=== PATIENT | female | born 1955 | race Caucasian/White ===

== ENCOUNTER 2020-01-27 02:28 | Emergency (ER) | payer OTHER ==
[2020-01-27] MEDS ORDERED: KETOROLAC TROMETHAMINE 30 MG/1 ML VIAL IVPUSH ONE (02:34)
[2020-01-27] MEDS ORDERED: SODIUM CHLORIDE 1,000 ML IV ONE (02:34)
[2020-01-27] MEDS ORDERED: morphine CARPU-JECT 2 MG/1 ML DISP.SYRIN IVPUSH ONE (02:34)
[2020-01-27] MEDS ORDERED: ONDANSETRON 4 MG/2 ML VIAL IVPUSH ONE (02:36)
--- NOTE | 2020-01-27 02:39 | PDOC ---
History of Present Illness - General Chief Complaint: Pain Stated Complaint: LLQ PAIN Time Seen by Provider: 01/27/20 02:33 History Source: Patient Exam Limitations: No Limitations - History of Present Illness Initial Comments: 01/27/20 02:36 This is a 64-year-old female who with family history of kidney stones who comes in complaining of left flank pain times a little over 1 week. Patient said she had severe left flank pain approximately 8 days ago which then resolved and has been dull over the last week but then tonight it became much worse again was associated with some nausea. Patient denies any vomiting or diarrhea. Patient denies any fevers or chills. Patient said she has been peeing more often but no dysuria. Patient said that she had a small amount of pinkish discharge vaginally which has since resolved. Patient is postmenopausal and said she does occasionally have some pinkish discharge. Allergies: as per nursing notes Past Medical History: none Social history: Lives with family. No smoking. No alcohol. No illicit drugs. Surgical history: None General: No fevers or chills, no weakness, no weight loss HEENT: No change in vision. No sore throat,. No ear pain CardioVascular: no chest discomfort. No shortness of breath Respiratory:No cough, or wheezing. Gastrointestinal: no nausea, vomiting, diarrhea or constipation, No rectal bleeding Genitourinary: No dysuria, hematuria, or frequency Musculoskeletal: No joint or muscle pain or swelling Neurologic: No headache, vertigo, dizziness or loss of consciousness Psychiatric: nor depression Skin: No rashes or easy bruising Endocrine: no increased thirst or abnormal weight change Allergic: no skin or latex allergy All other systems reviewed and normal Exam: General: Well-nourished well-developed individual, no acute distress HEENT: Neck: Supple, no meningeal signs, no lymphadenopathy Eyes::Pupils equal reactive and round, extraocular motion intact Chest: Nontender to palpation Abdomen: Soft, nondistended, normal bowel sounds, there is no tenderness on palpation diffusely Back: There is some left flank tenderness on palpation there is no left CVA tenderness. Extremities: Warm, dry, no cyanosis, clubbing, or edema Skin: No rashes Neuro: Alert and oriented x3, CN II - XII intact, nonfocal exam with normal strength, normal sensation, normal reflexes, normal gait, Psych: Normal mood and affect Assessment and plan: This is a 64-year-old female with left flank pain most lik garth secondary to renal stone. Patient has work-up initiated including CBC called UA urine culture and a spiral CT. Patient given fluids, pain medication and nausea medicine occasion. 01/27/20 04:22 Reevaluation patient's pain is resolved at this point. However her CAT scan does show she has a 1.5 x 2.4 mm stone with some mild hydronephrosis. Patient given copy of her CAT scan prescriptions for Percocet and Zofran was sent to the pharmacy. Patient work-up reveals a normal white count but there is some bacteria and white cells in her urine so I gave her a dose of IV ceftriaxone and sent her out on oral MicroBid. Patient will follow-up with a urologist. Past History - Medical History Home Medications: Ambulatory Orders Nitrofurantoin Monohyd/M-Cryst [Macrobid -] 100 mg PO BID #14 capsule 01/27/20 Ondansetron [Zofran -] 8 mg PO TID #15 tablet 01/27/20 Oxycodone HCl/Acetaminophen [Percocet 5-325 mg Tablet] 1 - 2 tab PO Q4H #20 tablet MDD 8 01/27/20 ED Treatment Course - LABORATORY CBC & Chemistry Diagram: 01/27/20 02:50 01/27/20 02:50 Discharge - Discharge Information Problems reviewed: Yes Clinical Impression/Diagnosis: Renal colic on left side, Cystitis Condition: Stable Disposition: HOME - Admission No - Additional Discharge Information Prescriptions: Nitrofurantoin Monohyd/M-Cryst [Macrobid -] 100 mg PO BID #14 capsule Oxycodone HCl/Acetaminophen [Percocet 5-325 mg Tablet] 1 - 2 tab PO Q4H #20 tablet MDD 8 Ondansetron [Zofran -] 8 mg PO TID #15 tablet - Follow up/Referral Referrals: Curry Mejia MD [Staff Physician] - - Patient Discharge Instructions Additional Instructions: Your work-up showed that you have a kidney stone that is causing some mild obstruction. In addition you also have a mild infection in your urine which we have given you a dose of IV antibiotics for however you will need to continue with oral antibiotics. I have sent a prescription to your pharmacy for Macrobid 1 tablet twice a day for 7 days. For pain take ibuprofen or Tylenol if you need something stronger have also sent a prescription to your pharmacy for Percocet 1 tablet every 4 hours as needed for pain. If you develop nausea get the prescription for Zofran and take it 1 tablet as often as every 8 hours. It is important you follow-up with a urologist I have given you the name of 1. Stay well-hydrated Return to the emergency department immediately with ANY new, persistent or worsening symptoms. Continue any medications as previously prescribed by your physician. You should follow up with your primary doctor as soon as possible regarding today's emergency department visit. . Please make sure your doctor reviews the results of your emergency evaluation. Thank you for coming to the Emergency Department today for your care. It was a pleasure to see you today. Please note that your evaluation is INCOMPLETE until you follow-up with your doctor. - Post Discharge Activity
[2020-01-27] MEDS ORDERED: morphine SULFATE 4 MG/ML VIAL ONE (02:54)
[2020-01-27 03:39] LABS: BASO % 0.8 % (0-2.0); EOS % 3.8 % (0-4.5); HEMATOCRIT 39.8 % (32.4-45.2); HEMOGLOBIN 13.4 GM/dL (10.7-15.3); LYMPH % 30.2 % (8-40); MCH 27.7 pg (25.7-33.7); MCHC 33.5 g/dl (32.0-36.0); MEAN CELL VOLUME 82.7 fl (80-96); NEUT % 57.2 % (42.8-82.8); PLATELET COUNT 269 K/MM3 (134-434); RBC 4.81 M/mm3 (3.60-5.2); RDW 13.3 % (11.6-15.6); WHITE BLOOD COUNT 8.6 K/mm3 (4.0-10.0)
[2020-01-27 03:54] LABS: EPI CELLS 6 /uL (0-25.1); HYALINE CASTS 6 /uL (0-3.1); URINE APPEARANCE CLOUDY; URINE BILIRUBIN NEGATIVE (NEGATIVE); URINE COLOR YELLOW; URINE GLUCOSE (UA) NEGATIVE (NEGATIVE); URINE KETONE NEGATIVE (NEGATIVE); URINE LEUK ESTERASE 3+ (NEGATIVE); URINE NITRITE POSITIVE (NEGATIVE); URINE PROTEIN 1+ (NEGATIVE); URINE RBC 72 /uL (0-23.9); URINE UROBILINOGEN 0.2 mg/dL (0.2-1.0); URINE WBC 1459 /uL (0-25.8)
[2020-01-27 04:01] LABS: ALBUMIN 3.7 g/dl (3.4-5.0); BLOOD UREA NITROGEN 20.5 mg/dL (7-18); CALCIUM 9.4 mg/dL (8.5-10.1); CREATININE 0.9 mg/dL (0.55-1.3); POTASSIUM 4.3 mmol/L (3.5-5.1); TOT PROT 6.7 g/dl (6.4-8.2)
[2020-01-27] MEDS ORDERED: CEFTRIAXONE 1,000 MG in DEXTROSE 5%-WATER - 50 ML IVPB ONE (04:09)
[2020-01-27] MEDS ORDERED: cefTRIAXone SODIUM 1 GM VIAL ONE (04:09)
[2020-01-27 04:11] LABS: BILIRUBIN,TOTAL 0.4 mg/dL (0.2-1)
[2020-01-27] MEDS ORDERED: CEFTRIAXONE 1 GM in DEXTROSE 5%-WATER - 50 ML IVPB ONE (04:37)
[2020-01-27 04:56] VITALS: TEMP 98.8; BMI 25.4
[2020-01-27 05:16] VITALS: BP 136/80; PULSE 86
== END 2020-01-27 05:17 | disposition home or self-care (01) ==
LOC: FER 02:28
PROC: 3E0337Z Introduction of Electrolytic and Water Balance Substance into Peripheral Vein, Percutaneous Approach (ICD-10-PCS; principal; 2020-01-27)
PROC: 3E033GC Introduction of Other Therapeutic Substance into Peripheral Vein, Percutaneous Approach (ICD-10-PCS; principal; 2020-01-27)
DX: N30.90 Cystitis, unspecified without hematuria (principal); N23 Unspecified renal colic
CPT/HCPCS: 36415; 74176-TC; 80053; 81003; 85025; 87086; 87186; 96361; 96365; 96375; 99285-25

== ENCOUNTER 2020-01-30 18:29 | Emergency (ER) | payer OTHER ==
[2020-01-30 18:47] VITALS: BMI 26.5
[2020-01-30] MEDS ORDERED: ACETAMINOPHEN INJECTION 100 ML IVPB ONE (20:51)
[2020-01-30] MEDS ORDERED: ACETAMINOPHEN 1000 MG/100 ML VIAL (NON FORMULARY) IVPB ONE (20:51)
[2020-01-30 21:08] LABS: BASO % 0.3 % (0-2.0); EOS % 1.1 % (0-4.5); HEMATOCRIT 35.6 % (32.4-45.2); HEMOGLOBIN 12.3 GM/dl (10.7-15.3); LYMPH % 8.3 % (8-40); MCH 27.6 pg (25.7-33.7); MCHC 34.5 g/dl (32.0-36.0); MEAN CELL VOLUME 79.8 fl (80-96); MEAN PLT VOLUME 8.9 fl (7.5-11.1); MONO % 7.8 % (3.8-10.2); NEUT % 82.5 % (42.8-82.8); PLATELET COUNT 261 K/MM3 (134-434); RBC 4.46 M/mm3 (3.60-5.2); RDW 12.5 % (11.6-15.6); WHITE BLOOD COUNT 9.1 K/mm3 (4.0-10.8)
[2020-01-30 21:16] LABS: ALBUMIN 3.4 g/dl (3.4-5.0); BILIRUBIN,TOTAL 0.4 mg/dl (0.2-1); CALCIUM 8.7 mg/dl (8.5-10); CREATININE 1.1 mg/dl (0.55-1.3); POTASSIUM 4.4 mmol/L (3.5-5.1); TOT PROT 6.2 g/dl (6.4-8.2)
[2020-01-30 22:05] VITALS: BP 124/67; PULSE 84; TEMP 98.5
[2020-01-30] MEDS ORDERED: KETOROLAC TROMETHAMINE 30 MG/1 ML VIAL IVPUSH ONE (23:11)
[2020-01-30] MEDS ORDERED: KETOROLAC TROMETHAMINE 30 MG/1 ML VIAL ONE (23:20)
--- NOTE | 2020-01-31 05:29 | PDOC ---
Documentation entered by Skyler Caban SCRIBE, acting as scribe for Vilma Saini MD. Vilma Saini MD: This documentation has been prepared by the Arsh chong Xhesika, SCRIBE, under my direction and personally reviewed by me in its entirety. I confirm that the documentation accurately reflects all work, treatment, procedures, and medical decision making performed by me. History of Present Illness - General History Source: Patient Exam Limitations: No Limitations - History of Present Illness Initial Comments: 01/30/20 19:52 The patient is a 64y/o F with a PMH of kidney stones who presents to the ED with fever. Pt was seen here in the ED on 01/27/20 for fever and flank pain, had a CT scan which showed small stone with hydronephrosis and patient was discharged home on pain medication. Pt states this morning she had a fever of 100.6 at home. Pt notes she was suppose to see her urologist this morning, but had to cancel her appointment because she had a fever. Pt notes she has been drinking fluids, but has not had an appetite. Pt states he takes Tylenol for her pain but did not take anything this afternoon. No previous history of kidney stones in the patient although she does have a strong family history of renal colic The patient denies chest pain, shortness of breath, headache and dizziness. Denies cough, nausea, vomiting, diarrhea and constipation. Denies dysuria, frequency, urgency and hematuria. Allergies: NKDA <Vilma Saini - Last Filed: 01/31/20 05:29> <Vera Pittman - Last Filed: 01/31/20 19:42> - General Chief Complaint: Pain Stated Complaint: Fever/UTI/Kidney stone Time Seen by Provider: 01/30/20 19:31 Past History - Medical History COPD: No - Psycho-Social/Smoking History Smoking History: Never smoked Have you smoked in the past 12 months: No - Substance Abuse Hx (Audit-C & DAST Scrn) How often the patient has a drink containing alcohol: Never Score: In Men: 4 or > Positive; In Women: 3 or > Positive: 0 Screen Result (Pos requires Nsg. Audit-10AR): Negative <Vilma Saini - Last Filed: 01/31/20 05:29> <Vera Pittman - Last Filed: 01/31/20 19:42> - Medical History Allergies/Adverse Reactions: Allergies Allergy/AdvReac Type Severity Reaction Status Date / Time Penicillins Allergy Verified 01/31/20 19:27 Home Medications: Ambulatory Orders Ondansetron [Zofran -] 8 mg PO TID #15 tablet 01/27/20 Oxycodone HCl/Acetaminophen [Percocet 5-325 mg Tablet] 1 - 2 tab PO Q4H #20 tablet MDD 8 01/27/20 Acetaminophen [Tylenol -] 1,000 mg PO ASDIR 01/31/20 Levofloxacin [Levaquin] 750 mg PO DAILY #10 tablet 01/31/20 Review of Systems - Review of Systems Able to Perform ROS?: Yes Comments:: 01/30/20 19:54 GENERAL/CONSTITUTIONAL: +fever. No chills. No weakness. HEAD, EYES, EARS, NOSE AND THROAT: No change in vision. No ear pain or discharge. No sore throat. CARDIOVASCULAR: No chest pain or shortness of breath. RESPIRATORY: No cough, wheezing, or hemoptysis. GASTROINTESTINAL: No nausea, vomiting, diarrhea or constipation. GENITOURINARY: No dysuria, frequency, or change in urination. +L flank pain MUSCULOSKELETAL: No joint or muscle swelling or pain. No neck or back pain. SKIN: No rash NEUROLOGIC: No headache, vertigo, loss of consciousness, or change in strength/sensation. ENDOCRINE: No increased thirst. No abnormal weight change. HEMATOLOGIC/LYMPHATIC: No anemia, easy bleeding, or history of blood clots. ALLERGIC/IMMUNOLOGIC: No hives or skin allergy. <Vilma Saini - Last Filed: 01/31/20 05:29> *Physical Exam - Vital Signs Last Vital Signs Temp Pulse Resp BP Pulse Ox 101 F H 88 20 154/91 100 01/30/20 18:41 01/30/20 18:41 01/30/20 18:41 01/30/20 18:41 01/30/20 18:41 - Physical Exam 01/30/20 19:54 GENERAL: Awake, alert, and fully oriented, in no acute distress HEAD: No signs of trauma EYES: PERRLA, EOMI, sclera anicteric, conjunctiva clear ENT: Auricles normal inspection, hearing grossly normal, nares patent, oropharynx clear without exudates. +dry mucous membranes NECK: Normal ROM, supple, no lymphadenopathy, JVD, or masses LUNGS: Breath sounds equal, clear to auscultation bilaterally. No wheezes, and no crackles HEART: Regular rate and rhythm, normal S1 and S2, no murmurs, rubs or gallops ABDOMEN: Soft, nontender, normoactive bowel sounds. No guarding, no rebound. No masses BACK: +mild L CVA tenderness. EXTREMITIES: Normal range of motion, no edema. No clubbing or cyanosis. No cords, erythema, or tenderness NEUROLOGICAL: Cranial nerves II through XII grossly intact. Normal speech, normal gait SKIN: Warm, Dry, normal turgor, no rashes lesions noted. <Vilma Saini - Last Filed: 01/31/20 05:29> - Vital Signs Last Vital Signs Temp Pulse Resp BP Pulse Ox 98.5 F 84 20 124/67 97 01/30/20 22:04 01/30/20 22:04 01/30/20 18:41 01/30/20 22:04 01/30/20 22:04 <Vera Pittman - Last Filed: 01/31/20 19:42> ED Treatment Course - LABORATORY CBC & Chemistry Diagram: 01/30/20 20:42 01/30/20 20:42 - ADDITIONAL ORDERS Additional order review: Laboratory Results 01/30/20 19:04 Urine Color Yellow Urine Appearance Clear Urine pH 7.0 Urine Protein Negative Urine Glucose (UA) Negative Urine Ketones Negative Urine Blood 2+ H Urine Nitrite Negative Urine Bilirubin Negative Urine Urobilinogen 0.2 Ur Leukocyte Esterase 2+ Urine RBC 20-40 Urine WBC 80-100 <Vilma Saini - Last Filed: 01/31/20 05:29> - LABORATORY CBC & Chemistry Diagram: 01/30/20 20:42 01/30/20 20:42 - ADDITIONAL ORDERS Additional order review: Laboratory Results 01/30/20 20:42 WBC 9.1 RBC 4.46 Hgb 12.3 Hct 35.6 MCV 79.8 L MCH 27.6 MCHC 34.5 RDW 12.5 Plt Count 261 MPV 8.9 Absolute Neuts (auto) 7.5 Neutrophils % 82.5 Lymphocytes % 8.3 Monocytes % 7.8 Eosinophils % 1.1 Basophils % 0.3 01/30/20 20:42 RBC 4.46 MCV 79.8 L MCHC 34.5 RDW 12.5 MPV 8.9 Neutrophils % 82.5 Lymphocytes % 8.3 Monocytes % 7.8 Eosinophils % 1.1 Basophils % 0.3 - Medications Given in the ED: ED Medications Discontinued Medications Generic Name Dose Route Start Last Admin Trade Name Mg PRN Reason Stop Dose Admin Acetaminophen 1,000 mg 01/30/20 20:51 01/30/20 20:59 Ofirmev Injection - IVPB 01/30/20 20:52 1,000 mg ONCE ONE Administration Levofloxacin 750 mg in 150 mls @ 100 mls/hr 01/30/20 23:08 01/30/20 23:15 Levaquin 750 Mg Premixed Ivpb - IVPB 01/31/20 00:37 100 mls/hr ONCE ONE Administration Protocol Ketorolac Tromethamine 30 mg 01/30/20 23:11 01/30/20 23:22 Toradol Injection - IVPUSH 01/30/20 23:12 30 mg ONCE ONE Administration <Vera Pittman - Last Filed: 01/31/20 19:42> ED Progress Note - Progress Note Progress Note: As noted above, this 64-year-old woman presents with persistent left flank pain and new fever. The patient was seen here 3 nights ago with UTI and renal stone protocol CTA revealed large stone of the left renal pelvis extending partially into the lower pole infundibulum (2.0 x 1.3 x 0.7 cm). Patient was discharged with antibiotics (nitrofurantoin) with urologic follow-up with Dr. Mejia group. Patient states that she had done fairly well for 2 days but awakened this morning with fever (100.2 F in the a.m. and likewise 100.4 F in the afternoon) on arrival here, her oral temperature is 101 degrees (patient took Tylenol in the morning but did not take another dose in the afternoon. She denies dysuria/hematuria. Exam as noted with mild left CVA tenderness Review of the culture and sensitivity of urine (01/26) reveals that predominant organism in the urine was E. coli sensitive to all antibiotics except nitrofurantoin. Because of the patient's fever and persistent pain, IV access was obtained and CBC/chemistry profile drawn. Patient received a liter normal saline and a gram of acetaminophen IV Because of the onset of fever and persistent pain, repeat renal stone protocol CT planned to evaluate for perinephric abscess or other complications of UTI in the presence of kidney stone. Repeat temperature after patient finished IV acetaminophen: 98.6 F CBC and chemistry profile is essentially normal Interpretation of the abdominal/pelvic CT by Dr. Rey of the radiology staff: No definitive interval change in comparison to CT dated 01/27/2020. 2.0 x 1.3 x 0.7 cm calculus continues to be noted within the left renal pelvis extending partially into the lower pole infundibulum. There was resultant mild to moderate hydronephrosis no fluid collection or abscess present. Patient received Levaquin 750 mg IV for treatment however urinary tract infection Case discussed with Dr. Mejia who is scheduled to see the patient in follow-up. Since she is more comfortable, afebrile and laboratory evaluation data is essentially normal, the patient can be discharged with prescription for oral Levaquin 750 mg daily. If the patient experiences an increase in pain, persistent fever or vomiting, she should return to the ER. Otherwise, she can follow-up with Dr. Mejia as scheduled on February 02 <Vilma Saini - Last Filed: 01/31/20 05:29> Medical Decision Making - Medical Decision Making 01/31/20 19:42 Urine culture from 01/27/2020 with Proteus Mirabella's that is pansensitive. Patient had her ED visits from 01/26 and 01/29 reviewed. Patient was noted to have 2 CTs done in the span of 2 ED visits which does reveal persistent left renal pelvis stone measuring 2 x 1.3 x 0.7 cm extending into the lower pole infundibulum associated with mild to moderate hydronephrosis, there is no perirenal abscess or fluid. Vital signs here were notable for fevers, 103.1 tachycardia, normotensive. Repeat laboratory results, lactic acid, urine culture and urinalysis IV antibiotics, ceftriaxone admission. <Vera Pittman - Last Filed: 01/31/20 19:42> Discharge - Discharge Information Problems reviewed: Yes <Vilma Saini - Last Filed: 01/31/20 05:29> <Vera Pittman - Last Filed: 01/31/20 19:42> - Discharge Information Clinical Impression/Diagnosis: Kidney stone on left side UTI (urinary tract infection) Qualifiers: Urinary tract infection type: site unspecified Hematuria presence: without hematuria Qualified Code(s): N39.0 - Urinary tract infection, site not specified Condition: Stable Disposition: HOME - Additional Discharge Information Prescriptions: Levofloxacin [Levaquin] 750 mg PO DAILY #10 tablet - Follow up/Referral Referrals: ON STAFF,NOT [Primary Care Provider] - - Patient Discharge Instructions Patient Printed Discharge Instructions: Urinary Tract Infection Additional Instructions: Drink plenty of water Stop Macrobid; begin Levaquin 750 mg daily (next dose tomorrow, Sunday) Tylenol/Motrin as needed for pain or fever Return to ER if you have persistent fever, increased pain, vomiting Follow-up with on February 02 as scheduled
== END 2020-01-31 00:52 | disposition home or self-care (01) ==
LOC: FER 18:29 → SUPCPDRO 18:29 → FER 01-31 00:52
PROC: 3E033GC Introduction of Other Therapeutic Substance into Peripheral Vein, Percutaneous Approach (ICD-10-PCS; principal; 2020-01-30)
DX: N20.0 Calculus of kidney (principal); N39.0 Urinary tract infection, site not specified
CPT/HCPCS: 36415; 74176-TC; 80053; 81003; 81015; 85025; 87040; 87086; 99285-25; J0131

== ENCOUNTER 2020-01-31 19:20 | Inpatient (IN) | payer OTHER ==
[2020-01-31] MEDS ORDERED: ACETAMINOPHEN 325 MG TABLET (FP) PO ONE (19:35)
[2020-01-31] MEDS ORDERED: SODIUM CHLORIDE 1,000 ML IV STA (19:35)
[2020-01-31] MEDS ORDERED: ACETAMINOPHEN 325 MG TABLET (FP) ONE (19:51)
[2020-01-31 19:58] LABS: HEMATOCRIT 36.3 % (32.4-45.2); HEMOGLOBIN 12.2 GM/dl (10.7-15.3); MCH 27.1 pg (25.7-33.7); MCHC 33.7 g/dl (32.0-36.0); MEAN CELL VOLUME 80.4 fl (80-96); MEAN PLT VOLUME 8.4 fl (7.5-11.1); PLATELET COUNT 265 K/MM3 (134-434); RBC 4.52 M/mm3 (3.60-5.2); RDW 12.4 % (11.6-15.6); WHITE BLOOD COUNT 9.8 K/mm3 (4.0-10.8)
[2020-01-31] MEDS ORDERED: ONDANSETRON 4 MG/2 ML VIAL IVPUSH ONE (19:58)
[2020-01-31 20:00] LABS: EPITHELIAL CELLS FEW /hpf
[2020-01-31] MEDS ORDERED: ONDANSETRON 4 MG/2 ML VIAL ONE (20:03)
[2020-01-31] MEDS ORDERED: CEFTRIAXONE 1,000 MG in DEXTROSE 5%-WATER - 50 ML IVPB ONE (20:06)
[2020-01-31 20:16] LABS: ALBUMIN 3.2 g/dl (3.4-5.0); BILIRUBIN,TOTAL 0.7 mg/dl (0.2-1); CALCIUM 8.5 mg/dl (8.5-10); CREATININE 1.3 mg/dl (0.55-1.3); TOT PROT 6.1 g/dl (6.4-8.2)
[2020-01-31] MEDS ORDERED: cefTRIAXone SODIUM 1 GM VIAL ONE (20:21)
--- NOTE | 2020-01-31 20:38 | PDOC ---
Documentation entered by Skyler Caban SCRIBE, acting as scribe for Vera Pittman MD. Vera Pittman MD: This documentation has been prepared by the Arsh chong Xhesika, SCRIBE, under my direction and personally reviewed by me in its entirety. I confirm that the documentation accurately reflects all work, treatment, procedures, and medical decision making performed by me. History of Present Illness - General Chief Complaint: Tremors Stated Complaint: CHILLS, FEVER Time Seen by Provider: 01/31/20 19:30 History Source: Patient Exam Limitations: No Limitations - History of Present Illness Initial Comments: 01/31/20 19:38 HPI The patient is a 64y/o F with no PMH who presents to the ED with sudden onset tremors at 6:30PM. Pt was seen here in the ED on 01/27/20 and 01/30/20 for fever and flank pain, had a CT scan which showed small stone with mild-moderate hydronephrosis and patient was discharged home on abx (did not take any abx since her hospital visit on 01/30/20). Pt reports at around 6:30 PM, she endorsed shakes and rigors. Pt states she was not able to hold anything in her hands due to her tremors. Per daughter, she witnessed the tremors and reports the pt's lips turned purple and she became pale. Pt reports associated headache, fever and abdominal bloating. Pt states she last took Tylenol 1000mg at 4:30PM. While in the the ED patient endorsed 1 episode of yellow emesis. Pt reports LUQ abdom inal pain, 6/10 in severity, described as a "knot feeling." Denies chest pain, SOB, palpitation, dizziness, weakness, N, D, bladder and bowel problems, focal weakness/paresthesias, leg swelling/pain, rash. No sick contacts or travel. No new changes in medications. No suspicious food intake Allergies: Penicillins Past Medical History/PSH: Appendectomy, tonsillectomy, cholecystectomy, prolapse -urethral sling and mesh. Social history: Lives with family. No tobacco, ETOH or drug use. Meds: as documented in EMR Family history: noncontributory PMD: Dr. Addison @ [facility] Review of systems Constitutional: No weakness. +tremors. +fevers and chills HEENT: +headache. No dizziness. No congestion. No visual/hearing disturbances. CVS: no cp or syncope. Resp: no sob. No cough. Gastrointestinal: no abdominal pain, nausea, diarrhea. +vomiting. +LUQ abdominal pain. +Bloating Genitourinary: no urinary sx, hematuria. MUSCULOSKELETAL: No joint pain and swelling. No neck or back pain. SKIN: no redness or skin changes, no discharge, no rash. No wounds. Hematologic: no easy bruising/bleeding. NEUROLOGIC: No dizziness, LOC or altered mental status. No weakness, numbness or tingling. Psych: no anxiety or depression Allergic/Immunologic: +med allergies All other systems reviewed and negative, or as documented in HPI. PE General: malaised appearing, awake and alert, NAD. HEENT: NCAT, PERRL, EOMI, clear conjunctiva, anicteric, moist mucous membranes, clear oropharynx, no oral lesions.. Neck: neck supple, FROM Resp: CTAB, normal and even respirations, no respiratory distress CVS: RRR, no murmurs, 2+ peripheral pulses throughout, no peripheral edema Abdomen: + Laparoscopic abdominal scars/ RUQ large cholecystectomy scar. soft, no rebound or guarding. no CVAT. +Left flank TTP Back: normal inspection and ROM] MSK: no edema, CASTANEDA x4, ROM intact. No clubbing or cyanosis. normal bulk and tone. Neuro: alert, oriented appropriately; no focal neurologic deficits Skin: warm and well perfused, cap refill <2 sec, normal color 01/31/20 20:54 01/31/20 21:52 Past History - Medical History Allergies/Adverse Reactions: Allergies Allergy/AdvReac Type Severity Reaction Status Date / Time Penicillins Allergy Verified 01/31/20 19:27 Home Medications: Ambulatory Orders Ondansetron [Zofran -] 8 mg PO TID #15 tablet 01/27/20 Oxycodone HCl/Acetaminophen [Percocet 5-325 mg Tablet] 1 - 2 tab PO Q4H #20 tablet MDD 8 01/27/20 Acetaminophen [Tylenol -] 1,000 mg PO ASDIR 01/31/20 Levofloxacin [Levaquin] 750 mg PO DAILY #10 tablet 01/31/20 COPD: No Kidney Stones: Yes - Surgical History Appendectomy: Yes Cholecystectomy: Yes - Psycho-Social/Smoking History Smoking History: Never smoked Have you smoked in the past 12 months: No Information on smoking cessation initiated: No - Substance Abuse Hx (Audit-C & DAST Scrn) How often the patient has a drink containing alcohol: Never Score: In Men: 4 or > Positive; In Women: 3 or > Positive: 0 Screen Result (Pos requires Nsg. Audit-10AR): Negative In the last yr the pt used illegal drug/Rx for NonMed reason: No Score: Yes response is considered Positive: 0 Screen Result (Positive result requires Nsg. DAST-10): Negative *Physical Exam - Vital Signs Last Vital Signs Temp Pulse Resp BP Pulse Ox 103.1 F H 102 H 20 107/65 96 01/31/20 19:20 01/31/20 19:20 01/31/20 19:20 01/31/20 19:20 01/31/20 19:20 Heart Score/ECG Review #1 ECG reviewed & interpreted by me at: 19:45 General ECG Interpretation: Sinus Rhythm, Normal Intervals 01/31/20 21:51 EKG normal sinus rhythm 96 bpm, no interval abnormalities, narrow QRS, ST and T wave segments and morphology normal. Nonspecific T wave abnormalities ED Treatment Course - LABORATORY CBC & Chemistry Diagram: 01/31/20 19:52 01/31/20 19:37 Medical Decision Making - Medical Decision Making 01/31/20 20:55 Vital Signs Temp Pulse Resp BP Pulse Ox 103.1 F H 102 H 20 107/65 96 01/31/20 19:20 01/31/20 19:20 01/31/20 19:20 01/31/20 19:20 01/31/20 19:20 vitals reviewed 01/31/20 21:02 Febrile tachycardia, normotensive. Breathing comfortably, normal respirations This is a 3rd ED visit for the patient Patient had several ED visits on 01/26 and 01/29, diagnosed with left renal pelvis kidney stone on 2 CT images. Measuring 0.7 x 2 x 1.3 cm. Which is also causing mild to moderate hydronephrosis and obstruction. There is no abscess or free fluid noted. Patient received IV Levaquin yesterday has not taken any antibiotics today as it was not due for yet. Patient continues to have fevers chills and rigors. Patient presents with evidence of early sepsis Laboratory results are repeated, normal CBC count which is reassuring Creatinine is preserved, normal electrolytes reassuring Lactic acid 2.5, hydrate and recheck, repeat placed. Patient given IV fluids, Tylenol, Toradol, Zofran, IV ceftriaxone. Unlikely to cross-react given her history of penicillin allergy, only rash, no evidence of anaphylaxis. Urine cultures were also reviewed from 01/27/2020 which showed Proteus Mirabilis, pansensitive. Urology consultation with Dr. Gloria Jordan, superannuation clerk doctor vicky is Dr James who was updated with clinical exam and findings will admit for IV abx, for obstructed ureterolilthiasis and concomittant UTI/septic stone. abx, will need OR capabilities give pt may get more sick and require OR capabilities urology will followup, IV abx and medical management for now. will likely need ureteral stent to relieve infection/obstruction as inpatient treat as acute pyelonephritis/sepsis 2/2 UTI and obstructed left renal pelvic stone measuring up to 2cm. admit to hospitalist service, Dr Moe transfer to [facility] med/surg bed attempted, but no beds available. will stay at [facility] for now, medical management, uro cs covid 19 swab pending, low risk 01/31/20 21:50 01/31/20 21:51 Discharge - Discharge Information Problems reviewed: Yes Clinical Impression/Diagnosis: Ureterolithiasis, Pyelonephritis of left kidney Condition: Fair - Admission Yes - Follow up/Referral - Patient Discharge Instructions - Post Discharge Activity
[2020-01-31 21:04] LABS: ACTIVATED PTT 20.3 SECONDS (25.2-36.5)
[2020-01-31 21:08] LABS: INR 1.34 (0.82-1.09); PROTHROMBIN TIME (PATIENT) 14.9 SEC (10.2-13.0)
[2020-01-31] MEDS ORDERED: KETOROLAC TROMETHAMINE 15 MG/ML VIAL IVPUSH ONE (21:33)
[2020-01-31] MEDS ORDERED: KETOROLAC TROMETHAMINE 15 MG/ML VIAL ONE (21:37)
[2020-01-31] MEDS: SODIUM CHLORIDE 1,000 ML IV SCH (23:00)
--- NOTE | 2020-01-31 23:30 | HP ---
CHIEF COMPLAINT: Abdominal Pain, Fever, Chills PCP: Cyn ([facility]) HISTORY OF PRESENT ILLNESS: This is a 64 y/o female with no significant past medical history. Who presents to the ED for subjective fevers 103.0, chills, worsening left upper quadrant pain with NB bilious emesis x tonight. Per patient she was seen in the ED on 01/26, 01/29 for fever and left flank pain, treated with IV ABx in the ED then d/cd with rx- Levaquin with no improvement. Patient reports that she had chills with "trembling" in which the patient's daughter reported to the ED, that she became pale with a purple hue to her lips. Patient reports constipation x several days as well. Patient denies having a hx of renal calculi. Patient denies cough, SOB, dizziness, CP, palpitations, diarrhea, melena, hematochezia, dysuria. Patient denies sick contacts or recent travel ER course was notable for: (1) Sepsis Criteria Met IV (2) Cr 1.3 (3) Recent Travel: None PAST MEDICAL HISTORY: None PAST SURGICAL HISTORY: Tonsillectomy Sinus repair Cholecystectomy Appendectomy Urethral sling and Mesh (Prolapse) Social History: Smoking: None Alcohol: None Drugs: None Lives with family Allergies Penicillins Allergy (Verified 01/31/20 19:27) HOME MEDICATIONS: Home Medications Medication Instructions Recorded Ondansetron [Zofran -] 8 mg PO TID #15 tablet 01/27/20 Oxycodone HCl/Acetaminophen 1 - 2 tab PO Q4H #20 tablet MDD 8 01/27/20 [Percocet 5-325 mg Tablet] Acetaminophen [Tylenol -] 1,000 mg PO ASDIR 01/31/20 Levofloxacin [Levaquin] 750 mg PO DAILY #10 tablet 01/31/20 REVIEW OF SYSTEMS CONSTITUTIONAL: fever, chills Absent: diaphoresis, generalized weakness, malaise, loss of appetite, weight c hange HEENT: Absent: rhinorrhea, nasal congestion, throat pain, throat swelling, difficulty swallowing, mouth swelling, ear pain, eye pain, visual changes CARDIOVASCULAR: Absent: chest pain, syncope, palpitations, irregular heart rate, lightheadedness, peripheral edema RESPIRATORY: Absent: cough, shortness of breath, dyspnea with exertion, orthopnea, wheezing, stridor, hemoptysis GASTROINTESTINAL:: abdominal pain, nausea, vomiting, constipation Absent: abdominal distension, diarrhea, melena, hematochezia GENITOURINARY: flank pain Absent: dysuria, frequency, urgency, hesitancy, hematuria, genital pain MUSCULOSKELETAL: Absent: myalgia, arthralgia, joint swelling, back pain, neck pain SKIN: Absent: rash, itching, pallor HEMATOLOGIC/IMMUNOLOGIC: Absent: easy bleeding, easy bruising, lymphadenopathy, frequent infections ENDOCRINE: Absent: unexplained weight gain, unexplained weight loss, heat intolerance, cold intolerance NEUROLOGIC: Absent: headache, focal weakness or paresthesias, dizziness, unsteady gait, seizure, mental status changes, bladder or bowel incontinence PSYCHIATRIC: Absent: anxiety, depression, suicidal or homicidal ideation, hallucinations. PHYSICAL EXAMINATION Vital Signs - 24 hr 01/31/20 01/31/20 19:20 21:33 Temperature 103.1 F H 102.8 F H Pulse Rate 102 H Pulse Rate [ 95 H Right] Respiratory 20 Rate Blood Pressure 107/65 Blood Pressure 108/67 [Left Arm] O2 Sat by Pulse 96 95 Oximetry (%) GENERAL: Awake, alert, and fully oriented, in no acute distress. HEAD: Normal with no signs of trauma. EYES: Pupils equal, round and reactive to light, extraocular movements intact, sclera anicteric, conjunctiva clear. No lid lag. EARS, NOSE, THROAT: Ears normal, nares patent, oropharynx clear without exudates. Dry mucous membranes. NECK: Normal range of motion, supple without lymphadenopathy, JVD, or masses. LUNGS: Breath sounds equal, clear to auscultation bilaterally. No wheezes, and no crackles. No accessory muscle use. HEART: Regular rate and rhythm, normal S1 and S2 without murmur, rub or gallop. ABDOMEN: Tenderness to LUQ/Torsos aspect, hypoactive bowel sounds, Soft, not distended,, no guarding, no rebound, no masses. No hepatomegaly or splenomegaly. MUSCULOSKELETAL: Normal range of motion at all joints. No bony deformities or tenderness. No CVA tenderness. UPPER EXTREMITIES: 2+ pulses, warm, well-perfused. No cyanosis. No clubbing. No peripheral edema. LOWER EXTREMITIES: 2+ pulses, warm, well-perfused. No calf tenderness. No peripheral edema. NEUROLOGICAL: Cranial nerves II-XII intact. Normal speech. Gait not observed. PSYCHIATRIC: Cooperative. Good eye contact. Appropriate mood and affect. SKIN: Warm, dry, normal turgor, no rashes or lesions noted, normal capillary refill. Laboratory Results - last 24 hr 01/31/20 01/31/20 01/31/20 19:37 19:45 19:52 WBC 9.8 RBC 4.52 Hgb 12.2 Hct 36.3 MCV 80.4 MCH 27.1 MCHC 33.7 RDW 12.4 Plt Count 265 MPV 8.4 Absolute Neuts (auto) 9.2 Neutrophils % 92.7 H Lymphocytes % 3.5 L Monocytes % 2.4 L Eosinophils % 0.4 Basophils % 1.0 PT with INR INR PTT (Actin FS) Sodium 135 L Potassium 4.0 Chloride 98 Carbon Dioxide 23 Anion Gap 14 BUN 20.0 H Creatinine 1.3 Est GFR (CKD-EPI)AfAm 50.21 Est GFR (CKD-EPI)NonAf 43.32 Random Glucose 130 H Lactic Acid Calcium 8.5 Total Bilirubin 0.7 AST 54 H ALT 66 H Alkaline Phosphatase 95 Total Protein 6.1 L Albumin 3.2 L Urine Color Yellow Urine Appearance Slightly Urine pH 5.5 Urine Protein 3+ H Urine Glucose (UA) Negative Urine Ketones Trace Urine Blood 3+ H Urine Nitrite Negative Urine Bilirubin 1+ H Urine Urobilinogen 0.2 Ur Leukocyte Esterase Negative Urine RBC 40-60 Urine WBC 10-20 Ur Transition Epith Cell Few Urine Bacteria Few Blood Type 01/31/20 01/31/20 01/31/20 19:52 20:55 21:01 WBC RBC Hgb Hct MCV MCH MCHC RDW Plt Count MPV Absolute Neuts (auto) Neutrophils % Lymphocytes % Monocytes % Eosinophils % Basophils % PT with INR 14.9 H INR 1.34 H PTT (Actin FS) 20.3 L Sodium Potassium Chloride Carbon Dioxide Anion Gap BUN Creatinine Est GFR (CKD-EPI)AfAm Est GFR (CKD-EPI)NonAf Random Glucose Lactic Acid 2.5 H* Calcium Total Bilirubin AST ALT Alkaline Phosphatase Total Protein Albumin Urine Color Urine Appearance Urine pH Urine Protein Urine Glucose (UA) Urine Ketones Urine Blood Urine Nitrite Urine Bilirubin Urine Urobilinogen Ur Leukocyte Esterase Urine RBC Urine WBC Ur Transition Epith Cell Urine Bacteria Blood Type O POSITIVE ASSESSMENT/PLAN: This is a 64 y/o female with no PMHx. Admitted to M/S for Sepsis, Urethralithiasis with Hydronephrosis, Pyelonephritiis, UTI for further evalu ation of their emergent condition. Plan: See Problem List FEN NS@75ml/hr Replete lytes prn NPO Dispo: Requires Inpatient care Family Medical History Family Hx Diabetes: Father () Problem List - Problem (1) Sepsis Assessment/Plan: Likely secondary to UTI vs Left Renal Stone with Hydronephrosis Failed Outpatient Therapy (Levaquin) qSOFA 1, not high risk Sepsis Criteria Met: T 103.1, P 102, BUN 20, Lactic Acid 2.5 No leukocytosis likely due to recent ABx use Blood Cultures-pending Urine Culture 01/26- Proteus Mirabilis Repeat Urine Culture-pending NS bolus, Ceftriaxone given in ED Will start Aztreonam for sensitivity to proteus mirabilis, patient is PCN allergic Appreciate ID consult Monitor CBC, CMP Trend Lactic Acid Chest Xray image reviewed Maintain MAP > 65 IVF Tylenol prn Monitor vitals Code(s): A41.9 - SEPSIS, UNSPECIFIED ORGANISM (2) UTI (urinary tract infection) Assessment/Plan: will treat for Complicated UTI see above Code(s): N39.0 - URINARY TRACT INFECTION, SITE NOT SPECIFIED (3) Ureterolithiasis Assessment/Plan: Reviewed CTAP from 01/26, 01/29 Appreciate Urology Consult Renal and Pelvic Us in am Monitor CBC, CMP Morphine Sulfate prn pain control Code(s): N20.1 - CALCULUS OF URETER (4) Pyelonephritis of left kidney Assessment/Plan: see above Continue ABX IVF Code(s): N12 - TUBULO-INTERSTITIAL NEPHRITIS, NOT SPCF ACUTE OR CHRONIC (5) LAINE (acute kidney injury) Assessment/Plan: Likely due to Ureteralithiasis with Hydronephrosis Cr 1.3 (baseline 0.7-1.1) Continue IVF Monitor CMP Code(s): N17.9 - ACUTE KIDNEY FAILURE, UNSPECIFIED (6) Encounter for screening laboratory testing for COVID-19 virus Assessment/Plan: low risk Covid PCR-pending Isolation Precautions Code(s): Z11.59 - ENCOUNTER FOR SCREENING FOR OTHER VIRAL DISEASES Visit type - Emergency Visit Emergency Visit: Yes ED Registration Date: 01/31/20 Care time: The patient presented to the Emergency Department on the above date and was hospitalized for further evaluation of their emergent condition. - New Patient This patient is new to me today: Yes Date on this admission: 01/31/20 - Critical Care Critical Care patient: No
--- NOTE | 2020-01-31 23:59 | CONSULT ---
Consult Consult Specialty:: UROLOGY Reason for Consultation:: UTI & L Renal stone - History of Present Illness Chief Complaint: 64 Y/O Female patient with history of renal stone has multiple ER visit last week with LUQ abdominal pain, no hematuria or dysuria. She was treated with oral abx and discharged home, today she presented with LUQ pain headache and generalised ache. O/E Soft lax abd no palpable bladder. mild tendeness at Left CVA. WBC 9.8 HB 12.2. BUN [address]-Scan Left Renal stone 2cm with Moderate Hydronephrosis, no stranding - Past Medical History ...: No - Smoking History Smoking history: Never smoked Have you smoked in the past 12 months: No Home Medications - Allergies Allergies/Adverse Reactions: Allergies Allergy/AdvReac Type Severity Reaction Status Date / Time Penicillins Allergy Verified 01/31/20 19:27 - Home Medications Home Medications: Ambulatory Orders Ondansetron [Zofran -] 8 mg PO TID #15 tablet 01/27/20 Oxycodone HCl/Acetaminophen [Percocet 5-325 mg Tablet] 1 - 2 tab PO Q4H #20 tablet MDD 8 01/27/20 Acetaminophen [Tylenol -] 1,000 mg PO ASDIR 01/31/20 Levofloxacin [Levaquin] 750 mg PO DAILY #10 tablet 01/31/20 Physical Exam Vital Signs: Vital Signs Temperature 100.9 F H 01/31/20 22:00 Pulse Rate 88 01/31/20 22:00 Respiratory Rate 18 01/31/20 22:00 Blood Pressure 100/53 L 01/31/20 22:00 O2 Sat by Pulse Oximetry (%) 96 01/31/20 22:00 Labs: CBC, BMP 01/31/20 19:52 01/31/20 19:37 Assessment/Plan UTI Left Renal stone and hydronephrosis Plan: IV abx Renal and pelvic U/S increase fluid intake Renal diet continue IV abx Will schedule her for Laser and jj stent insertion
[2020-02-01] MEDS ORDERED: AZTREONAM 1 GM VIAL (RESTRICTED TO ID) ONE ×3 (00:54→17:55)
[2020-02-01] MEDS: AZTREONAM 1 GM in DEXTROSE 5%-WATER - 50 ML IVPB SCH ×3 (01:21→18:07)
[2020-02-01] MEDS: ACETAMINOPHEN 1000 MG/100 ML VIAL (NON FORMULARY) IVPB PRN ×3 (05:30→19:55)
[2020-02-01 08:37] LABS: BASO % 0.2 % (0-2.0); EOS % 0.2 % (0-4.5); HEMATOCRIT 34.7 % (32.4-45.2); HEMOGLOBIN 11.7 GM/dl (10.7-15.3); LYMPH % 4.2 % (8-40); MCH 26.6 pg (25.7-33.7); MCHC 33.6 g/dl (32.0-36.0); MEAN PLT VOLUME 9.1 fl (7.5-11.1); MONO % 3.9 % (3.8-10.2); NEUT % 91.5 % (42.8-82.8); PLATELET COUNT 242 K/MM3 (134-434); RBC 4.39 M/mm3 (3.60-5.2); RDW 12.2 % (11.6-15.6); WHITE BLOOD COUNT 8.4 K/mm3 (4.0-10.8)
[2020-02-01 08:43] LABS: ALBUMIN 2.9 g/dl (3.4-5.0); BILIRUBIN,TOTAL 0.7 mg/dl (0.2-1); CREATININE 1.2 mg/dl (0.55-1.3); POTASSIUM 4.2 mmol/L (3.5-5.1); TOT PROT 5.7 g/dl (6.4-8.2)
[2020-02-01] MEDS ORDERED: DEXTROSE 5%-WATER - 50 ML IVPB ONE ×2 (09:24→17:56)
--- NOTE | 2020-02-01 09:35 | PN ---
Physical Exam: SUBJECTIVE: Patient seen and examined 02/01/20: Pt admitted yesterday for sepsis due to left renal stone, urosepsis. Fever this am of 103. States her pain in the left flank region much improved, no urinary discomfort, Denies any hematuria. Denies any cp, sob, n/v OBJECTIVE: Vital Signs Period Temp Pulse Resp BP Sys/Torres Pulse Ox Last 24 Hr 99 F-103.1 F 88-102 18-20 100-128/53-67 95-99 GENERAL: The patient is awake, alert, and fully oriented, in no acute distress. HEAD: Normal with no signs of trauma. EYES: extraocular movements intact, sclera anicteric, conjunctiva clear. No ptosis. ENT: Ears normal, nares patent, oropharynx clear without exudates, moist mucous membranes. NECK: Trachea midline, full range of motion, supple. LUNGS: Breath sounds equal, clear to auscultation bilaterally, no wheezes, no crackles, no accessory muscle use. HEART: Regular rate and rhythm, S1, S2 without murmur, rub or gallop. ABDOMEN: Soft, nontender, nondistended, normoactive bowel sounds, no guarding, no rebound, no hepatosplenomegaly, no masses. CUrerntly no left flank tenderness EXTREMITIES: 2+ pulses, warm, well-perfused, no edema. NEUROLOGICAL: Cranial nerves II through XII grossly intact. Normal speech, gait not observed. PSYCH: Normal mood, normal affect. SKIN: Warm, dry, normal turgor, no rashes or lesions noted Laboratory Results - last 24 hr 01/31/20 01/31/20 01/31/20 19:37 19:45 19:52 WBC 9.8 RBC 4.52 Hgb 12.2 Hct 36.3 MCV 80.4 MCH 27.1 MCHC 33.7 RDW 12.4 Plt Count 265 MPV 8.4 Absolute Neuts (auto) 9.2 Neutrophils % 92.7 H Lymphocytes % 3.5 L Monocytes % 2.4 L Eosinophils % 0.4 Basophils % 1.0 PT with INR INR PTT (Actin FS) Sodium 135 L Potassium 4.0 Chloride 98 Carbon Dioxide 23 Anion Gap 14 BUN 20.0 H Creatinine 1.3 Est GFR (CKD-EPI)AfAm 50.21 Est GFR (CKD-EPI)NonAf 43.32 Random Glucose 130 H Lactic Acid Calcium 8.5 Total Bilirubin 0.7 AST 54 H ALT 66 H Alkaline Phosphatase 95 Total Protein 6.1 L Albumin 3.2 L Urine Color Yellow Urine Appearance Slightly Urine pH 5.5 Urine Protein 3+ H Urine Glucose (UA) Negative Urine Ketones Trace Urine Blood 3+ H Urine Nitrite Negative Urine Bilirubin 1+ H Urine Urobilinogen 0.2 Ur Leukocyte Esterase Negative Urine RBC 40-60 Urine WBC 10-20 Ur Transition Epith Cell Few Urine Bacteria Few Blood Type Antibody Screen 01/31/20 01/31/20 01/31/20 19:52 20:38 20:55 WBC RBC Hgb Hct MCV MCH MCHC RDW Plt Count MPV Absolute Neuts (auto) Neutrophils % Lymphocytes % Monocytes % Eosinophils % Basophils % PT with INR 14.9 H INR 1.34 H PTT (Actin FS) 20.3 L Sodium Potassium Chloride Carbon Dioxide Anion Gap BUN Creatinine Est GFR (CKD-EPI)AfAm Est GFR (CKD-EPI)NonAf Random Glucose Lactic Acid 2.5 H* Calcium Total Bilirubin AST ALT Alkaline Phosphatase Total Protein Albumin Urine Color Urine Appearance Urine pH Urine Protein Urine Glucose (UA) Urine Ketones Urine Blood Urine Nitrite Urine Bilirubin Urine Urobilinogen Ur Leukocyte Esterase Urine RBC Urine WBC Ur Transition Epith Cell Urine Bacteria Blood Type O POSITIVE Antibody Screen Negative 01/31/20 01/31/20 02/01/20 21:01 23:59 06:00 WBC RBC Hgb Hct MCV MCH MCHC RDW Plt Count MPV Absolute Neuts (auto) Neutrophils % Lymphocytes % Monocytes % Eosinophils % Basophils % PT with INR INR PTT (Actin FS) Sodium 137 Potassium 4.2 Chloride 104 Carbon Dioxide 19 L Anion Gap 14 BUN 17.0 Creatinine 1.2 Est GFR (CKD-EPI)AfAm 55.31 Est GFR (CKD-EPI)NonAf 47.72 Random Glucose 136 H Lactic Acid 1.2 Calcium 8.0 L Total Bilirubin 0.7 AST 54 H ALT 67 H Alkaline Phosphatase 91 Total Protein 5.7 L Albumin 2.9 L Urine Color Urine Appearance Urine pH Urine Protein Urine Glucose (UA) Urine Ketones Urine Blood Urine Nitrite Urine Bilirubin Urine Urobilinogen Ur Leukocyte Esterase Urine RBC Urine WBC Ur Transition Epith Cell Urine Bacteria Blood Type O POSITIVE Antibody Screen 02/01/20 08:19 WBC 8.4 RBC 4.39 Hgb 11.7 Hct 34.7 MCV 79.0 L MCH 26.6 MCHC 33.6 RDW 12.2 Plt Count 242 MPV 9.1 Absolute Neuts (auto) 7.7 Neutrophils % 91.5 H Lymphocytes % 4.2 L Monocytes % 3.9 Eosinophils % 0.2 Basophils % 0.2 PT with INR INR PTT (Actin FS) Sodium Potassium Chloride Carbon Dioxide Anion Gap BUN Creatinine Est GFR (CKD-EPI)AfAm Est GFR (CKD-EPI)NonAf Random Glucose Lactic Acid Calcium Total Bilirubin AST ALT Alkaline Phosphatase Total Protein Albumin Urine Color Urine Appearance Urine pH Urine Protein Urine Glucose (UA) Urine Ketones Urine Blood Urine Nitrite Urine Bilirubin Urine Urobilinogen Ur Leukocyte Esterase Urine RBC Urine WBC Ur Transition Epith Cell Urine Bacteria Blood Type Antibody Screen Active Medications Generic Name Dose Route Start Last Admin Trade Name Freq PRN Reason Stop Dose Admin Acetaminophen 1,000 mg 02/01/20 02:00 02/01/20 05:30 Ofirmev Injection - IVPB 1,000 mg Q6H PRN Administration FEVER Sodium Chloride 1,000 mls @ 75 mls/hr 01/31/20 22:00 01/31/20 23:00 Normal Saline - IV 75 mls/hr ASDIR KAREN Administration Aztreonam 1 gm/ Dextrose 50 mls @ 100 mls/hr 02/02/20 02:00 IVPB Q8H-IV KAREN Protocol Aztreonam 1 gm/ Dextrose 50 mls @ 100 mls/hr 02/01/20 02:00 02/01/20 01:21 IVPB 02/01/20 18:29 100 mls/hr Q8H-IV KAREN Administration Protocol ASSESSMENT/PLAN: 64 y/o female with no known med hx admitted with left hydronephrosis and sepsis of urinary origin due to left ureteral renal stone - Problem (1) Sepsis Assessment/Plan: Likely secondary to UTI vs Left Renal Stone with Hydronephrosis Failed Outpatient Therapy (Levaquin) no leukocytosis Blood Cultures-pending Urine Culture 01/26- Proteus Mirabilis - likely a staghorn calculus Repeat Urine Culture-pending NS bolus, Ceftriaxone given in ED Cont Aztreonam (pcn allergy - hives) lacitc improved, cont ivf, pain control Chest Xray image reviewed no hypotension Code(s): A41.9 - SEPSIS, UNSPECIFIED ORGANISM (2) UTI (urinary tract infection) Assessment/Plan: will treat for Complicated UTI see above Code(s): N39.0 - URINARY TRACT INFECTION, SITE NOT SPECIFIED (3) Ureterolithiasis Assessment/Plan: Reviewed CTAP from 01/26, 01/29 Appreciate Urology Consult Renal and Pelvic Us today possible renal stent plans depensing on sono results Morphine Sulfate prn pain control Code(s): N20.1 - CALCULUS OF URETER (4) Pyelonephritis of left kidney Assessment/Plan: see above Continue ABX IVF Code(s): N12 - TUBULO-INTERSTITIAL NEPHRITIS, NOT SPCF ACUTE OR CHRONIC (5) LAINE (acute kidney injury) Assessment/Plan: Likely due to Ureteralithiasis with Hydronephrosis Cr 1.3 (baseline 0.7-1.1) Continue IVF Monitor CMP - cr about same, may need stent Code(s): N17.9 - ACUTE KIDNEY FAILURE, UNSPECIFIED (6) Encounter for screening laboratory testing for COVID-19 virus Assessment/Plan: low risk Covid PCR-pending Isolation Precautions Code(s): Z11.59 - ENCOUNTER FOR SCREENING FOR OTHER VIRAL DISEASES Problem List - Problems (1) Kidney stone on left side Code(s): N20.0 - CALCULUS OF KIDNEY (2) Renal colic on left side Code(s): N23 - UNSPECIFIED RENAL COLIC (3) LAINE (acute kidney injury) Code(s): N17.9 - ACUTE KIDNEY FAILURE, UNSPECIFIED Visit type - Emergency Visit Emergency Visit: Yes ED Registration Date: 01/31/20 Care time: The patient presented to the Emergency Department on the above date and was hospitalized for further evaluation of their emergent condition. - New Patient This patient is new to me today: Yes Date on this admission: 02/01/20 - Critical Care Critical Care patient: No
--- NOTE | 2020-02-01 16:09 | CON.ID ---
Consult - History of Present Illness History of Present Illness: 64 y.o. female with PSH of appendectomy/cholecystectomy, urethral sling/mesh presents with c/o fever, trembling hands and rigors with LUQ abd pain and epi sode of vomiting. She was originally seen in the ER on 01/27/20 and 01/30/20 for fever/Lt flank pain. CT scan revealed Lt renal stone with hydronephrosis and pt was d/c'd home on PO antibiotics.. Urine cx + proteus mirabilis. She returns now with worsening symptoms. In the ER noted to be tachycardic with temp of 103.1F, lactic acid 2.5. She has been started on IV antibiotics and Urology consulted. Pt has been persistently febrile. This am temp 103F. today she states with pain meds she feels better. Denies currently flank pain/dysuria/nausea or vomiting. - History Source History Provided By: Patient, Medical Record Limitations to Obtaining History: No Limitations - Past Medical History ...: No - Past Surgical History Past Surgical History: Yes: Appendectomy, Cholecystectomy - Smoking History Smoking history: Never smoked Have you smoked in the past 12 months: No Home Medications - Allergies Allergies/Adverse Reactions: Allergies Allergy/AdvReac Type Severity Reaction Status Date / Time Penicillins Allergy Verified 01/31/20 19:27 - Home Medications Home Medications: Ambulatory Orders Ondansetron [Zofran -] 8 mg PO TID #15 tablet 01/27/20 Oxycodone HCl/Acetaminophen [Percocet 5-325 mg Tablet] 1 - 2 tab PO Q4H #20 tablet MDD 8 01/27/20 Acetaminophen [Tylenol -] 1,000 mg PO ASDIR 01/31/20 Levofloxacin [Levaquin] 750 mg PO DAILY #10 tablet 01/31/20 Review of Systems - Review of Systems Constitutional: reports: Fever Eyes: reports: No Symptoms HENT: reports: No Symptoms Neck: reports: No Symptoms Cardiovascular: reports: No Symptoms Respiratory: reports: No Symptoms Gastrointestinal: reports: No Symptoms Genitourinary: reports: No Symptoms Musculoskeletal: reports: No Symptoms Integumentary: reports: No Symptoms Neurological: reports: No Symptoms Endocrine: reports: No Symptoms Hematology/Lymphatic: reports: No Symptoms Psychiatric: reports: No Symptoms Physical Exam Vital Signs: Vital Signs Temperature 103.3 F H 02/01/20 14:13 Pulse Rate 99 H 02/01/20 14:13 Respiratory Rate 18 02/01/20 14:13 Blood Pressure 107/57 L 02/01/20 14:13 O2 Sat by Pulse Oximetry (%) 96 02/01/20 14:13 Constitutional: Yes: No Distress, Calm Eyes: Yes: Conjunctiva Clear, EOM Intact HENT: Yes: Atraumatic, Normocephalic Cardiovascular: Yes: Tachycardia Respiratory: Yes: CTA Bilaterally Gastrointestinal: Yes: Normal Bowel Sounds, Soft Renal/: Yes: WNL Musculoskeletal: Yes: WNL Extremities: Yes: WNL Edema: No Integumentary: Yes: WNL Neurological: Yes: Alert, Oriented Labs: CBC, BMP 02/01/20 08:19 02/01/20 06:00 Laboratory Tests 01/31/20 01/31/20 01/31/20 19:37 19:45 19:52 WBC 9.8 RBC 4.52 Hgb 12.2 Hct 36.3 MCV 80.4 MCH 27.1 MCHC 33.7 RDW 12.4 Plt Count 265 MPV 8.4 Absolute Neuts (auto) 9.2 Neutrophils % 92.7 H Lymphocytes % 3.5 L Monocytes % 2.4 L Eosinophils % 0.4 Basophils % 1.0 PT with INR INR PTT (Actin FS) Sodium 135 L Potassium 4.0 Chloride 98 Carbon Dioxide 23 Anion Gap 14 BUN 20.0 H Creatinine 1.3 Est GFR (CKD-EPI)AfAm 50.21 Est GFR (CKD-EPI)NonAf 43.32 Random Glucose 130 H Lactic Acid Calcium 8.5 Total Bilirubin 0.7 AST 54 H ALT 66 H Alkaline Phosphatase 95 Total Protein 6.1 L Albumin 3.2 L Urine Color Yellow Urine Appearance Slightly Urine pH 5.5 Urine Protein 3+ H Urine Glucose (UA) Negative Urine Ketones Trace Urine Blood 3+ H Urine Nitrite Negative Urine Bilirubin 1+ H Urine Urobilinogen 0.2 Ur Leukocyte Esterase Negative Urine RBC 40-60 Urine WBC 10-20 Ur Transition Epith Cell Few Urine Bacteria Few Blood Type Antibody Screen 01/31/20 01/31/20 01/31/20 19:52 20:38 20:55 WBC RBC Hgb Hct MCV MCH MCHC RDW Plt Count MPV Absolute Neuts (auto) Neutrophils % Lymphocytes % Monocytes % Eosinophils % Basophils % PT with INR 14.9 H INR 1.34 H PTT (Actin FS) 20.3 L Sodium Potassium Chloride Carbon Dioxide Anion Gap BUN Creatinine Est GFR (CKD-EPI)AfAm Est GFR (CKD-EPI)NonAf Random Glucose Lactic Acid 2.5 H* Calcium Total Bilirubin AST ALT Alkaline Phosphatase Total Protein Albumin Urine Color Urine Appearance Urine pH Urine Protein Urine Glucose (UA) Urine Ketones Urine Blood Urine Nitrite Urine Bilirubin Urine Urobilinogen Ur Leukocyte Esterase Urine RBC Urine WBC Ur Transition Epith Cell Urine Bacteria Blood Type O POSITIVE Antibody Screen Negative 01/31/20 01/31/20 02/01/20 21:01 23:59 06:00 WBC RBC Hgb Hct MCV MCH MCHC RDW Plt Count MPV Absolute Neuts (auto) Neutrophils % Lymphocytes % Monocytes % Eosinophils % Basophils % PT with INR INR PTT (Actin FS) Sodium 137 Potassium 4.2 Chloride 104 Carbon Dioxide 19 L Anion Gap 14 BUN 17.0 Creatinine 1.2 Est GFR (CKD-EPI)AfAm 55.31 Est GFR (CKD-EPI)NonAf 47.72 Random Glucose 136 H Lactic Acid 1.2 Calcium 8.0 L Total Bilirubin 0.7 AST 54 H ALT 67 H Alkaline Phosphatase 91 Total Protein 5.7 L Albumin 2.9 L Urine Color Urine Appearance Urine pH Urine Protein Urine Glucose (UA) Urine Ketones Urine Blood Urine Nitrite Urine Bilirubin Urine Urobilinogen Ur Leukocyte Esterase Urine RBC Urine WBC Ur Transition Epith Cell Urine Bacteria Blood Type O POSITIVE Antibody Screen 02/01/20 08:19 WBC 8.4 RBC 4.39 Hgb 11.7 Hct 34.7 MCV 79.0 L MCH 26.6 MCHC 33.6 RDW 12.2 Plt Count 242 MPV 9.1 Absolute Neuts (auto) 7.7 Neutrophils % 91.5 H Lymphocytes % 4.2 L Monocytes % 3.9 Eosinophils % 0.2 Basophils % 0.2 PT with INR INR PTT (Actin FS) Sodium Potassium Chloride Carbon Dioxide Anion Gap BUN Creatinine Est GFR (CKD-EPI)AfAm Est GFR (CKD-EPI)NonAf Random Glucose Lactic Acid Calcium Total Bilirubin AST ALT Alkaline Phosphatase Total Protein Albumin Urine Color Urine Appearance Urine pH Urine Protein Urine Glucose (UA) Urine Ketones Urine Blood Urine Nitrite Urine Bilirubin Urine Urobilinogen Ur Leukocyte Esterase Urine RBC Urine WBC Ur Transition Epith Cell Urine Bacteria Blood Type Antibody Screen 01/27/20 Urine culture: Proteus m. 01/30/20 Urine culture no growth 01/30/20 Blood culture no growth 24h Imaging - Results Cat Scan: Report Reviewed Problem List - Problems (1) LAINE (acute kidney injury) Code(s): N17.9 - ACUTE KIDNEY FAILURE, UNSPECIFIED (2) Pyelonephritis of left kidney Code(s): N12 - TUBULO-INTERSTITIAL NEPHRITIS, NOT SPCF ACUTE OR CHRONIC (3) Sepsis Code(s): A41.9 - SEPSIS, UNSPECIFIED ORGANISM (4) Ureterolithiasis Code(s): N20.1 - CALCULUS OF URETER (5) Kidney stone on left side Code(s): N20.0 - CALCULUS OF KIDNEY Assessment/Plan 64 y.o. female with fever, LUQ abd/Lt flank pain Sepsis Acute pylenephritis Obstructing renal calculi with hydronephrosis Fever -- Aztreonam for now. Persistent fever likely due to urinary obstructing stone. -- Urology follow up for possible stent placement -- continue monitor vitals/temp trend -- follow up Urine/Blood cultures Will follow Thank you
[2020-02-02] MEDS ORDERED: DEXTROSE 5%-WATER - 50 ML IVPB ONE ×2 (00:26→09:09)
[2020-02-02] MEDS ORDERED: AZTREONAM 1 GM VIAL (RESTRICTED TO ID) ONE ×2 (00:26→09:09)
[2020-02-02] MEDS: AZTREONAM 1 GM in DEXTROSE 5%-WATER - 50 ML IVPB SCH ×2 (01:06→09:17)
[2020-02-02] MEDS: SODIUM CHLORIDE 1,000 ML IV SCH (01:06)
[2020-02-02] MEDS: ACETAMINOPHEN 1000 MG/100 ML VIAL (NON FORMULARY) IVPB PRN (06:15)
--- NOTE | 2020-02-02 07:05 | PN ---
Physical Exam: SUBJECTIVE: Patient seen and examined at bedside. Feels better than she did yesterday, had an episode of chills early this morning. Denies pain, dysuria, hematuria. Feels a little lightheaded when she gets up to go to the bathroom, but walked with PT this morning without difficulty. Works as a dental hygienist. OBJECTIVE: Vital Signs Period Temp Pulse Resp BP Sys/Torres Pulse Ox Last 24 Hr 98.8 F-103.3 F 75-99 18-18 101-112/49-57 95-98 GENERAL: The patient is awake, alert, and fully oriented, in no acute distress. LUNGS: Breath sounds equal, clear to auscultation bilaterally, no wheezes, no crackles, no accessory muscle use. HEART: Regular rate and rhythm, S1, S2 ABDOMEN: Soft, nontender, nondistended, normoactive bowel sounds, no guarding, no rebound, no hepatosplenomegaly, no masses; no CVA tenderness EXTREMITIES: 2+ pulses, warm, well-perfused, no edema. NEUROLOGICAL: Cranial nerves II through XII grossly intact. Normal speech, gait not observed. PSYCH: Normal mood, normal affect. SKIN: Warm, dry, normal turgor Laboratory Results - last 24 hr 02/01/20 02/01/20 06:00 08:19 WBC 8.4 RBC 4.39 Hgb 11.7 Hct 34.7 MCV 79.0 L MCH 26.6 MCHC 33.6 RDW 12.2 Plt Count 242 MPV 9.1 Absolute Neuts (auto) 7.7 Neutrophils % 91.5 H Lymphocytes % 4.2 L Monocytes % 3.9 Eosinophils % 0.2 Basophils % 0.2 Sodium 137 Potassium 4.2 Chloride 104 Carbon Dioxide 19 L Anion Gap 14 BUN 17.0 Creatinine 1.2 Est GFR (CKD-EPI)AfAm 55.31 Est GFR (CKD-EPI)NonAf 47.72 Random Glucose 136 H Calcium 8.0 L Total Bilirubin 0.7 AST 54 H ALT 67 H Alkaline Phosphatase 91 Total Protein 5.7 L Albumin 2.9 L Current Medications Generic Name Dose Route Start Last Admin Trade Name Freq PRN Reason Stop Dose Admin Heparin Sodium (Porcine) 5,000 unit 02/02/20 09:00 02/02/20 09:16 Heparin - SQ 5,000 unit TID KAREN Administration Aztreonam 1 gm/ Dextrose 50 mls @ 100 mls/hr 02/02/20 02:00 02/02/20 09:17 IVPB 100 mls/hr Q8H-IV KAREN Administration Protocol Sodium Chloride 1,000 mls @ 125 mls/hr 02/02/20 12:28 Normal Saline - IV ASDIR KAREN Imaging 01/29 CT spiral: 2 x 1.3 x 0.7cm calculus within left renal pelvis and partially extending into a lower pole infundibulum, mild to moderate hyrdronephrosis 01/31 US renal: moderate left hydro secondary to 1.8 obstructing calculus of left renal pelvis 01/30 CXR: unremarkable ASSESSMENT/PLAN: 64 year-old female with no significant PMH, admitted for severe sepsis likely secondary to an infected obstructing renal calculi. Severe sepsis likely secondary to an infected obstructing renal calculi --spiked to 103.3 this am with chills, no leukocytosis --BP soft, increase IV fluids to 125mL/hr --continue aztreonam --advised the plan is to take patient to OR tomorrow for stent insertion COVID 01/30 swab pending FEN Fluids: NS@125mL/hr Electrolytes: replete as indicated Nutrition: renal diet Physical therapy DVT prophylaxis: subq heparin Dispo: continues to require inpatient care. Full code. Visit type - Emergency Visit Emergency Visit: Yes ED Registration Date: 01/31/20 Care time: The patient presented to the Emergency Department on the above date and was hospitalized for further evaluation of their emergent condition. - New Patient This patient is new to me today: Yes Date on this admission: 02/02/20 - Critical Care Critical Care patient: No
[2020-02-02 08:05] LABS: CALCIUM 7.5 mg/dl (8.5-10); CREATININE 1.3 mg/dl (0.55-1.3); POTASSIUM 3.6 mmol/L (3.5-5.1)
[2020-02-02 08:07] LABS: BASO % 0.2 % (0-2.0); EOS % 0.6 % (0-4.5); HEMATOCRIT 29.4 % (32.4-45.2); HEMOGLOBIN 10.1 GM/dl (10.7-15.3); LYMPH % 6.7 % (8-40); MCH 27.5 pg (25.7-33.7); MCHC 34.5 g/dl (32.0-36.0); MEAN CELL VOLUME 79.8 fl (80-96); MEAN PLT VOLUME 9.4 fl (7.5-11.1); MONO % 3.4 % (3.8-10.2); NEUT % 89.1 % (42.8-82.8); PLATELET COUNT 189 K/MM3 (134-434); RBC 3.69 M/mm3 (3.60-5.2); RDW 12.6 % (11.6-15.6); WHITE BLOOD COUNT 7.8 K/mm3 (4.0-10.8)
[2020-02-02] MEDS: HEPARIN NA (PORCINE) 5,000 UNITS/ML 1ML VIAL SQ SCH ×3 (09:16→22:30)
--- NOTE | 2020-02-02 09:29 | EKG ---
Test Reason : Blood Pressure : / mmHG Vent. Rate : 096 BPM Atrial Rate : 096 BPM P-R Int : 122 ms QRS Dur : 076 ms QT Int : 350 ms P-R-T Axes : 019 001 -19 degrees QTc Int : 442 ms NORMAL SINUS RHYTHM NONSPECIFIC ST AND T WAVE ABNORMALITY ABNORMAL ECG NO PREVIOUS ECGS AVAILABLE Confirmed by Seth Cleveland ([id number]) on 02/02/2020 9:29:07 AM Referred By: EDWARD JEROME Confirmed By:Seth Cleveland
[2020-02-02] MEDS ORDERED: ACETAMINOPHEN 325 MG TABLET (FP) ONE ×2 (11:45→14:09)
[2020-02-02] MEDS ORDERED: ACETAMINOPHEN 325 MG TABLET (FP) PO ONE (12:00)
[2020-02-02] MEDS ORDERED: SODIUM CHLORIDE 1,000 ML IV SCH (12:28)
[2020-02-02 12:57] LABS: BASO % 0.2 % (0-2.0); EOS % 0.4 % (0-4.5); HEMOGLOBIN 10.9 GM/dl (10.7-15.3); LYMPH % 8.2 % (8-40); MCH 26.4 pg (25.7-33.7); MEAN CELL VOLUME 80.2 fl (80-96); MEAN PLT VOLUME 9.6 fl (7.5-11.1); MONO % 3.1 % (3.8-10.2); NEUT % 88.1 % (42.8-82.8); PLATELET COUNT 213 K/MM3 (134-434); RBC 4.12 M/mm3 (3.60-5.2); RDW 12.6 % (11.6-15.6); WHITE BLOOD COUNT 8.2 K/mm3 (4.0-10.8)
[2020-02-02 13:11] LABS: ALBUMIN 2.7 g/dl (3.4-5.0); BILIRUBIN,TOTAL 0.8 mg/dl (0.2-1); CREATININE 1.3 mg/dl (0.55-1.3); MAGNESIUM 2.1 mg/dL (1.8-2.4); TOT PROT 5.5 g/dl (6.4-8.2)
--- NOTE | 2020-02-02 13:19 | HOSP ---
Subjective - Review of Symptoms Events since last encounter: Summoned to patient's room by RN, patient supine in bed with rigors. Initial vitals T 100.0, BP 200/90, p120s, RR 42, SpO2 89% on room air. Tylenol given. About 20 minutes later, rigors resolved T102.1, BP 108/51 (65), RR 24, SpO2 100% on 4L. Episode of vomiting, ~250ccs (breakfast food) Physical exam: A&Ox3 Lungs: CTA CV: S1, S2, rrr Abd: soft, not tender, not distended As orders were being entered for lab work and imaging, serology came back COVID positive. 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 Has been symptomatic since 01/27/20 when she first came to [facility]. Plan cbc, cmp, Mg, Phos, LDH, crp, ESR, ferritin, d-dimer, lactic acid CXR ECG cruz, strict I&Os continue IV fluids, MAP>65 titrate O2 >95% discussed with Dr. Siu, will transfer to telemetry Physical Examination Vital Signs: Vital Signs Temperature 100.0 F H 02/02/20 11:45 Pulse Rate 125 H 02/02/20 11:45 Respiratory Rate 22 H 02/02/20 11:45 Blood Pressure 145/125 H 02/02/20 11:45 O2 Sat by Pulse Oximetry (%) 90 L 02/02/20 11:45 Labs: CBC, BMP 02/02/20 12:20
--- NOTE | 2020-02-02 13:23 | EKG ---
Test Reason : Blood Pressure : / mmHG Vent. Rate : 092 BPM Atrial Rate : 092 BPM P-R Int : 126 ms QRS Dur : 082 ms QT Int : 354 ms P-R-T Axes : 029 -03 -27 degrees QTc Int : 437 ms NORMAL SINUS RHYTHM NONSPECIFIC T WAVE ABNORMALITY ABNORMAL ECG WHEN COMPARED WITH ECG OF 31-JAN-2020 19:43, NO SIGNIFICANT CHANGE WAS FOUND Confirmed by Seth Cleveland ([id number]) on 02/02/2020 1:23:13 PM Referred By: KIMBERLY BRUNER Confirmed By:Seth Cleveland
[2020-02-02] MEDS ORDERED: HEPARIN NA (PORCINE) 5,000 UNITS/ML 1ML VIAL SQ SCH (14:00)
[2020-02-02] MEDS ORDERED: SODIUM CHLORIDE 1,000 ML IV STA (14:28)
[2020-02-02] MEDS ORDERED: SODIUM CHLORIDE 500 ML IV STA (14:35)
--- NOTE | 2020-02-02 15:42 | PN ---
Progress Note, Physician History of Present Illness: events noted patient now septic hypotensive transfered to icu mentally still ok spiking fevers - Current Medication List Current Medications: Active Medications Acetaminophen (Ofirmev Injection -) 1,000 mg IVPB Q6H PRN PRN Reason: FEVER Stop: 02/03/20 14:11 Heparin Sodium (Porcine) (Heparin -) 5,000 unit SQ TID KAREN Last Admin: 02/02/20 14:57 Dose: 5,000 unit Documented by: Aztreonam 1 gm/ Dextrose 50 mls @ 100 mls/hr IVPB Q8H-IV KAREN; Protocol Last Admin: 02/02/20 09:17 Dose: 100 mls/hr Documented by: Sodium Chloride (Normal Saline -) 1,000 mls @ 125 mls/hr IV ASDIR KAREN Last Admin: 02/02/20 12:25 Dose: 125 mls/hr Documented by: - Objective Vital Signs: Vital Signs Temperature 100.2 F H 02/02/20 15:19 Pulse Rate 79 02/02/20 15:19 Respiratory Rate 20 02/02/20 15:19 Blood Pressure 101/55 L 02/02/20 15:19 O2 Sat by Pulse Oximetry (%) 100 02/02/20 15:19 Constitutional: Yes: Calm, Mild Distress Cardiovascular: Yes: S1, S2 Respiratory: Yes: Regular, CTA Bilaterally Gastrointestinal: Yes: Normal Bowel Sounds, Soft Genitourinary: Yes: CVA Tenderness - Left Musculoskeletal: Yes: WNL Extremities: Yes: WNL Neurological: Yes: Alert, Oriented Psychiatric: Yes: Alert, Oriented Labs: CBC, BMP 02/02/20 12:20 02/02/20 12:53 INR, PTT INR 1.34 (0.82-1.09) H 01/31/20 20:55 Assessment/Plan Problem List - Problems (1) LAINE (acute kidney injury) Code(s): N17.9 - ACUTE KIDNEY FAILURE, UNSPECIFIED (2) Pyelonephritis of left kidney Code(s): N12 - TUBULO-INTERSTITIAL NEPHRITIS, NOT SPCF ACUTE OR CHRONIC (3) Sepsis Code(s): A41.9 - SEPSIS, UNSPECIFIED ORGANISM (4) Ureterolithiasis Code(s): N20.1 - CALCULUS OF URETER (5) Kidney stone on left side Code(s): N20.0 - CALCULUS OF KIDNEY 6 sepsis Assessment/Plan 64 y.o. female with fever, LUQ abd/Lt flank pain Sepsis Acute pylenephritis Obstructing renal calculi with hydronephrosis Fever covid plan monitor closely pressors if required rest as per icu close watch abx will change to meropenam monitor wbc need decompressing of the kidney monitor fever cc 40 min
[2020-02-02 17:31] LABS: PLATELET ESTIMATE ADEQUATE
[2020-02-02] MEDS ORDERED: ACETAMINOPHEN 1000 MG/100 ML VIAL (NON FORMULARY) IVPB PRN (18:00)
[2020-02-02] MEDS ORDERED: DEXTROSE 5%-WATER 100 ML IVPB ONE (18:42)
[2020-02-02] MEDS ORDERED: MEROPENEM 1 GM VIAL (RESTRICTED TO ID) IVPB ONE (18:42)
[2020-02-02] MEDS: MEROPENEM 1 GM in DEXTROSE 5%-WATER 100 ML IVPB SCH (18:45)
[2020-02-02] MEDS ORDERED: MIDAZOLAM HCL 2 MG/2 ML SINGLE DOSE VIAL ONE (18:55)
[2020-02-02] MEDS ORDERED: morphine SULFATE 4 MG/ML VIAL ONE (19:05)
--- NOTE | 2020-02-02 20:41 | CONSULT ---
Consultation: REQUESTING PROVIDER: Wendie Heredia CONSULT REQUEST: We have been asked to medically evaluate this patient for sepsis 2/2 complicated UTI due to renal stone. HISTORY OF PRESENT ILLNESS: Pt is a 64 yo female with no significant past medical history who originally presented to the [place] ED for fevers 103.0 (Tmax), chills, worsening left upper quadrant pain with non-bloody, bilious emesis x 1. According to the pt, she was seen in the ED on 01/26 & 01/29 for fever and left flank pain, treated with IV ABx in the ED then discharged with Nitrofurantoin (01/26) and Levaquin (01/29) with no improvement. Pt was admitted on 01/30 for concern of sepsis 2/2 to complicated UTI d/t L sided renal stone. ID was consulted and she was started on IV aztreonam. Pt started becoming hypotensive and had a worsening lactate. She was then transferred to [facility] ICU; pt received IR guided nephrostomy tube placem ent prior to admission to the ICU. Pt reports associated subjective fevers, chills, and occasional mild left flank pain. Denies cough, SOB, dizziness, CP, palpitations, diarrhea, melena, hematochezia, dysuria. Patient denies sick contacts or recent travel. 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 PHYSICAL EXAMINATION Vital Signs - 24 hr 02/01/20 02/02/20 02/02/20 22:57 02:10 06:00 Temperature 100.2 F H 98.8 F 103.3 F H Pulse Rate 96 H 90 Pulse Rate [ Right Upper Arm ] Respiratory 18 18 Rate Respiratory Rate [Right Upper Arm] Blood Pressure 102/53 L 101/49 L Blood Pressure [Right Upper Arm] O2 Sat by Pulse 95 98 Oximetry (%) O2 Sat by Pulse Oximetry (%) [ Right Upper Arm ] 02/02/20 02/02/20 02/02/20 07:14 08:00 11:40 Temperature 99.5 F 100.8 F H 100.0 F H Pulse Rate 84 126 H Pulse Rate [ Right Upper Arm ] Respiratory 20 42 H Rate Respiratory Rate [Right Upper Arm] Blood Pressure 96/50 L 200/90 H Blood Pressure [Right Upper Arm] O2 Sat by Pulse 89 L Oximetry (%) O2 Sat by Pulse Oximetry (%) [ Right Upper Arm ] 02/02/20 02/02/20 02/02/20 11:45 12:05 12:40 Temperature 100.0 F H 102.3 F H Pulse Rate 125 H 94 H Pulse Rate [ Right Upper Arm ] Respiratory 22 H 18 Rate Respiratory Rate [Right Upper Arm] Blood Pressure 145/125 H 108/51 L Blood Pressure [Right Upper Arm] O2 Sat by Pulse 90 L 100 Oximetry (%) O2 Sat by Pulse Oximetry (%) [ Right Upper Arm ] 02/02/20 02/02/20 02/02/20 14:00 15:19 16:55 Temperature 103.0 F H 100.2 F H Pulse Rate 85 79 77 Pulse Rate [ Right Upper Arm ] Respiratory 18 20 18 Rate Respiratory Rate [Right Upper Arm] Blood Pressure 94/46 L 101/55 L 108/61 Blood Pressure [Right Upper Arm] O2 Sat by Pulse 100 100 100 Oximetry (%) O2 Sat by Pulse Oximetry (%) [ Right Upper Arm ] 02/02/20 02/02/20 17:00 18:00 Temperature 102 F H 102 F H Pulse Rate 78 94 H Pulse Rate [ 76 Right Upper Arm ] Respiratory 20 33 H Rate Respiratory 20 Rate [Right Upper Arm] Blood Pressure 113/63 142/75 Blood Pressure 111/65 [Right Upper Arm] O2 Sat by Pulse 100 100 Oximetry (%) O2 Sat by Pulse 100 Oximetry (%) [ Right Upper Arm ] GENERAL: Awake, alert, and fully oriented, in no acute distress. HEAD: Normal with no signs of trauma. EYES: Pupils equal, round and reactive to light, extraocular movements intact, sclera anicteric, conjunctiva clear. EARS, NOSE, THROAT: Oropharynx clear without exudates. Moist mucous membranes. NECK: Supple without lymphadenopathy or masses. LUNGS: Breath sounds equal, clear to auscultation bilaterally. No wheezes, and no crackles. No accessory muscle use. HEART: Regular rate and rhythm, normal S1 and S2 without murmur, rub or gallop. ABDOMEN: Soft, mild tenderness to palpation of left flank, not distended, normoactive bowel sounds, no guarding, no rebound, no masses. MUSCULOSKELETAL: Normal range of motion at all joints. No bony deformities or tenderness. No CVA tenderness. UPPER EXTREMITIES: 2+ pulses, warm, well-perfused. Cap refill <2 seconds. No peripheral edema. LOWER EXTREMITIES: 2+ pulses, warm, well-perfused. No peripheral edema. NEUROLOGICAL: Cranial nerves II-XII intact. Normal speech. Normal gait. SKIN: Warm, dry, normal turgor, no rashes or lesions noted; nephrostomy tube draining well; site is dry and intact. Laboratory Results - last 24 hr 01/31/20 01/31/20 02/02/20 19:52 21:00 07:03 WBC 7.8 RBC 3.69 Hgb 10.1 L Hct 29.4 L D MCV 79.8 L MCH 27.5 MCHC 34.5 RDW 12.6 Plt Count 189 MPV 9.4 Absolute Neuts (auto) 7.0 Neutrophils % Member Service Specialist 89.1 H Neutrophils % (Manual) 87.0 H Band Neutrophils % 7.0 Lymphocytes % Member Service Specialist 6.7 L Lymphocytes % (Manual) 4.0 L Monocytes % Member Service Specialist 3.4 L Monocytes % (Manual) 2 L Eosinophils % Member Service Specialist 0.6 Basophils % Member Service Specialist 0.2 Platelet Estimate Adequate ESR D-Dimer Sodium Potassium Chloride Carbon Dioxide Anion Gap BUN Creatinine Est GFR (CKD-EPI)AfAm Est GFR (CKD-EPI)NonAf Random Glucose Lactic Acid Calcium Phosphorus Magnesium Ferritin Total Bilirubin AST ALT Alkaline Phosphatase LD Total Creatine Kinase Creatine Kinase Index CK-MB (CK-2) Total Protein Albumin COVID-19 (RICKY) Detected H 02/02/20 02/02/20 02/02/20 07:03 07:03 07:03 WBC RBC Hgb Hct MCV MCH MCHC RDW Plt Count MPV Absolute Neuts (auto) Neutrophils % Neutrophils % (Manual) Band Neutrophils % Lymphocytes % Lymphocytes % (Manual) Monocytes % Monocytes % (Manual) Eosinophils % Basophils % Platelet Estimate ESR 57 H D-Dimer Sodium 133 L Potassium 3.6 Chloride 104 Carbon Dioxide 18 L Anion Gap 11 BUN 15.0 Creatinine 1.3 Est GFR (CKD-EPI)AfAm 50.21 Est GFR (CKD-EPI)NonAf 43.32 Random Glucose 126 H Lactic Acid Calcium 7.5 L Phosphorus Magnesium 2.0 Ferritin 884.8 H Total Bilirubin AST ALT Alkaline Phosphatase LD Total Creatine Kinase Creatine Kinase Index CK-MB (CK-2) Total Protein Albumin COVID-19 (RICKY) 02/02/20 02/02/20 02/02/20 07:03 12:20 12:53 WBC 8.2 RBC 4.12 Hgb 10.9 Hct 33.0 MCV 80.2 MCH 26.4 MCHC 33.0 RDW 12.6 Plt Count 213 MPV 9.6 Absolute Neuts (auto) 7.2 Neutrophils % 88.1 H Neutrophils % (Manual) Band Neutrophils % Lymphocytes % 8.2 Lymphocytes % (Manual) Monocytes % 3.1 L Monocytes % (Manual) Eosinophils % 0.4 Basophils % 0.2 Platelet Estimate ESR D-Dimer Sodium Potassium Chloride Carbon Dioxide Anion Gap BUN Creatinine Est GFR (CKD-EPI)AfAm Est GFR (CKD-EPI)NonAf Random Glucose Lactic Acid 4.8 H* Calcium Phosphorus Magnesium Ferritin Total Bilirubin AST ALT Alkaline Phosphatase LD Total Creatine Kinase 415 H Creatine Kinase Index 0.6 CK-MB (CK-2) 2.9 Total Protein Albumin COVID-19 (RICKY) 02/02/20 02/02/20 12:53 12:53 WBC RBC Hgb Hct MCV MCH MCHC RDW Plt Count MPV Absolute Neuts (auto) Neutrophils % Neutrophils % (Manual) Band Neutrophils % Lymphocytes % Lymphocytes % (Manual) Monocytes % Monocytes % (Manual) Eosinophils % Basophils % Platelet Estimate ESR D-Dimer 1564 H Sodium 135 L Potassium 4.0 Chloride 104 Carbon Dioxide 18 L Anion Gap 13 BUN 14.0 Creatinine 1.3 Est GFR (CKD-EPI)AfAm 50.21 Est GFR (CKD-EPI)NonAf 43.32 Random Glucose 114 H Lactic Acid Calcium 8.0 L Phosphorus 3.0 Magnesium 2.1 Ferritin Total Bilirubin 0.8 AST 90 H ALT 85 H Alkaline Phosphatase 102 D LD Total 285 H Creatine Kinase Creatine Kinase Index CK-MB (CK-2) Total Protein 5.5 L Albumin 2.7 L COVID-19 (RICKY) Active Medications Generic Name Dose Route Start Last Admin Trade Name Freq PRN Reason Stop Dose Admin Acetaminophen 1,000 mg 02/02/20 18:00 Ofirmev Injection - IVPB 02/03/20 14:11 Q6H PRN FEVER Heparin Sodium (Porcine) 5,000 unit 02/02/20 09:00 02/02/20 14:57 Heparin - SQ 5,000 unit TID KAREN Administration Sodium Chloride 1,000 mls @ 125 mls/hr 02/02/20 12:28 02/02/20 12:25 Normal Saline - IV 125 mls/hr ASDIR KAREN Administration Meropenem 1 gm/ Dextrose 100 mls @ 200 mls/hr 02/02/20 18:00 02/02/20 18:45 IVPB 200 mls/hr Q8H-IV KAREN Administration ASSESSMENT/PLAN: Pt is a 64 yo female with no significant past medical history being admitted to ICU for concern of septic shock 2/2 to acute complicated UTI due to 2 cm L sided obstructing stone at L renal pelvis (leading to hydronephrosis). Pt is POD #0 for IR guided nephrostomy tube placement. #Neuro awake, neurologically intact; no concerns at this time #CV undifferentiated shock - concern for septic shock 2/2 acute complicated UTI - currently received 2 L boluses of NS - consider levophed if necessary - maintain MAP > 65 #Pulm COVID + currently saturatin 100% of 4L NC; CXR without focal infiltrate - pt considering convalescent plasma - monitoring O2 saturation - CXR tomorrow - monitor inflammatory markers #ID acute complicated UTI 2/2 L sided obstructing stone (2 cm) POD #0; s/p nephrostomy tube placement by IR - IV meropenem; follow blood cx, urine cx (prior urine cx grew proteus) - ID recs appreciated - tylenol prn for fevers #Renal hydronephrosis 2/2 L sided obstructing stone (2 cm) cruz catheter and nephrostomy tube in place pt making urine #FEN F - fluids (received 2L of NS bolus; c/w aggressive hydration NS at 150) E - replete lytes prn N - renal diet LTD [facility] - 02/01 Dispo: We will continue to follow the patient in the ICU. Thank you for this consultative opportunity. Visit type - Emergency Visit Emergency Visit: Yes ED Registration Date: 01/31/20 Care time: The patient presented to the Emergency Department on the above date and was hospitalized for further evaluation of their emergent condition. - New Patient This patient is new to me today: Yes Date on this admission: 02/02/20 - Critical Care Critical Care patient: Yes Total Critical Care Time (in minutes): 38 Critical Care Statement: The care of this patient involved high complexity decision making to prevent further life threatening deterioration of the patient's condition and/or to evaluate & treat vital organ system(s) failure or risk of failure. ATTENDING PHYSICIAN STATEMENT I saw and evaluated the patient. I reviewed the resident's note and discussed the case with the resident. I agree with the resident's findings and plan as documented. SUBJECTIVE: OBJECTIVE: ASSESSMENT AND PLAN:
[2020-02-03] MEDS ORDERED: DEXTROSE 5%-WATER 100 ML IVPB ONE ×3 (03:09→16:54)
[2020-02-03] MEDS ORDERED: MEROPENEM 1 GM VIAL (RESTRICTED TO ID) IVPB ONE ×3 (03:09→16:54)
[2020-02-03] MEDS: MEROPENEM 1 GM in DEXTROSE 5%-WATER 100 ML IVPB SCH ×3 (03:34→17:24)
[2020-02-03 05:57] LABS: BASO % 0.3 % (0-2.0); HEMATOCRIT 28.8 % (32.4-45.2); HEMOGLOBIN 9.6 GM/dL (10.7-15.3); LYMPH % 9.7 % (8-40); MCH 27.1 pg (25.7-33.7); MCHC 33.2 g/dl (32.0-36.0); MEAN CELL VOLUME 81.7 fl (80-96); MEAN PLT VOLUME 9.1 fl (7.5-11.1); MONO % 9.5 % (3.8-10.2); NEUT % 79.5 % (42.8-82.8); PLATELET COUNT 163 K/MM3 (134-434); RBC 3.52 M/mm3 (3.60-5.2); RDW 13.8 % (11.6-15.6); WHITE BLOOD COUNT 8.4 K/mm3 (4.0-10.0)
[2020-02-03] MEDS: HEPARIN NA (PORCINE) 5,000 UNITS/ML 1ML VIAL SQ SCH (06:19)
[2020-02-03 06:37] LABS: BLOOD UREA NITROGEN 9.9 mg/dL (7-18); CALCIUM 7.5 mg/dL (8.5-10.1); CREATININE 0.6 mg/dL (0.55-1.3); PHOSPHOROUS 2.9 mg/dL (2.5-4.9); POTASSIUM 3.4 mmol/L (3.5-5.1); TOT PROT 4.9 g/dl (6.4-8.2)
[2020-02-03] MEDS ORDERED: SODIUM CHLORIDE 1,000 ML IV SCH (07:23)
[2020-02-03] MEDS ORDERED: ACETAMINOPHEN 1000 MG/100 ML VIAL (NON FORMULARY) IVPB PRN (07:23)
--- NOTE | 2020-02-03 07:26 | PN ---
Physical Exam: SUBJECTIVE: Patient seen and examined at bedside. Pt afebrile overnight. Reports mild headache and mild SOB. Pt oxygenating well on NC. Pt denies abdominal/flank pain, chills, nausea/vomiting, dysuria, hematuria, or other changes in urination. OBJECTIVE: Vital Signs Period Temp Pulse Resp BP Sys/Torres Pulse Ox Last 24 Hr 98.6 F-103.0 F 66-126 18-42 94-200/46-125 89-100 GENERAL: The patient is awake, alert, and fully oriented, in no acute distress. HEAD: Normal with no signs of trauma. EYES: PERRL, extraocular movements intact, conjunctiva clear. ENT: Oropharynx clear without exudates, moist mucous membranes. NECK: Trachea midline, neck supple, no LAD. LUNGS: Breath sounds equal, crackles appreciated bilateral; no wheezing; no accessory muscle use HEART: Regular rate and rhythm, S1, S2 without murmur, rub or gallop. ABDOMEN: Soft, nontender, nondistended, +BS in all 4 quadrants EXTREMITIES: 2+ pulses, warm, well-perfused, no edema. NEUROLOGICAL: AOx3; normal speech, gait not observed. SKIN: Warm, dry, normal turgor; nephrostomy tube draining well, site is dry and intact. Laboratory Results - last 24 hr 01/31/20 01/31/20 02/02/20 19:52 21:00 07:03 WBC 7.8 RBC 3.69 Hgb 10.1 L Hct 29.4 L D MCV 79.8 L MCH 27.5 MCHC 34.5 RDW 12.6 Plt Count 189 MPV 9.4 Absolute Neuts (auto) 7.0 Neutrophils % Inking Machine Tender 89.1 H Neutrophils % (Manual) 87.0 H Band Neutrophils % 7.0 Lymphocytes % Inking Machine Tender 6.7 L Lymphocytes % (Manual) 4.0 L Monocytes % Inking Machine Tender 3.4 L Monocytes % (Manual) 2 L Eosinophils % Inking Machine Tender 0.6 Basophils % Inking Machine Tender 0.2 Nucleated RBC % Platelet Estimate Adequate ESR D-Dimer Sodium Potassium Chloride Carbon Dioxide Anion Gap BUN Creatinine Est GFR (CKD-EPI)AfAm Est GFR (CKD-EPI)NonAf Random Glucose Lactic Acid Calcium Phosphorus Magnesium Ferritin Total Bilirubin AST ALT Alkaline Phosphatase LD Total Creatine Kinase Creatine Kinase Index CK-MB (CK-2) C-Reactive Protein Total Protein Albumin COVID-19 (RICKY) Detected H 02/02/20 02/02/20 02/02/20 07:03 07:03 07:03 WBC RBC Hgb Hct MCV MCH MCHC RDW Plt Count MPV Absolute Neuts (auto) Neutrophils % Neutrophils % (Manual) Band Neutrophils % Lymphocytes % Lymphocytes % (Manual) Monocytes % Monocytes % (Manual) Eosinophils % Basophils % Nucleated RBC % Platelet Estimate ESR 57 H D-Dimer Sodium 133 L Potassium 3.6 Chloride 104 Carbon Dioxide 18 L Anion Gap 11 BUN 15.0 Creatinine 1.3 Est GFR (CKD-EPI)AfAm 50.21 Est GFR (CKD-EPI)NonAf 43.32 Random Glucose 126 H Lactic Acid Calcium 7.5 L Phosphorus Magnesium 2.0 Ferritin 884.8 H Total Bilirubin AST ALT Alkaline Phosphatase LD Total Creatine Kinase Creatine Kinase Index CK-MB (CK-2) C-Reactive Protein Total Protein Albumin COVID-19 (RICYK) 02/02/20 02/02/20 02/02/20 07:03 12:20 12:53 WBC 8.2 RBC 4.12 Hgb 10.9 Hct 33.0 MCV 80.2 MCH 26.4 MCHC 33.0 RDW 12.6 Plt Count 213 MPV 9.6 Absolute Neuts (auto) 7.2 Neutrophils % 88.1 H Neutrophils % (Manual) Band Neutrophils % Lymphocytes % 8.2 Lymphocytes % (Manual) Monocytes % 3.1 L Monocytes % (Manual) Eosinophils % 0.4 Basophils % 0.2 Nucleated RBC % Platelet Estimate ESR D-Dimer Sodium Potassium Chloride Carbon Dioxide Anion Gap BUN Creatinine Est GFR (CKD-EPI)AfAm Est GFR (CKD-EPI)NonAf Random Glucose Lactic Acid 4.8 H* Calcium Phosphorus Magnesium Ferritin Total Bilirubin AST ALT Alkaline Phosphatase LD Total Creatine Kinase 415 H Creatine Kinase Index 0.6 CK-MB (CK-2) 2.9 C-Reactive Protein 20.3 H Total Protein Albumin COVID-19 (RICKY) 02/02/20 02/02/20 02/02/20 12:53 12:53 18:00 WBC RBC Hgb Hct MCV MCH MCHC RDW Plt Count MPV Absolute Neuts (auto) Neutrophils % Neutrophils % (Manual) Band Neutrophils % Lymphocytes % Lymphocytes % (Manual) Monocytes % Monocytes % (Manual) Eosinophils % Basophils % Nucleated RBC % Platelet Estimate ESR D-Dimer 1564 H Sodium 135 L Potassium 4.0 Chloride 104 Carbon Dioxide 18 L Anion Gap 13 BUN 14.0 Creatinine 1.3 Est GFR (CKD-EPI)AfAm 50.21 Est GFR (CKD-EPI)NonAf 43.32 Random Glucose 114 H Lactic Acid 0.7 Calcium 8.0 L Phosphorus 3.0 Magnesium 2.1 Ferritin Total Bilirubin 0.8 AST 90 H ALT 85 H Alkaline Phosphatase 102 D LD Total 285 H Creatine Kinase Creatine Kinase Index CK-MB (CK-2) C-Reactive Protein Total Protein 5.5 L Albumin 2.7 L COVID-19 (RICKY) 02/02/20 02/03/20 02/03/20 22:00 05:25 05:25 WBC 8.4 RBC 3.52 L Hgb 9.6 L Hct 28.8 L D MCV 81.7 MCH 27.1 MCHC 33.2 RDW 13.8 Plt Count 163 D MPV 9.1 Absolute Neuts (auto) 6.7 Neutrophils % 79.5 D Neutrophils % (Manual) Band Neutrophils % Lymphocytes % 9.7 D Lymphocytes % (Manual) Monocytes % 9.5 Monocytes % (Manual) Eosinophils % 1.0 Basophils % 0.3 Nucleated RBC % 0 Platelet Estimate ESR D-Dimer Sodium 143 Potassium 3.4 L Chloride 112 H Carbon Dioxide 21 Anion Gap 10 BUN 9.9 Creatinine 0.6 Est GFR (CKD-EPI)AfAm 111.64 Est GFR (CKD-EPI)NonAf 96.33 Random Glucose 95 Lactic Acid Cancelled Calcium 7.5 L Phosphorus 2.9 Magnesium 2.0 Ferritin Total Bilirubin 1.0 AST 83 H ALT 95 H Alkaline Phosphatase 113 LD Total 215 Creatine Kinase Creatine Kinase Index CK-MB (CK-2) C-Reactive Protein Total Protein 4.9 L Albumin 2.0 L COVID-19 (RICKY) 02/03/20 02/03/20 02/03/20 05:25 05:25 05:25 WBC RBC Hgb Hct MCV MCH MCHC RDW Plt Count MPV Absolute Neuts (auto) Neutrophils % Neutrophils % (Manual) Band Neutrophils % Lymphocytes % Lymphocytes % (Manual) Monocytes % Monocytes % (Manual) Eosinophils % Basophils % Nucleated RBC % Platelet Estimate ESR 81 H D-Dimer 1873 H Sodium Potassium Chloride Carbon Dioxide Anion Gap BUN Creatinine Est GFR (CKD-EPI)AfAm Est GFR (CKD-EPI)NonAf Random Glucose Lactic Acid Calcium Phosphorus Magnesium Ferritin 1169.2 H Total Bilirubin AST ALT Alkaline Phosphatase LD Total Creatine Kinase Creatine Kinase Index CK-MB (CK-2) C-Reactive Protein 23.4 H Total Protein Albumin COVID-19 (RICKY) Active Medications Generic Name Dose Route Start Last Admin Trade Name Freq PRN Reason Stop Dose Admin Acetaminophen 1,000 mg 02/02/20 18:00 02/02/20 22:30 Ofirmev Injection - IVPB 02/03/20 14:11 1,000 mg Q6H PRN Administration FEVER Heparin Sodium (Porcine) 5,000 unit 02/02/20 09:00 02/03/20 06:19 Heparin - SQ 5,000 unit TID KAREN Administration Sodium Chloride 1,000 mls @ 125 mls/hr 02/02/20 12:28 02/02/20 12:25 Normal Saline - IV 125 mls/hr ASDIR KAREN Administration Meropenem 1 gm/ Dextrose 100 mls @ 200 mls/hr 02/02/20 18:00 02/03/20 03:34 IVPB 200 mls/hr Q8H-IV KAREN Administration ASSESSMENT/PLAN: Pt is a 64 yo female with no significant past medical history being admitted to ICU for concern of septic shock 2/2 to acute complicated UTI due to 2 cm L sided obstructing stone at L renal pelvis (leading to hydronephrosis). Pt is POD #1 s/p IR guided nephrostomy tube placement. #Neuro awake, neurologically intact; no concerns at this time #CV undifferentiated shock - concern for septic shock 2/2 acute complicated UTI - pt is hemodynamically stable; has not required levophed - maintain MAP > 65 #Pulm COVID + CXR 02/02 without focal infiltrate; some congestion and atelectasis - convalescent plasma ordered - monitoring O2 saturation - CXR tomorrow - trend inflammatory markers - consider lasix 20 IV for mild pulm congestion after transfusion of convalescent plasma if in fluid overload state #ID acute complicated UTI 2/2 L sided obstructing stone (2 cm) POD #1; s/p nephrostomy tube placement by IR; draining well - IV meropenem day 2; follow cultures(prior urine cx grew proteus) - ID recs appreciated - tylenol prn for fevers #Renal hydronephrosis 2/2 L sided obstructing stone (2 cm) cruz catheter and nephrostomy tube in place pt making urine - continue monitoring urine output, Cr # L sided obstructing stone (2cm) at renal pelvis - appreciate Urology recs - Pt scheduled for cystoscopy, retrograde stone removal, and stenting on 02/03 (@15:00) - Type and Screen, coags in the morning - NPO at midnight #FEN F - fluids (fluids dc'd today) E - replete lytes prn N - renal diet LTD [facility] - 02/01 (will consider removing today as long as pt remains hemodynamically stable) DVT PPx - SCDs Dispo: We will continue to follow the patient in the ICU. Thank you for this consultative opportunity. Visit type - Emergency Visit Emergency Visit: Yes ED Registration Date: 01/31/20 Care time: The patient presented to the Emergency Department on the above date and was hospitalized for further evaluation of their emergent condition. - New Patient This patient is new to me today: No - Critical Care Critical Care patient: Yes Total Critical Care Time (in minutes): 38 Critical Care Statement: The care of this patient involved high complexity decision making to prevent further life threatening deterioration of the patient's condition and/or to evaluate & treat vital organ system(s) failure or risk of failure. ATTENDING PHYSICIAN STATEMENT I saw and evaluated the patient. I reviewed the resident's note and discussed the case with the resident. I agree with the resident's findings and plan as documented. SUBJECTIVE: OBJECTIVE: ASSESSMENT AND PLAN:
--- NOTE | 2020-02-03 12:06 | PN ---
Teaching Attending Note Name of Resident: Joselin Hernandez ATTENDING PHYSICIAN STATEMENT I saw and evaluated the patient. I reviewed the resident's note and discussed the case with the resident. I agree with the resident's findings and plan as documented. SUBJECTIVE: Pt seen and examined in the ICU. s/p left nephrostomy placement. Fever curve trending down. Oxygenating well on room air. States some shortness of breath. OBJECTIVE: Vital Signs Period Temp Pulse Resp BP Sys/Torres Pulse Ox Last 24 Hr 98.6 F-103.0 F 66-97 18-33 94-142/46-79 91-100 Intake & Output 01/31/20 02/01/20 02/02/20 02/03/20 23:59 23:59 23:59 23:59 Intake Total 1175 1980 3775 2000 Output Total 900 2300 2240 Balance 1175 1080 1475 -240 Weight 63.73 kg Gen: NAD at rest Heart: RRR Lung: bibasilar rales Abd: soft, nontender Ext: no edema CBC, BMP 02/03/20 05:25 02/03/20 05:25 Active Medications Acetaminophen (Ofirmev Injection -) 1,000 mg IVPB Q6H PRN PRN Reason: FEVER Stop: 02/03/20 14:11 Heparin Sodium (Porcine) (Heparin -) 5,000 unit SQ TID KAREN Sodium Chloride (Normal Saline -) 1,000 mls @ 125 mls/hr IV ASDIR KAREN Last Admin: 02/03/20 07:00 Dose: 125 mls/hr Documented by: Meropenem 1 gm/ Dextrose 100 mls @ 200 mls/hr IVPB Q8H-IV KAREN Last Admin: 02/03/20 10:58 Dose: 200 mls/hr Documented by: ASSESSMENT AND PLAN: Acute Pyelonephritis/Hydronephrosis/Nephrolithiasis s/p left nephrostomy placement Severe Sepsis Lactic Acidosis Acute Kidney Injury + COVID19 Anemia - continue antibiotics - f/u cultures - O2 to keep Spo2 >90% - d/c IVF as pt becoming overloaded - convalescent plasma ordered - trend inflammatory markers - lasix post transfusion - monitor urine output, creatinine - DVT prophylaxis - continue ICU monitoring for now
[2020-02-03] MEDS ORDERED: HEPARIN NA (PORCINE) 5,000 UNITS/ML 1ML VIAL SQ SCH (14:00)
--- NOTE | 2020-02-03 14:03 | PN ---
Progress Note, Physician History of Present Illness: patient stable no new issues patient got nephrostomy placed now doing well - Current Medication List Current Medications: Active Medications Acetaminophen (Ofirmev Injection -) 1,000 mg IVPB Q6H PRN PRN Reason: FEVER Stop: 02/03/20 14:11 Heparin Sodium (Porcine) (Heparin -) 5,000 unit SQ [facility]ID [facility] Last Admin: 02/03/20 13:49 Dose: 5,000 unit Documented by: Sodium Chloride (Normal Saline -) 1,000 mls @ 125 mls/hr IV ASDIR [facility] Last Admin: 02/03/20 07:00 Dose: 125 mls/hr Documented by: Meropenem 1 gm/ Dextrose 100 mls @ 200 mls/hr IVPB Q8H-IV [facility] Last Admin: 02/03/20 10:58 Dose: 200 mls/hr Documented by: - Objective Vital Signs: Vital Signs Temperature 99.8 F H 02/03/20 10:00 Pulse Rate 79 02/03/20 12:00 Respiratory Rate 27 H 02/03/20 12:00 Blood Pressure 134/70 02/03/20 12:00 O2 Sat by Pulse Oximetry (%) 95 02/03/20 12:00 Constitutional: Yes: No Distress, Calm Cardiovascular: Yes: Regular Rate and Rhythm Respiratory: Yes: Regular, CTA Bilaterally Gastrointestinal: Yes: Normal Bowel Sounds, Soft Genitourinary: Yes: Other (nephrostomy tube) Musculoskeletal: Yes: WNL Extremities: Yes: WNL Neurological: Yes: Alert, Oriented Psychiatric: Yes: Alert, Oriented Labs: CBC, BMP 02/03/20 05:25 02/03/20 05:25 INR, PTT INR 1.34 (0.82-1.09) H 01/31/20 20:55 Assessment/Plan Problem List - Problems (1) LAINE (acute kidney injury) Code(s): N17.9 - ACUTE KIDNEY FAILURE, UNSPECIFIED (2) Pyelonephritis of left kidney Code(s): N12 - TUBULO-INTERSTITIAL NEPHRITIS, NOT SPCF ACUTE OR CHRONIC (3) Sepsis Code(s): A41.9 - SEPSIS, UNSPECIFIED ORGANISM (4) Ureterolithiasis Code(s): N20.1 - CALCULUS OF URETER (5) Kidney stone on left side Code(s): N20.0 - CALCULUS OF KIDNEY Assessment/Plan 64 y.o. female with fever, LUQ abd/Lt flank pain Sepsis Acute pylenephritis Obstructing renal calculi with hydronephrosis Fever covid plan continue current mgmt iv abx as per icu improving cc 36 min
[2020-02-03] MEDS ORDERED: ACETAMINOPHEN 325 MG TABLET (FP) PO PRN (15:13)
--- NOTE | 2020-02-03 16:20 | PN ---
DATE OF VISIT: DATE OF DICTATION: 02/02/2020 Patient is a 64-year-old female admitted via the emergency room with left hydroureteronephrosis. CT scan revealed a 2-cm stone in her left lower ureter. Presently, the patient is in mild distress. Her T-max was 103.3. Presently, it is 100.8. Blood pressure is 96/50. Her white count is 7.8. BUN is 15 and creatinine 1.3. Her urine shows 3+ blood, negative nitrites. Presently, the patient is in mild distress, but oriented and cooperative. Her abdomen is soft. There is left CVA tenderness with left lower quadrant tenderness. She presently is on IV antibiotics as per ID. We will recommend transferring patient to [facility] to undergo a cystoscopy, left ureteroscopic laser lithotripsy, and placement of a stent. This will be scheduled for the a.m. May transfer today. Elizabeth [id number]
[2020-02-04] MEDS: MEROPENEM 1 GM in DEXTROSE 5%-WATER 100 ML IVPB SCH ×3 (02:55→17:23)
[2020-02-04] MEDS ORDERED: DEXTROSE 5%-WATER 100 ML IVPB ONE ×3 (03:47→17:15)
[2020-02-04] MEDS ORDERED: MEROPENEM 1 GM VIAL (RESTRICTED TO ID) IVPB ONE ×3 (03:47→17:15)
[2020-02-04 06:30] LABS: HEMATOCRIT 31.2 % (32.4-45.2); HEMOGLOBIN 10.3 GM/dL (10.7-15.3); MCH 26.8 pg (25.7-33.7); MCHC 32.9 g/dl (32.0-36.0); MEAN CELL VOLUME 81.3 fl (80-96); MEAN PLT VOLUME 9.9 fl (7.5-11.1); PLATELET COUNT 218 K/MM3 (134-434); RBC 3.84 M/mm3 (3.60-5.2); RDW 13.7 % (11.6-15.6); WHITE BLOOD COUNT 9.8 K/mm3 (4.0-10.0)
[2020-02-04 06:45] LABS: INR 1.15 (0.83-1.09); PROTHROMBIN TIME (PATIENT) 13.6 SEC (9.7-13.0)
[2020-02-04 06:48] LABS: ACTIVATED PTT 26.3 SECONDS (25.2-36.5)
[2020-02-04 07:06] LABS: BILIRUBIN,TOTAL 0.4 mg/dL (0.2-1); BLOOD UREA NITROGEN 9.6 mg/dL (7-18); CREATININE 0.6 mg/dL (0.55-1.3); MAGNESIUM 1.8 mg/dL (1.8-2.4); PHOSPHOROUS 2.2 mg/dL (2.5-4.9); POTASSIUM 3.2 mmol/L (3.5-5.1); TOT PROT 5.2 g/dl (6.4-8.2)
--- NOTE | 2020-02-04 08:00 | PN ---
Physical Exam: TRANSFER NOTE: SUBJECTIVE: Patient seen and examined at bedside. Pt afebrile overnight. Reports very mild aching pain at site of nephrostomy tube. Pt oxygenating well on room air. No longer feeling SOB. Denies abdominal/flank pain, chills, nausea/vomiting, dysuria, hematuria, or other changes in urination. Scheduled for for cystoscopy, retrograde stone removal, and stenting today. Pt wants to wait until after the surgery regarding decision to receive convalescent plasma. OBJECTIVE: Vital Signs Period Temp Pulse Resp BP Sys/Torres Pulse Ox Last 24 Hr 98.7 F-101.2 F 69-88 18-27 109-134/62-76 91-99 GENERAL: The patient is awake, alert, and fully oriented, in no acute distress. HEAD: Normal with no signs of trauma. EYES: PERRL, extraocular movements intact, conjunctiva clear. ENT: Oropharynx clear without exudates, moist mucous membranes. NECK: Trachea midline, neck supple, no LAD; RIJ site clean, dry, and intact. LUNGS: Breath sounds equal, crackles still appreciated at bilateral bases; no wheezing; no accessory muscle use HEART: Regular rate and rhythm, S1, S2 without murmur, rub or gallop. ABDOMEN: Soft, nontender, nondistended, +BS in all 4 quadrants EXTREMITIES: 2+ pulses, warm, well-perfused, no edema. NEUROLOGICAL: AOx3; normal speech, gait not observed. SKIN: Warm, dry, normal turgor; nephrostomy tube site is clean, dry, and intact. Laboratory Results - last 24 hr 01/31/20 02/04/20 02/04/20 20:38 05:35 05:35 WBC RBC Hgb Hct MCV MCH MCHC RDW Plt Count MPV PT with INR 13.60 H INR 1.15 H PTT (Actin FS) 26.3 Sodium 141 Potassium 3.2 L Chloride 107 Carbon Dioxide 28 Anion Gap 6 L BUN 9.6 Creatinine 0.6 Est GFR (CKD-EPI)AfAm 111.64 Est GFR (CKD-EPI)NonAf 96.33 Random Glucose 119 H Calcium 8.0 L Phosphorus 2.2 L Magnesium 1.8 Ferritin 1008.2 H Total Bilirubin 0.4 AST 62 H ALT 92 H Alkaline Phosphatase 141 H LD Total 199 C-Reactive Protein 20.7 H Total Protein 5.2 L Albumin 2.0 L Blood Type O POSITIVE Antibody Screen Negative 02/04/20 05:35 WBC 9.8 RBC 3.84 Hgb 10.3 L Hct 31.2 L MCV 81.3 MCH 26.8 MCHC 32.9 RDW 13.7 Plt Count 218 D MPV 9.9 PT with INR INR PTT (Actin FS) Sodium Potassium Chloride Carbon Dioxide Anion Gap BUN Creatinine Est GFR (CKD-EPI)AfAm Est GFR (CKD-EPI)NonAf Random Glucose Calcium Phosphorus Magnesium Ferritin Total Bilirubin AST ALT Alkaline Phosphatase LD Total C-Reactive Protein Total Protein Albumin Blood Type Antibody Screen Active Medications Generic Name Dose Route Start Last Admin Trade Name Freq PRN Reason Stop Dose Admin Acetaminophen 650 mg 02/03/20 15:13 02/03/20 15:15 Tylenol - PO 650 mg Q6H PRN Administration Fever Or Pain Meropenem 1 gm/ Dextrose 100 mls @ 200 mls/hr 02/03/20 10:00 02/04/20 02:55 IVPB 200 mls/hr Q8H-IV KAREN Administration HOSPITAL COURSE: Pt is a 64 yo, asymptomatic COVID+, female with no significant PMH who presented to the [facility] ED for fevers 103.0 (Tmax), chills, worsening left upper quadrant/flank pain with non-bloody, bilious emesis x 1. She was seen in the ED on 01/26 & 01/29 for fever and left flank pain, treated with IV ABx in the ED then discharged with Nitrofurantoin (01/26) and Levaquin (01/29) with no improvement. CT and US showed 2 cm obstructive stone at L renal pelvis causing moderate hydronephrosis. Pt was admitted on 01/30 at [facility] for concern of sepsis 2/2 to complicated UTI d/t L sided renal stone. ID was consulted and she was started on IV aztreonam but became hypotensive with a worsening lactate (4.8). Transferred to [facility] ICU d/t concern for septic shock. She received IR guided nephrostomy tube placement upon arrival and prior to ICU admission. Fluid resuscitation was completed and IV Meropenem was started in the ICU (Aztreonam discontinued). Pt scheduled for for cystoscopy, retrograde stone removal, and stenting today with Urology. She has been hemodynamically stable, not requiring pressors, during ICU admission. Pt has been optimized and is stable for transfer to the floors after her urologic procedure. ASSESSMENT/PLAN: #Neuro awake, neurologically intact; no concerns at this time #CV undifferentiated shock - concern upon admission for septic shock 2/2 acute complicated UTI - pt is hemodynamically stable; has not required levophed - maintain MAP > 65 #Pulm COVID + CXR 02/03 - still with some congestion and atelectasis - will hold convalescent plasma for now as pt wants to decide post-operativenly - monitoring O2 saturation - consider continued monitoring of CXR - trend inflammatory markers (D-dimer, ferritin, LDH, ESR, CRP) - will give IV lasix 20 today as pt still congested #ID acute complicated UTI 2/2 L sided obstructing stone (2 cm) POD #2; s/p nephrostomy tube placement by IR - IV meropenem day 3; blood cx neg, body fluid/urine cx ;prior urine cx grew proteus) - ID recs appreciated - tylenol prn for fevers #Renal hydronephrosis 2/2 L sided obstructing stone (2 cm) cruz catheter and nephrostomy tube in place pt making urine - continue monitoring urine output, Cr # L sided obstructing stone (2cm) at renal pelvis - appreciate Urology recs - Pt scheduled for cystoscopy, retrograde stone removal, and stenting today (02/03) - Pt NPO since last night and coags + type & screen #FEN F - none E - mild hypoK today - repleted with 3 rounds of 10 mEq of IV KCl; replete lytes prn N - renal diet LTD [facility] - 02/01 (removed today) DVT PPx - SCDs Dispo: med-surg after urologic procedure Visit type - Emergency Visit Emergency Visit: Yes ED Registration Date: 01/31/20 Care time: The patient presented to the Emergency Department on the above date and was hospitalized for further evaluation of their emergent condition. - New Patient This patient is new to me today: No - Critical Care Critical Care patient: Yes Total Critical Care Time (in minutes): 38 Critical Care Statement: The care of this patient involved high complexity decis ion making to prevent further life threatening deterioration of the patient's condition and/or to evaluate & treat vital organ system(s) failure or risk of failure. ATTENDING PHYSICIAN STATEMENT I saw and evaluated the patient. I reviewed the resident's note and discussed the case with the resident. I agree with the resident's findings and plan as documented. SUBJECTIVE: OBJECTIVE: ASSESSMENT AND PLAN:
[2020-02-04] MEDS: KCL 10 MEQ IVPB 10 MEQ/100 ML INFUS.BAG IVPB SCH ×3 (09:03→10:10)
[2020-02-04] MEDS ORDERED: FUROSEMIDE 40 MG/4 ML INJECTABLE VIAL IVPUSH ONE (10:53)
--- NOTE | 2020-02-04 12:31 | PN ---
Teaching Attending Note Name of Resident: Joselin Hernandez ATTENDING PHYSICIAN STATEMENT I saw and evaluated the patient. I reviewed the resident's note and discussed the case with the resident. I agree with the resident's findings and plan as documented. SUBJECTIVE: Pt seen and examined in the ICU. Still some shortness of breath. Fever curve down. Declining convalescent plasma. OBJECTIVE: Vital Signs Period Temp Pulse Resp BP Sys/Torres Pulse Ox Last 24 Hr 98.1 F-101.2 F 68-88 18-27 109-135/62-82 95-99 Intake & Output 02/01/20 02/02/20 02/03/20 02/04/20 23:59 23:59 23:59 23:59 Intake Total 1980 3775 3455 300 Output Total 900 2300 4390 1999 Balance 0403 8172 -292 -0880 Weight 63.503 kg 63.503 kg Gen: NAD at rest Heart: RRR Lung: bibasilar rales Abd: soft, nontender Ext: no edema CBC, BMP 02/04/20 05:35 02/04/20 05:35 Active Medications Acetaminophen (Tylenol -) 650 mg PO Q6H PRN PRN Reason: Fever Or Pain Last Admin: 02/03/20 15:15 Dose: 650 mg Documented by: Meropenem 1 gm/ Dextrose 100 mls @ 200 mls/hr IVPB Q8H-IV KAREN Last Admin: 02/04/20 09:24 Dose: 200 mls/hr Documented by: ASSESSMENT AND PLAN: Acute Pyelonephritis/Hydronephrosis/Nephrolithiasis s/p left nephrostomy placement Severe Sepsis Lactic Acidosis Acute Kidney Injury + COVID19 Anemia - for OR today - continue antibiotics - f/u cultures - O2 to keep Spo2 >90% - trend inflammatory markers - lasix today - monitor urine output, creatinine - DVT prophylaxis - can monitor on floor
[2020-02-04 13:44] LABS: ALBUMIN 2.2 g/dl (3.4-5.0); BILIRUBIN,TOTAL 0.6 mg/dL (0.2-1); CALCIUM 8.7 mg/dL (8.5-10.1); CREATININE 0.6 mg/dL (0.55-1.3); POTASSIUM 3.6 mmol/L (3.5-5.1); TOT PROT 5.6 g/dl (6.4-8.2)
--- NOTE | 2020-02-04 14:15 | PN ---
Progress Note, Physician History of Present Illness: improving feels better now plan for stent - Current Medication List Current Medications: Active Medications Acetaminophen (Tylenol -) 650 mg PO Q6H PRN PRN Reason: Fever Or Pain Last Admin: 02/03/20 15:15 Dose: 650 mg Documented by: Meropenem 1 gm/ Dextrose 100 mls @ 200 mls/hr IVPB Q8H-IV KAREN Last Admin: 02/04/20 09:24 Dose: 200 mls/hr Documented by: - Objective Vital Signs: Vital Signs Temperature 98.9 F 02/04/20 12:00 Pulse Rate 65 02/04/20 12:00 Respiratory Rate 13 02/04/20 12:00 Blood Pressure 131/77 02/04/20 12:00 O2 Sat by Pulse Oximetry (%) 97 02/04/20 12:00 Constitutional: Yes: No Distress, Calm Cardiovascular: Yes: S1, S2 Respiratory: Yes: Regular, CTA Bilaterally Gastrointestinal: Yes: Normal Bowel Sounds, Soft Musculoskeletal: Yes: WNL Extremities: Yes: WNL Neurological: Yes: Alert, Oriented Psychiatric: Yes: Alert, Oriented Labs: CBC, BMP 02/04/20 05:35 02/04/20 12:41 INR, PTT INR 1.15 (0.83-1.09) H 02/04/20 05:35 Assessment/Plan Problem List - Problems (1) LAINE (acute kidney injury) Code(s): N17.9 - ACUTE KIDNEY FAILURE, UNSPECIFIED (2) Pyelonephritis of left kidney Code(s): N12 - TUBULO-INTERSTITIAL NEPHRITIS, NOT SPCF ACUTE OR CHRONIC (3) Sepsis Code(s): A41.9 - SEPSIS, UNSPECIFIED ORGANISM (4) Ureterolithiasis Code(s): N20.1 - CALCULUS OF URETER (5) Kidney stone on left side Code(s): N20.0 - CALCULUS OF KIDNEY Assessment/Plan 64 y.o. female with fever, LUQ abd/Lt flank pain Sepsis Acute pylenephritis Obstructing renal calculi with hydronephrosis Fever covid plan continue current mgmt iv abx as per icu improving stent placement cc 36 min
--- NOTE | 2020-02-04 15:46 | HOSP ---
Subjective - Review of Symptoms Events since last encounter: ACCEPTANCE NOTE Pt seen and assessed at bedside in ICU. Seen stable, NAD, AAOx3. Pt stable for transfer from ICU to med-surg. <Alanis Walker - Last Filed: 02/04/20 15:49> Physical Examination Vital Signs: Vital Signs Temperature 98.9 F 02/04/20 12:00 Pulse Rate 65 02/04/20 12:00 Respiratory Rate 13 02/04/20 12:00 Blood Pressure 131/77 02/04/20 12:00 O2 Sat by Pulse Oximetry (%) 97 02/04/20 12:00 GENERAL: The patient is awake, alert, and fully oriented, in no acute distress. HEAD: Normal with no signs of trauma. EYES: PERRL, extraocular movements intact, conjunctiva clear. ENT: Oropharynx clear without exudates, moist mucous membranes. NECK: Trachea midline, neck supple, no LAD LUNGS: Breath sounds equal, mild crackles bilateral bases; no wheezing; no accessory muscle use HEART: Regular rate and rhythm, S1, S2 without murmur, rub or gallop. ABDOMEN: Soft, nontender, nondistended, +BS in all 4 quadrants : Cole in place draining clear, yellow urine. EXTREMITIES: 2+ pulses, warm, well-perfused, no edema. NEUROLOGICAL: AOx3; normal speech, gait not observed. SKIN: Warm, dry, normal turgor; L nephrostomy tube in place, dressing c/d/i Labs: CBC, BMP 02/04/20 05:35 02/04/20 12:41 <Alanis Walker - Last Filed: 02/04/20 15:49> Vital Signs: Vital Signs Temperature 98.6 F 02/05/20 13:58 Pulse Rate 78 02/05/20 13:58 Respiratory Rate 16 02/05/20 13:58 Blood Pressure 123/77 02/05/20 13:58 O2 Sat by Pulse Oximetry (%) 94 L 02/05/20 07:00 Labs: CBC, BMP 02/05/20 05:43 02/05/20 05:43 <Abigail Patel - Last Filed: 02/05/20 15:05> Visit type - Emergency Visit Emergency Visit: Yes ED Registration Date: 01/31/20 Care time: The patient presented to the Emergency Department on the above date and was hospitalized for further evaluation of their emergent condition. - New Patient This patient is new to me today: Yes Date on this admission: 02/04/20 - Critical Care Critical Care patient: No <Alanis Walker - Last Filed: 02/04/20 15:49>
[2020-02-04] MEDS ORDERED: PROPOFOL 20 ML ONE (18:12)
[2020-02-04] MEDS ORDERED: SUCCINYLCHOLINE CHLORIDE 200 MG/10 ML SYRINGE ONE (18:12)
[2020-02-04] MEDS ORDERED: DEXAMETHASONE SOD PHOSPHATE 4 MG/1 ML VIAL ONE (18:55)
--- NOTE | 2020-02-04 19:22 | OP ---
Operative Note - Note: Operative Date: 02/04/20 Pre-Operative Diagnosis: LT. HYDRO, S/P LT. PCN Operation: CYSTO, LT. RETRO, LT. URETEROSCOPY, STONE MANIPULATION AND JJ STENT INSERTION AND D/C OF LT. PCN. Findings: LT. HYDRO, LT. RENAL PELVIC STONE, LT. PCN Post-Operative Diagnosis: Same as Pre-op Surgeon: Gloria Jordan Anesthesia: General Specimens Removed: LT. PCN Estimated Blood Loss (mls): 0 Drains & Tubes with Location: 24CM-6F LT. JJ STENT Drains, Volume Out (mls): 0 Blood Volume Replaced (mls): 0 Fluid Volume Replaced (mls): 0 Operative Report Dictated: Yes
[2020-02-05] MEDS ORDERED: MEROPENEM 1 GM VIAL (RESTRICTED TO ID) IVPB ONE ×3 (02:33→17:31)
[2020-02-05] MEDS ORDERED: DEXTROSE 5%-WATER 100 ML IVPB ONE ×3 (02:34→17:31)
[2020-02-05] MEDS: MEROPENEM 1 GM in DEXTROSE 5%-WATER 100 ML IVPB SCH ×3 (02:42→17:40)
[2020-02-05 06:22] LABS: HEMOGLOBIN 11.3 GM/dL (10.7-15.3); MCH 26.5 pg (25.7-33.7); MCHC 33.2 g/dl (32.0-36.0); MEAN CELL VOLUME 79.9 fl (80-96); MEAN PLT VOLUME 9.2 fl (7.5-11.1); PLATELET COUNT 308 K/MM3 (134-434); RBC 4.25 M/mm3 (3.60-5.2); RDW 13.7 % (11.6-15.6); WHITE BLOOD COUNT 12.5 K/mm3 (4.0-10.0)
[2020-02-05 06:48] LABS: ALBUMIN 2.4 g/dl (3.4-5.0); BILIRUBIN,TOTAL 0.8 mg/dL (0.2-1); BLOOD UREA NITROGEN 15.3 mg/dL (7-18); CALCIUM 8.3 mg/dL (8.5-10.1); CREATININE 0.6 mg/dL (0.55-1.3); MAGNESIUM 1.6 mg/dL (1.8-2.4); PHOSPHOROUS 3.8 mg/dL (2.5-4.9); POTASSIUM 3.4 mmol/L (3.5-5.1); TOT PROT 5.9 g/dl (6.4-8.2)
[2020-02-05 08:44] LABS: ERYTHROCYTE SEDIMENTATION RATE 86 mm/hr (0-30)
--- NOTE | 2020-02-05 11:43 | PN ---
Progress Note, Physician History of Present Illness: improving feels better now stent - Current Medication List Current Medications: Active Medications Acetaminophen (Tylenol -) 650 mg PO Q6H PRN PRN Reason: Fever Or Pain Last Admin: 02/03/20 15:15 Dose: 650 mg Documented by: Ascorbic Acid (Vitamin C -) 500 mg PO DAILY KAREN Meropenem 1 gm/ Dextrose 100 mls @ 200 mls/hr IVPB Q8H-IV KAREN Last Admin: 02/05/20 09:48 Dose: 200 mls/hr Documented by: Magnesium Chloride (Slow-Mag -) 128 mg PO DAILY KAREN Potassium Chloride (K-Dur -) 40 meq PO Q6H KAREN Stop: 02/05/20 16:01 Zinc Sulfate (Orazinc -) 220 mg PO DAILY KAREN - Objective Vital Signs: Vital Signs Temperature 98.1 F 02/05/20 09:58 Pulse Rate 80 02/05/20 09:58 Respiratory Rate 16 02/05/20 09:58 Blood Pressure 117/71 02/05/20 09:58 O2 Sat by Pulse Oximetry (%) 94 L 02/05/20 07:00 Constitutional: Yes: No Distress, Calm Cardiovascular: Yes: S1, S2 Respiratory: Yes: Regular, CTA Bilaterally Gastrointestinal: Yes: Normal Bowel Sounds, Soft Genitourinary: Yes: WNL Musculoskeletal: Yes: WNL Extremities: Yes: WNL Neurological: Yes: Alert, Oriented Psychiatric: Yes: Alert, Oriented Labs: CBC, BMP 02/05/20 05:43 02/05/20 05:43 INR, PTT INR 1.15 (0.83-1.09) H 02/04/20 05:35 Assessment/Plan Problem List - Problems (1) LAINE (acute kidney injury) Code(s): N17.9 - ACUTE KIDNEY FAILURE, UNSPECIFIED (2) Pyelonephritis of left kidney Code(s): N12 - TUBULO-INTERSTITIAL NEPHRITIS, NOT SPCF ACUTE OR CHRONIC (3) Sepsis Code(s): A41.9 - SEPSIS, UNSPECIFIED ORGANISM (4) Ureterolithiasis Code(s): N20.1 - CALCULUS OF URETER (5) Kidney stone on left side Code(s): N20.0 - CALCULUS OF KIDNEY Assessment/Plan 64 y.o. female with fever, LUQ abd/Lt flank pain Sepsis Acute pylenephritis Obstructing renal calculi with hydronephrosis Fever covid plan continue current mgmt will deescalte tomorrow if wbc remains normal
[2020-02-05] MEDS: POTASSIUM CHLORIDE TABS 20 MEQ TABLET.ER (FP) PO SCH ×2 (12:01→17:40)
--- NOTE | 2020-02-05 12:15 | PN ---
Progress Note (short form) - Note Progress Note: PULMONARY Pt seen and examined in the ICU. s/p Left JJ stent placement. No fevers recorded. Still some shortness of breath. Vital Signs Period Temp Pulse Resp BP Sys/Torres Pulse Ox Last 24 Hr 98.1 F-98.8 F 62-80 14-27 106-145/50-88 90-98 Intake & Output 02/02/20 02/03/20 02/04/20 02/05/20 23:59 23:59 23:59 23:59 Intake Total 3775 3455 1400 400 Output Total 2300 4390 4950 Balance 6592 -212 -7748 400 Weight 63.503 kg 63.503 kg 63.503 kg Gen: NAD at rest Heart: RRR Lung: basilar rales Abd: soft, nontender Ext: no edema CBC, BMP 02/05/20 05:43 02/05/20 05:43 Active Medications Acetaminophen (Tylenol -) 650 mg PO Q6H PRN PRN Reason: Fever Or Pain Last Admin: 02/03/20 15:15 Dose: 650 mg Documented by: Ascorbic Acid (Vitamin C -) 500 mg PO DAILY KAREN Meropenem 1 gm/ Dextrose 100 mls @ 200 mls/hr IVPB Q8H-IV KAREN Last Admin: 02/05/20 09:48 Dose: 200 mls/hr Documented by: Magnesium Chloride (Slow-Mag -) 128 mg PO DAILY KAREN Potassium Chloride (K-Dur -) 40 meq PO Q6H KAREN Stop: 02/05/20 16:01 Last Admin: 02/05/20 12:01 Dose: 40 meq Documented by: Zinc Sulfate (Orazinc -) 220 mg PO DAILY KAREN A/P ASSESSMENT AND PLAN: Acute Pyelonephritis/Hydronephrosis/Nephrolithiasis s/p left nephrostomy placement/removal s/p Left JJ stent placement POD 1 Severe Sepsis Lactic Acidosis Acute Kidney Injury + COVID19 Anemia - for OR today - continue antibiotics - f/u cultures - O2 to keep Spo2 >90% - trend inflammatory markers - lasix today - monitor urine output, creatinine - DVT prophylaxis - can monitor on floor
--- NOTE | 2020-02-05 12:30 | PN ---
Teaching Attending Note Name of Resident: Otoniel Dawson ATTENDING PHYSICIAN STATEMENT I saw and evaluated the patient. I reviewed the resident's note and discussed the case with the resident. I agree with the resident's findings and plan as documented. SUBJECTIVE: Seen and examined at bedside. Patient reports pain is significantly improved. No longer has flank tenderness. Fevers have resolved. Satting in the mid to low 90s on 2 L of oxygen. Patient currently in the ICU pending regular bed. OBJECTIVE: Last Vital Signs Temp Pulse Resp BP Pulse Ox 98.1 F 80 16 117/71 94 L 02/05/20 09:58 02/05/20 09:58 02/05/20 09:58 02/05/20 09:58 02/05/20 07:00 PE: Per resident note labs/Imaging: reviewed ASSESSMENT AND PLAN: 64-year-old female with no significant past medical history who presented to [place] for fevers and worsening left upper quadrant flank pain. Ultimately found to have obstructive kidney stone with possible pyelonephritis and COVID 19 #Acute complicated UTI secondary to left-sided obstructing stone Status post left ureteroscopy and JJ stent insertion Urology and infectious disease on board: Appreciate recommendations Urine culture negative Continue meropenem #COVID positive Patient still requiring low-dose oxygen ID on board: Appreciate recommendations. We will discuss starting IV steroids and or convalescent plasma Holding anticoagulation pending approval from urology given recent stent insertion Trend inflammatory markers daily #DVT prophylaxis: SCDs
--- NOTE | 2020-02-05 14:49 | PN ---
Physical Exam: SUBJECTIVE: Patient seen and examined at bedside. Patient denied any acute overnight events. Denies any complications with Urology operation. Patient feels mildly weak and attributes this to the surgery. OBJECTIVE: Vital Signs Period Temp Pulse Resp BP Sys/Torers Pulse Ox Last 24 Hr 98.1 F-98.8 F 62-80 14-27 106-145/50-88 90-98 GENERAL: The patient is awake, alert, and fully oriented, in no acute distress. HEAD: Normal with no signs of trauma. EYES: PERRL, extraocular movements intact, sclera anicteric, conjunctiva clear. No ptosis. ENT: Ears normal, nares patent, oropharynx clear without exudates, moist mucous membranes. NECK: Trachea midline, full range of motion, supple. LUNGS: Crackles heard in bilateral bases. HEART: Regular rate and rhythm, S1, S2 without murmur, rub or gallop. EXTREMITIES: 2+ pulses, warm, well-perfused, no edema. PSYCH: Normal mood, normal affect. SKIN: Warm, dry, normal turgor, no rashes or lesions noted Laboratory Results - last 24 hr 02/05/20 02/05/20 02/05/20 05:43 05:43 05:43 WBC 12.5 H RBC 4.25 Hgb 11.3 Hct 34.0 MCV 79.9 L MCH 26.5 MCHC 33.2 RDW 13.7 Plt Count 308 D MPV 9.2 ESR 86 H D-Dimer 1546 H Sodium 139 Potassium 3.4 L Chloride 103 Carbon Dioxide 30 Anion Gap 7 L BUN 15.3 Creatinine 0.6 Est GFR (CKD-EPI)AfAm 111.64 Est GFR (CKD-EPI)NonAf 96.33 Random Glucose 139 H Calcium 8.3 L Phosphorus 3.8 Magnesium 1.6 L Ferritin 768.2 H Total Bilirubin 0.8 AST 33 ALT 77 H Alkaline Phosphatase 129 H LD Total 193 C-Reactive Protein 12.9 H Total Protein 5.9 L Albumin 2.4 L Active Medications Generic Name Dose Route Start Last Admin Trade Name Freq PRN Reason Stop Dose Admin Acetaminophen 650 mg 02/03/20 15:13 02/03/20 15:15 Tylenol - PO 650 mg Q6H PRN Administration Fever Or Pain Apixaban 5 mg 02/05/20 22:00 Eliquis - PO BID KAREN Ascorbic Acid 500 mg 02/06/20 10:00 Vitamin C - PO DAILY KAREN Meropenem 1 gm/ Dextrose 100 mls @ 200 mls/hr 02/03/20 10:00 02/05/20 09:48 IVPB 200 mls/hr Q8H-IV KAREN Administration Magnesium Chloride 128 mg 02/06/20 10:00 Slow-Mag - PO DAILY KAREN Potassium Chloride 40 meq 02/05/20 10:00 02/05/20 12:01 K-Dur - PO 02/05/20 16:01 40 meq Q6H KAREN Administration Zinc Sulfate 220 mg 02/06/20 10:00 Orazinc - PO DAILY KAREN ASSESSMENT/PLAN: ASSESSMENT AND PLAN: Ms. Morton is a 64F with no significant past medical history who presented to the emergency department for left upper quadrant with radiating flank pain and a fever. Patient was then found to have renal calculus, pyelonephritis, and + Covid test. Patient was admitted and transported to the ICU for sepsis. #UTI with possible pyelonephritis - Patient was found to have renal stone on CT - seen by urology on 02/04/20 and had placed JJ stent on L kidney patient cleared by Urology for further procedures and will have to follow up on february 11 at 1pm Urine culture negative Continue meropenem #COVID positive Patient has an O2 saturation of 92% on 2 L of NC - consultation placed with infectious disease - ICU endorses patient had been asymptomatic the entire ICU course. - ICU attending did not want to proceed with agressive treatment (i.e prednisone and zinc) Patient hesitant on receiving convalescent plasma - Patient cleared by Uro for AC - placed on eloquis 5mg BID Trending inflammatory markers daily #DVT prophylaxis - SCDs Visit type - Emergency Visit Emergency Visit: Yes ED Registration Date: 01/31/20 Care time: The patient presented to the Emergency Department on the above date and was hospitalized for further evaluation of their emergent condition. - New Patient This patient is new to me today: Yes Date on this admission: 02/05/20 - Critical Care Critical Care patient: No - Discharge Referral Referred to [facility] No ATTENDING PHYSICIAN STATEMENT I saw and evaluated the patient. I reviewed the resident's note and discussed the case with the resident. I agree with the resident's findings and plan as documented. SUBJECTIVE: OBJECTIVE: ASSESSMENT AND PLAN:
[2020-02-05] MEDS: APIXABAN 5 MG TABLET PO SCH (21:14)
--- NOTE | 2020-02-05 21:34 | OP ---
DATE OF OPERATION: DATE OF DICTATION: 02/04/2020 HISTORY: Patient is a 64-year-old female with left hydronephrosis and left renal pelvic stone status post left percutaneous nephrostomy. PREOPERATIVE DIAGNOSIS: Left stone, left hydronephrosis. POSTOPERATIVE DIAGNOSIS: Left stone, left hydronephrosis. OPERATIVE PROCEDURE: Cystoscopy, left retrograde pyelogram, left ureteroscopy with stone manipulation, placement of a left JJ stent, removal of left percutaneous nephrostomy tube. ANESTHESIA: General. DESCRIPTION OF PROCEDURE: Under above-stated anesthesia, patient was prepped and draped in the usual sterile manner. She was placed in the dorsal lithotomy position. Cystoscopy revealed a normal bladder. Ureteral orifices were within normal limits. There was efflux of clear urine from the right. None was seen from the left. A left retrograde pyelogram was performed. This revealed a mild left hydroureteronephrosis with a filling defect in the upper ureter and renal pelvis. There was also a left percutaneous nephrostomy tube seen. A Glidewire was passed up the left renal unit. Ureteroscopy revealed a normal ureter. A stone appeared to be in the renal pelvis. This was manipulated and moved outside the pelvis. A large amount of purulent material drained. Therefore, the ureteroscope was removed. A 24-cm 6-Serbian JJ stent was left on the left side. X-rays confirmed good position of the left JJ stent. After the patient was repositioned, her left percutaneous nephrostomy tube was discontinued in the usual fashion. The patient tolerated the procedure well. She returned to the recovery room in good condition. Elizabeth [id number]
[2020-02-06] MEDS ORDERED: MEROPENEM 1 GM VIAL (RESTRICTED TO ID) IVPB ONE ×3 (01:00→17:01)
[2020-02-06] MEDS ORDERED: DEXTROSE 5%-WATER 100 ML IVPB ONE ×3 (01:01→17:01)
[2020-02-06] MEDS: MEROPENEM 1 GM in DEXTROSE 5%-WATER 100 ML IVPB SCH ×3 (02:15→17:15)
[2020-02-06 06:29] LABS: BASO % 0.4 % (0-2.0); EOS % 0.6 % (0-4.5); HEMATOCRIT 34.5 % (32.4-45.2); HEMOGLOBIN 11.5 GM/dL (10.7-15.3); LYMPH % 14.3 % (8-40); MCH 27.1 pg (25.7-33.7); MCHC 33.4 g/dl (32.0-36.0); MEAN CELL VOLUME 81.2 fl (80-96); MEAN PLT VOLUME 9.3 fl (7.5-11.1); NEUT % 79.7 % (42.8-82.8); PLATELET COUNT 354 K/MM3 (134-434); RBC 4.25 M/mm3 (3.60-5.2); RDW 13.5 % (11.6-15.6); WHITE BLOOD COUNT 14.4 K/mm3 (4.0-10.0)
[2020-02-06 06:53] LABS: ALBUMIN 2.5 g/dl (3.4-5.0); BILIRUBIN,TOTAL 0.7 mg/dL (0.2-1); BLOOD UREA NITROGEN 17.3 mg/dL (7-18); CALCIUM 8.5 mg/dL (8.5-10.1); CREATININE 0.7 mg/dL (0.55-1.3); MAGNESIUM 1.8 mg/dL (1.8-2.4); PHOSPHOROUS 3.4 mg/dL (2.5-4.9); POTASSIUM 4.3 mmol/L (3.5-5.1); TOT PROT 6.1 g/dl (6.4-8.2)
[2020-02-06] MEDS: ASCORBIC ACID 500 MG TABLET (FP) PO SCH (10:03)
[2020-02-06] MEDS: APIXABAN 5 MG TABLET PO SCH ×2 (10:03→22:15)
[2020-02-06] MEDS: MAGNESIUM CL 64 MG TABLET.SA PO SCH (10:03)
[2020-02-06] MEDS: ZINC SULFATE 220 MG CAPSULE (FP) PO SCH (10:03)
[2020-02-06 10:12] LABS: ANISOCYTOSIS 1+; MACROCYTOSIS 0; PLATELET ESTIMATE NORMAL
--- NOTE | 2020-02-06 13:24 | PN ---
Progress Note, Physician History of Present Illness: improving feels better now stent - Current Medication List Current Medications: Active Medications Acetaminophen (Tylenol -) 650 mg PO Q6H PRN PRN Reason: Fever Or Pain Last Admin: 02/03/20 15:15 Dose: 650 mg Documented by: Apixaban (Eliquis -) 5 mg PO BID [facility] Last Admin: 02/06/20 10:03 Dose: 5 mg Documented by: Ascorbic Acid (Vitamin C -) 500 mg PO DAILY [facility] Last Admin: 02/06/20 10:03 Dose: 500 mg Documented by: Meropenem 1 gm/ Dextrose 100 mls @ 200 mls/hr IVPB Q8H-IV [facility] Last Admin: 02/06/20 10:03 Dose: 200 mls/hr Documented by: Magnesium Chloride (Slow-Mag -) 128 mg PO DAILY [facility] Last Admin: 02/06/20 10:03 Dose: 128 mg Documented by: Zinc Sulfate (Orazinc -) 220 mg PO DAILY [facility] Last Admin: 02/06/20 10:03 Dose: 220 mg Documented by: - Objective Vital Signs: Vital Signs Temperature 99.4 F 02/06/20 11:00 Pulse Rate 76 02/06/20 11:00 Respiratory Rate 12 02/06/20 11:00 Blood Pressure 126/72 02/06/20 11:00 O2 Sat by Pulse Oximetry (%) 99 02/06/20 11:00 Constitutional: Yes: No Distress, Calm Cardiovascular: Yes: S1, S2 Respiratory: Yes: Regular, CTA Bilaterally Gastrointestinal: Yes: Normal Bowel Sounds, Soft Musculoskeletal: Yes: WNL Extremities: Yes: WNL Neurological: Yes: Alert, Oriented Psychiatric: Yes: Alert, Oriented Labs: CBC, BMP 02/06/20 05:15 02/06/20 05:15 INR, PTT INR 1.15 (0.83-1.09) H 02/04/20 05:35 Assessment/Plan Problem List - Problems (1) LAINE (acute kidney injury) Code(s): N17.9 - ACUTE KIDNEY FAILURE, UNSPECIFIED (2) Pyelonephritis of left kidney Code(s): N12 - TUBULO-INTERSTITIAL NEPHRITIS, NOT SPCF ACUTE OR CHRONIC (3) Sepsis Code(s): A41.9 - SEPSIS, UNSPECIFIED ORGANISM (4) Ureterolithiasis Code(s): N20.1 - CALCULUS OF URETER (5) Kidney stone on left side Code(s): N20.0 - CALCULUS OF KIDNEY Assessment/Plan 64 y.o. female with fever, LUQ abd/Lt flank pain Sepsis Acute pylenephritis Obstructing renal calculi with hydronephrosis Fever covid plan continue current mgmt wbc has increased cause continue abx
--- NOTE | 2020-02-06 16:51 | PN ---
Progress Note (short form) - Note Progress Note: Resting in NAD. SOB improved. No CP. No fever. Intake & Output 02/03/20 02/04/20 02/05/20 02/06/20 23:59 23:59 23:59 23:59 Intake Total 3455 1400 450 300 Output Total 4315 0200 Balance -238 -5093 450 300 Weight 140 lb 140 lb 140 lb Last Vital Signs Temp Pulse Resp BP Pulse Ox 99.8 F H 76 14 114/73 99 02/06/20 15:00 02/06/20 15:00 02/06/20 15:00 02/06/20 15:00 02/06/20 15:00 Active Medications Acetaminophen (Tylenol -) 650 mg PO Q6H PRN PRN Reason: Fever Or Pain Last Admin: 02/03/20 15:15 Dose: 650 mg Documented by: Apixaban (Eliquis -) 5 mg PO BID [facility] Last Admin: 02/06/20 10:03 Dose: 5 mg Documented by: Ascorbic Acid (Vitamin C -) 500 mg PO DAILY [facility] Last Admin: 02/06/20 10:03 Dose: 500 mg Documented by: Meropenem 1 gm/ Dextrose 100 mls @ 200 mls/hr IVPB Q8H-IV [facility] Last Admin: 02/06/20 10:03 Dose: 200 mls/hr Documented by: Magnesium Chloride (Slow-Mag -) 128 mg PO DAILY [facility] Last Admin: 02/06/20 10:03 Dose: 128 mg Documented by: Zinc Sulfate (Orazinc -) 220 mg PO DAILY [facility] Last Admin: 02/06/20 10:03 Dose: 220 mg Documented by: Gen: NAD at rest Heart: RRR Lung: few scattered rhonchi Abd: soft, nontender Ext: no edema Laboratory Results - last 24 hr 02/06/20 02/06/20 05:15 05:15 WBC 14.4 H RBC 4.25 Hgb 11.5 Hct 34.5 MCV 81.2 MCH 27.1 MCHC 33.4 RDW 13.5 Plt Count 354 MPV 9.3 Absolute Neuts (auto) 11.5 H Neutrophils % 79.7 Neutrophils % (Manual) 76.0 Band Neutrophils % 0.0 Lymphocytes % 14.3 D Lymphocytes % (Manual) 17.0 Monocytes % 5.0 Monocytes % (Manual) 3 L Eosinophils % 0.6 Eosinophils % (Manual) 1.0 Basophils % 0.4 Basophils % (Manual) 0.0 Myelocytes % (Man) 0 Promyelocytes % (Man) 0 Blast Cells % (Manual) 0 Nucleated RBC % 0 Metamyelocytes 0 Hypochromia 0 Platelet Estimate Normal Polychromasia 0 Poikilocytosis 0 Anisocytosis 1+ Microcytosis 1+ Macrocytosis 0 Sodium 138 Potassium 4.3 Chloride 102 Carbon Dioxide 29 Anion Gap 7 L BUN 17.3 Creatinine 0.7 Est GFR (CKD-EPI)AfAm 106.12 Est GFR (CKD-EPI)NonAf 91.56 Random Glucose 100 Calcium 8.5 Phosphorus 3.4 Magnesium 1.8 Ferritin 571.3 H Total Bilirubin 0.7 AST 33 ALT 65 H Alkaline Phosphatase 125 H Total Protein 6.1 L Albumin 2.5 L A/P ASSESSMENT AND PLAN: Acute Pyelonephritis/Hydronephrosis/Nephrolithiasis s/p left nephrostomy placement/removal POD #2 Left JJ stent placement Severe Sepsis Lactic Acidosis Acute Kidney Injury + COVID19 Anemia - continue antibiotics per ID - AC with Eliquis - O2 to keep Spo2 >90% - trend inflammatory markers - Daily assessment for lasix - monitor urine output, creatinine - DVT prophylaxis - can monitor on floor Dr Benitez
--- NOTE | 2020-02-06 17:35 | PN ---
Teaching Attending Note Name of Resident: Otoniel Dawson ATTENDING PHYSICIAN STATEMENT I saw and evaluated the patient. I reviewed the resident's note and discussed the case with the resident. I agree with the resident's findings and plan as documented. SUBJECTIVE: Seen and examined at bedside. Patient in no distress, no major complaints. CBC continues to rise. Discussed with ID: Concern for blocked stent or other remaining infection in the urinary system. Will observe overnight, if CBC continues to rise we will repeat CT scan. OBJECTIVE: Last Vital Signs Temp Pulse Resp BP Pulse Ox 99.8 F H 76 14 114/73 99 02/06/20 15:00 02/06/20 15:00 02/06/20 15:00 02/06/20 15:00 02/06/20 15:00 PE: Per resident note labs/Imaging: reviewed ASSESSMENT AND PLAN: 64-year-old female with no significant past medical history who presented to [facility] for fevers and worsening left upper quadrant flank pain. Ultimately found to have obstructive kidney stone with possible pyelonephritis and COVID 19 #Acute complicated UTI secondary to left-sided obstructing stone Status post left ureteroscopy and JJ stent insertion -CBC continues to rise. Discussed with ID: Concern for blocked stent or other remaining infection in the urinary system. Will observe overnight, if CBC continues to rise we will repeat CT scan. Urology and infectious disease on board: Appreciate recommendations Urine culture negative Continue meropenem #COVID positive Patient still requiring low-dose oxygen ID on board: Appreciate recommendations. Pt has opted against convalescent plasma anticoagulation for at least 30 days with eliquis Trend inflammatory markers daily #DVT prophylaxis: SCDs
--- NOTE | 2020-02-06 22:36 | PN ---
Physical Exam: SUBJECTIVE: Patient seen and examined at bedside. Patient does not endorse any acute overnight events. Patient endorses mild shortness of breath. OBJECTIVE: Vital Signs Period Temp Pulse Resp BP Sys/Torres Pulse Ox Last 24 Hr 98.8 F-99.8 F 76-84 10-14 114-144/72-87 78-99 GENERAL: The patient is awake, alert, and fully oriented, in no acute distress. NECK: Trachea midline, full range of motion, supple. LUNGS: mild crackles in lower bases bilaterally, no wheezes, no accessory muscle use. HEART: Regular rate and rhythm, S1, S2 without murmur, rub or gallop. ABDOMEN: Soft, nontender, nondistended, normoactive bowel sounds, no guarding, no rebound, no hepatosplenomegaly, no masses. EXTREMITIES: 2+ pulses, warm, well-perfused, no edema. PSYCH: Normal mood, normal affect. Laboratory Results - last 24 hr 02/06/20 02/06/20 05:15 05:15 WBC 14.4 H RBC 4.25 Hgb 11.5 Hct 34.5 MCV 81.2 MCH 27.1 MCHC 33.4 RDW 13.5 Plt Count 354 MPV 9.3 Absolute Neuts (auto) 11.5 H Neutrophils % 79.7 Neutrophils % (Manual) 76.0 Band Neutrophils % 0.0 Lymphocytes % 14.3 D Lymphocytes % (Manual) 17.0 Monocytes % 5.0 Monocytes % (Manual) 3 L Eosinophils % 0.6 Eosinophils % (Manual) 1.0 Basophils % 0.4 Basophils % (Manual) 0.0 Myelocytes % (Man) 0 Promyelocytes % (Man) 0 Blast Cells % (Manual) 0 Nucleated RBC % 0 Metamyelocytes 0 Hypochromia 0 Platelet Estimate Normal Polychromasia 0 Poikilocytosis 0 Anisocytosis 1+ Microcytosis 1+ Macrocytosis 0 Sodium 138 Potassium 4.3 Chloride 102 Carbon Dioxide 29 Anion Gap 7 L BUN 17.3 Creatinine 0.7 Est GFR (CKD-EPI)AfAm 106.12 Est GFR (CKD-EPI)NonAf 91.56 Random Glucose 100 Calcium 8.5 Phosphorus 3.4 Magnesium 1.8 Ferritin 571.3 H Total Bilirubin 0.7 AST 33 ALT 65 H Alkaline Phosphatase 125 H Total Protein 6.1 L Albumin 2.5 L Active Medications Generic Name Dose Route Start Last Admin Trade Name Freq PRN Reason Stop Dose Admin Acetaminophen 650 mg 02/03/20 15:13 02/03/20 15:15 Tylenol - PO 650 mg Q6H PRN Administration Fever Or Pain Apixaban 5 mg 02/05/20 22:00 02/06/20 22:15 Eliquis - PO 5 mg BID [facility] Administration Ascorbic Acid 500 mg 02/06/20 10:00 02/06/20 10:03 Vitamin C - PO 500 mg DAILY [facility] Administration Meropenem 1 gm/ Dextrose 100 mls @ 200 mls/hr 02/03/20 10:00 02/06/20 17:15 IVPB 200 mls/hr Q8H-IV [facility] Administration Magnesium Chloride 128 mg 02/06/20 10:00 02/06/20 10:03 Slow-Mag - PO 128 mg DAILY [facility] Administration Zinc Sulfate 220 mg 02/06/20 10:00 02/06/20 10:03 Orazinc - PO 220 mg DAILY [facility] Administration ASSESSMENT/PLAN: Ms. Morton is a 64F with no significant past medical history who presented to the emergency department for left upper quadrant with radiating flank pain and a fever. Patient was then found to have renal calculus, pyelonephritis, and + Covid test. Patient was admitted and transported to the ICU for sepsis. #UTI - Patient was found to have renal stone in left renal pelvis - seen by urology on 02/04/20 and had placed JJ stent on L kidney WBC trending up, will continue to follow with ID (Dr. Morrow) - ID expresses concern for secondary cause to increased wbc such as stent blockage or additional urinary infection Urine culture negative Continue meropenem #COVID positive Patient has an O2 saturation of 92% on 2 L of NC - consultation placed with infectious disease - ICU endorses patient had been asymptomatic the entire ICU course. - ICU attending did not want to proceed with agressive treatment (i.e prednisone and zinc) Patient refusing convalescent plasma - Patient cleared by Uro for AC - placed on eliquis 5mg BID Trending inflammatory markers daily #DVT prophylaxis - SCDs Visit type - Emergency Visit Emergency Visit: Yes ED Registration Date: 01/31/20 Care time: The patient presented to the Emergency Department on the above date and was hospitalized for further evaluation of their emergent condition. - New Patient This patient is new to me today: No - Critical Care Critical Care patient: No - Discharge Referral Referred to [facility] Med P.C.: No ATTENDING PHYSICIAN STATEMENT I saw and evaluated the patient. I reviewed the resident's note and discussed the case with the resident. I agree with the resident's findings and plan as documented. SUBJECTIVE: OBJECTIVE: ASSESSMENT AND PLAN:
[2020-02-07] MEDS ORDERED: MEROPENEM 1 GM VIAL (RESTRICTED TO ID) IVPB ONE ×3 (02:02→16:02)
[2020-02-07] MEDS ORDERED: DEXTROSE 5%-WATER 100 ML IVPB ONE ×3 (02:03→16:03)
[2020-02-07] MEDS: MEROPENEM 1 GM in DEXTROSE 5%-WATER 100 ML IVPB SCH ×3 (02:18→17:10)
[2020-02-07] MEDS ORDERED: DEXTROSE 50%-WATER - 25 GM/50 ML VIAL IVPUSH ONE (06:25)
[2020-02-07] MEDS ORDERED: ACETAMINOPHEN 325 MG TABLET (FP) PO PRN (07:25)
[2020-02-07 08:09] LABS: BASO % 0.5 % (0-2.0); EOS % 2.3 % (0-4.5); HEMATOCRIT 37.2 % (32.4-45.2); HEMOGLOBIN 12.2 GM/dL (10.7-15.3); LYMPH % 12.8 % (8-40); MCH 26.7 pg (25.7-33.7); MCHC 32.8 g/dl (32.0-36.0); MEAN CELL VOLUME 81.4 fl (80-96); MEAN PLT VOLUME 8.9 fl (7.5-11.1); MONO % 5.9 % (3.8-10.2); NEUT % 78.5 % (42.8-82.8); PLATELET COUNT 403 K/MM3 (134-434); RBC 4.57 M/mm3 (3.60-5.2); RDW 13.8 % (11.6-15.6); WHITE BLOOD COUNT 14.5 K/mm3 (4.0-10.0)
[2020-02-07 08:32] LABS: ALBUMIN 2.6 g/dl (3.4-5.0); BILIRUBIN,TOTAL 0.5 mg/dL (0.2-1); BLOOD UREA NITROGEN 13.8 mg/dL (7-18); CALCIUM 9.2 mg/dL (8.5-10.1); CREATININE 0.6 mg/dL (0.55-1.3); MAGNESIUM 2.2 mg/dL (1.8-2.4); PHOSPHOROUS 4.2 mg/dL (2.5-4.9); POTASSIUM 4.4 mmol/L (3.5-5.1); TOT PROT 6.4 g/dl (6.4-8.2)
[2020-02-07] MEDS ORDERED: PT OWN MED DRAWER 7, Y5N ONE (09:41)
[2020-02-07 09:54] LABS: PLATELET ESTIMATE NORMAL
--- NOTE | 2020-02-07 10:27 | PN ---
Progress Note, Physician History of Present Illness: c/o of left flank pain wbc still high - Current Medication List Current Medications: Active Medications Acetaminophen (Tylenol -) 650 mg PO Q6H PRN PRN Reason: Fever Or Pain Apixaban (Eliquis -) 5 mg PO BID [facility] Last Admin: 02/06/20 22:15 Dose: 5 mg Documented by: Ascorbic Acid (Vitamin C -) 500 mg PO DAILY [facility] Last Admin: 02/06/20 10:03 Dose: 500 mg Documented by: Meropenem 1 gm/ Dextrose 100 mls @ 200 mls/hr IVPB Q8H-IV [facility] Magnesium Chloride (Slow-Mag -) 128 mg PO DAILY [facility] Last Admin: 02/06/20 10:03 Dose: 128 mg Documented by: Zinc Sulfate (Orazinc -) 220 mg PO DAILY [facility] Last Admin: 02/06/20 10:03 Dose: 220 mg Documented by: - Objective Vital Signs: Vital Signs Temperature 98.9 F 02/07/20 08:50 Pulse Rate 83 02/07/20 08:50 Respiratory Rate 16 02/07/20 08:50 Blood Pressure 119/69 02/07/20 08:50 O2 Sat by Pulse Oximetry (%) 96 02/07/20 08:50 Constitutional: Yes: Calm, Mild Distress Cardiovascular: Yes: S1, S2 Respiratory: Yes: Regular, CTA Bilaterally Gastrointestinal: Yes: Normal Bowel Sounds, Soft Genitourinary: Yes: CVA Tenderness - Left Musculoskeletal: Yes: WNL Extremities: Yes: WNL Neurological: Yes: Alert, Oriented Labs: CBC, BMP 02/07/20 06:50 02/07/20 06:50 INR, PTT INR 1.15 (0.83-1.09) H 02/04/20 05:35 Assessment/Plan Problem List - Problems (1) LAINE (acute kidney injury) Code(s): N17.9 - ACUTE KIDNEY FAILURE, UNSPECIFIED (2) Pyelonephritis of left kidney Code(s): N12 - TUBULO-INTERSTITIAL NEPHRITIS, NOT SPCF ACUTE OR CHRONIC (3) Sepsis Code(s): A41.9 - SEPSIS, UNSPECIFIED ORGANISM (4) Ureterolithiasis Code(s): N20.1 - CALCULUS OF URETER (5) Kidney stone on left side Code(s): N20.0 - CALCULUS OF KIDNEY Assessment/Plan 64 y.o. female with fever, LUQ abd/Lt flank pain Sepsis Acute pylenephritis Obstructing renal calculi with hydronephrosis Fever covid plan continue current mgmt await for ct scan results
[2020-02-07] MEDS: MAGNESIUM CL 64 MG TABLET.SA PO SCH (10:31)
[2020-02-07] MEDS: APIXABAN 5 MG TABLET PO SCH ×2 (10:31→22:30)
[2020-02-07] MEDS: ZINC SULFATE 220 MG CAPSULE (FP) PO SCH (10:31)
[2020-02-07] MEDS: ASCORBIC ACID 500 MG TABLET (FP) PO SCH (10:31)
--- NOTE | 2020-02-07 12:17 | PN ---
Progress Note (short form) - Note Progress Note: SUBJECTIVE: Seen and examined at bedside. Patient reporting increased left flank pain. White count slightly higher than yesterday. CT scan ordered and shows "the distal portion of the stent is within the urinary bladder, however the proximal portion of the stent is gone through the lower pole calyces and is within the parenchyma of the lower pole of the kidney almost extending into the perinephric space." Dr. Jordan from urology notified: We will see the patient. OBJECTIVE: Last Vital Signs Temp Pulse Resp BP Pulse Ox 98.9 F 83 16 119/69 96 02/07/20 08:50 02/07/20 08:50 02/07/20 08:50 02/07/20 08:50 02/07/20 08:50 PE: Per resident note labs/Imaging: reviewed ASSESSMENT AND PLAN: 64-year-old female with no significant past medical history who presented to [facility] for fevers and worsening left upper quadrant flank pain. Ultimately found to have obstructive kidney stone with possible pyelonephritis and COVID 19 #Acute complicated UTI secondary to left-sided obstructing stone Status post left ureteroscopy and JJ stent insertion -"the distal portion of the stent is within the urinary bladder, however the proximal portion of the stent is gone through the lower pole calyces and is within the parenchyma of the lower pole of the kidney almost extending into the perinephric space." Urology and infectious disease on board: will re-evaluate patient Urine culture negative Continue meropenem #COVID positive Patient still requiring low-dose oxygen ID on board: Appreciate recommendations. Pt has opted against convalescent plasma anticoagulation for at least 30 days with eliquis Trend inflammatory markers daily #DVT prophylaxis: SCDs Visit type - Emergency Visit Emergency Visit: Yes ED Registration Date: 01/31/20 Care time: The patient presented to the Emergency Department on the above date and was hospitalized for further evaluation of their emergent condition. - New Patient This patient is new to me today: No - Critical Care Critical Care patient: No - Discharge Referral Referred to [facility] Med P.C.: No
--- NOTE | 2020-02-07 14:10 | PN ---
DATE OF VISIT: DATE OF DICTATION: 02/07/2020 Patient is status post a cystoscopy and placement of a 24-cm malleable left double-J stent in the left kidney under x-ray control. A CT scan performed because of an elevation of her white count and a continuation of her left flank pain revealed that the double-J stent is possibly entering the lower calyx and within the renal parenchyma of the lower pole. The distal end is curled up in the bladder. Her white count is 14,400. Hemoglobin is 12.2 and hematocrit 37.2. Her BUN is 13.8 and creatinine 0.6. She has been afebrile with a T-max of 98.9. Blood pressure 119/60. Patient is voiding clear urine. Her urine culture revealed streptococcus pneumonia antigen. Currently, her abdomen is soft. There is slight left CVA tenderness. Will recommend observation for next 24 hours. If symptoms progress, will recommend readjustment of stents in a.m. Will keep patient n.p.o. after midnight. Will schedule patient as an emergency procedure in the morning. Elizabeth [id number]
[2020-02-08] MEDS ORDERED: MEROPENEM 1 GM VIAL (RESTRICTED TO ID) IVPB ONE ×3 (01:09→17:12)
[2020-02-08] MEDS ORDERED: DEXTROSE 5%-WATER 100 ML IVPB ONE ×3 (01:09→17:12)
[2020-02-08] MEDS: MEROPENEM 1 GM in DEXTROSE 5%-WATER 100 ML IVPB SCH ×3 (01:14→17:14)
[2020-02-08 08:22] LABS: BASO % 0.4 % (0-2.0); EOS % 2.6 % (0-4.5); HEMATOCRIT 39.7 % (32.4-45.2); HEMOGLOBIN 13.1 GM/dL (10.7-15.3); LYMPH % 11.6 % (8-40); MCH 27.1 pg (25.7-33.7); MEAN CELL VOLUME 82.1 fl (80-96); MONO % 5.4 % (3.8-10.2); PLATELET COUNT 451 K/MM3 (134-434); RBC 4.84 M/mm3 (3.60-5.2); RDW 13.9 % (11.6-15.6); WHITE BLOOD COUNT 15.4 K/mm3 (4.0-10.0)
[2020-02-08 08:41] LABS: BLOOD UREA NITROGEN 17.3 mg/dL (7-18); CALCIUM 9.4 mg/dL (8.5-10.1); CREATININE 0.7 mg/dL (0.55-1.3); POTASSIUM 4.9 mmol/L (3.5-5.1)
[2020-02-08] MEDS ORDERED: PT OWN MED DRAWER 7, Y5N ONE (08:50)
[2020-02-08] MEDS: APIXABAN 5 MG TABLET PO SCH ×2 (09:07→23:30)
[2020-02-08] MEDS: MAGNESIUM CL 64 MG TABLET.SA PO SCH (09:11)
[2020-02-08] MEDS: ASCORBIC ACID 500 MG TABLET (FP) PO SCH (09:11)
[2020-02-08] MEDS: ZINC SULFATE 220 MG CAPSULE (FP) PO SCH (09:11)
[2020-02-08 11:14] LABS: ANISOCYTOSIS 0; MACROCYTOSIS 0; PLATELET ESTIMATE NORMAL
--- NOTE | 2020-02-08 12:39 | PN ---
Physical Exam: SUBJECTIVE: Patient seen and examined. Asymptomatic and afebrile. No acute events over night. Mild LUQ pain. OBJECTIVE: Vital Signs Period Temp Pulse Resp BP Sys/Torres Pulse Ox Last 24 Hr 98.1 F-99.5 F 80-95 16-18 106-132/62-84 93-97 GENERAL: The patient is awake, alert, and fully oriented, in no acute distress. NECK: Trachea midline, full range of motion, supple. LUNGS: no wheezes, no accessory muscle use. CTAB HEART: Regular rate and rhythm, S1, S2 without murmur, rub or gallop. ABDOMEN: Soft, Mild LUQ tenderness to deep palpation, nondistended, normoactive bowel sounds, No right CVA tenderness. Left CVA surgical dressing intact and clean. EXTREMITIES: 2+ pulses, warm, well-perfused, no edema. PSYCH: Normal mood, normal affect. Laboratory Results - last 24 hr 02/08/20 02/08/20 07:42 07:42 WBC 15.4 H RBC 4.84 Hgb 13.1 Hct 39.7 MCV 82.1 MCH 27.1 MCHC 33.0 RDW 13.9 Plt Count 451 H MPV 9.0 Absolute Neuts (auto) 12.4 H Neutrophils % 80.0 Neutrophils % (Manual) 70.0 Band Neutrophils % 0.0 Lymphocytes % 11.6 Lymphocytes % (Manual) 16.0 Monocytes % 5.4 Monocytes % (Manual) 3 L Eosinophils % 2.6 Eosinophils % (Manual) 1.0 Basophils % 0.4 Basophils % (Manual) 1.0 D Myelocytes % (Man) 9 H D Promyelocytes % (Man) 0 Blast Cells % (Manual) 0 Nucleated RBC % 0 Metamyelocytes 0 D Hypochromia 0 Platelet Estimate Normal Polychromasia 0 Poikilocytosis 0 Anisocytosis 0 Microcytosis 0 Macrocytosis 0 Sodium 138 Potassium 4.9 Chloride 106 Carbon Dioxide 24 Anion Gap 8 BUN 17.3 Creatinine 0.7 Est GFR (CKD-EPI)AfAm 106.12 Est GFR (CKD-EPI)NonAf 91.56 Random Glucose 100 Calcium 9.4 Active Medications Generic Name Dose Route Start Last Admin Trade Name Freq PRN Reason Stop Dose Admin Acetaminophen 650 mg 02/07/20 07:25 Tylenol - PO Q6H PRN Fever Or Pain Apixaban 5 mg 02/05/20 22:00 02/08/20 09:07 Eliquis - PO 5 mg BID [facility] Administration Ascorbic Acid 500 mg 02/06/20 10:00 02/08/20 09:11 Vitamin C - PO Not Given DAILY [facility] Meropenem 1 gm/ Dextrose 100 mls @ 200 mls/hr 02/07/20 10:00 02/08/20 09:07 IVPB 200 mls/hr Q8H-IV [facility] Administration Magnesium Chloride 128 mg 02/06/20 10:00 02/08/20 09:11 Slow-Mag - PO Not Given DAILY [facility] Zinc Sulfate 220 mg 02/06/20 10:00 02/08/20 09:11 Orazinc - PO Not Given DAILY [facility] ASSESSMENT/PLAN: 64 y/o F no pmh, who presented to [facility] for fevers and worsening left upper quadrant flank pain found to have obstructive kidney stone w/ left pyelo s/p Uterscopy and left JJ stent, found to be COVID 19+ #Acute complicated UTI 2/2 left-sided obstructing stone s/p ureteroscopy and JJ stent insertion As per CT imaging "the distal portion of the stent is within the urinary bladder, however the proximal portion of the stent is gone through the lower pole calyces and is within the parenchyma of the lower pole of the kidney almost extending into the perinephric space." Urology and infectious disease on board: Reached out to urology to re-evaluate patient possible procedure today on meropenem #COVID positive on Room air ID on board Pt opted against convalescent plasma Will need AC for at least 30 days with eliquis Trend inflammatory markers daily #FEN monitor lytes NPO #DVT prophylaxis SCDs Dispo: f/u with Urology, called service, pending call back, pt will likely need another procedure, will wait for uro Visit type - Emergency Visit Emergency Visit: Yes ED Registration Date: 01/31/20 Care time: The patient presented to the Emergency Department on the above date and was hospitalized for further evaluation of their emergent condition. - New Patient This patient is new to me today: Yes Date on this admission: 02/13/20 - Critical Care Critical Care patient: No - Discharge Referral Referred to [facility] Med P.C.: No ATTENDING PHYSICIAN STATEMENT I saw and evaluated the patient. I reviewed the resident's note and discussed the case with the resident. I agree with the resident's findings and plan as documented. SUBJECTIVE: OBJECTIVE: ASSESSMENT AND PLAN:
--- NOTE | 2020-02-08 13:27 | PN ---
Teaching Attending Note Name of Resident: Calvin Zapien ATTENDING PHYSICIAN STATEMENT I saw and evaluated the patient. I reviewed the resident's note and discussed the case with the resident. I agree with the resident's findings and plan as documented. SUBJECTIVE: Seen and examined at bedside. Pt reports pain is stable. WBC continues to inc rease. Pending urology decision on possible intervention OBJECTIVE: Last Vital Signs Temp Pulse Resp BP Pulse Ox 98.1 F 80 16 118/69 97 02/08/20 09:12 02/08/20 09:12 02/08/20 09:12 02/08/20 09:12 02/08/20 09:12 PE: Per resident note labs/Imaging: reviewed ASSESSMENT AND PLAN: 64-year-old female with no significant past medical history who presented to [facility] for fevers and worsening left upper quadrant flank pain. Ultimately found to have obstructive kidney stone with possible pyelonephritis and COVID 19 #Acute complicated UTI secondary to left-sided obstructing stone Status post left ureteroscopy and JJ stent insertion -"the distal portion of the stent is within the urinary bladder, however the proximal portion of the stent is gone through the lower pole calyces and is within the parenchyma of the lower pole of the kidney almost extending into the perinephric space." Urology and infectious disease on board: will re-evaluate patient Urine culture negative Continue meropenem #COVID positive Patient still requiring low-dose oxygen ID on board: Appreciate recommendations. Pt has opted against convalescent plasma anticoagulation for at least 30 days with eliquis Trend inflammatory markers daily #DVT prophylaxis: SCDs
--- NOTE | 2020-02-08 21:36 | PN ---
Progress Note (short form) - Note Progress Note: UROLOGY NOTE: 64 y/o F with left renal stone. she is s/p cysto left retrograde left ureteroscopy and placement of a left jj stent. CT reveals possible migration of stent into left lower calyx and left renal parenchyma. Patient with left CVA tenderness, WBC [id number], afebrile, UCX reveals no growth. Impression: possible cephalic migration of left stent. PLAN: cysto and stent repositioning in am. will keep NPO.
[2020-02-09] MEDS ORDERED: MEROPENEM 1 GM VIAL (RESTRICTED TO ID) IVPB ONE ×3 (02:02→17:40)
[2020-02-09] MEDS ORDERED: DEXTROSE 5%-WATER 100 ML IVPB ONE ×3 (02:02→17:40)
[2020-02-09] MEDS: MEROPENEM 1 GM in DEXTROSE 5%-WATER 100 ML IVPB SCH ×3 (02:24→17:42)
[2020-02-09 09:00] LABS: HEMATOCRIT 37.9 % (32.4-45.2); HEMOGLOBIN 12.5 GM/dL (10.7-15.3); MCH 26.8 pg (25.7-33.7); MCHC 32.9 g/dl (32.0-36.0); MEAN CELL VOLUME 81.4 fl (80-96); MEAN PLT VOLUME 8.6 fl (7.5-11.1); PLATELET COUNT 488 K/MM3 (134-434); RBC 4.66 M/mm3 (3.60-5.2); RDW 13.8 % (11.6-15.6); WHITE BLOOD COUNT 12.3 K/mm3 (4.0-10.0)
[2020-02-09 09:25] LABS: BILIRUBIN,TOTAL 0.5 mg/dL (0.2-1); BLOOD UREA NITROGEN 17.1 mg/dL (7-18); CALCIUM 9.2 mg/dL (8.5-10.1); CREATININE 0.6 mg/dL (0.55-1.3); MAGNESIUM 2.5 mg/dL (1.8-2.4); PHOSPHOROUS 3.4 mg/dL (2.5-4.9); POTASSIUM 5.3 mmol/L (3.5-5.1); TOT PROT 6.9 g/dl (6.4-8.2)
[2020-02-09] MEDS: APIXABAN 5 MG TABLET PO SCH ×2 (09:34→21:34)
[2020-02-09] MEDS: MAGNESIUM CL 64 MG TABLET.SA PO SCH (09:34)
[2020-02-09] MEDS: ZINC SULFATE 220 MG CAPSULE (FP) PO SCH (09:34)
[2020-02-09] MEDS: ASCORBIC ACID 500 MG TABLET (FP) PO SCH (09:35)
--- NOTE | 2020-02-09 10:45 | PN ---
Progress Note, Physician History of Present Illness: feeling better today stent migration urology going to take the patient to or wbc trending down - Current Medication List Current Medications: Active Medications Acetaminophen (Tylenol -) 650 mg PO Q6H PRN PRN Reason: Fever Or Pain Apixaban (Eliquis -) 5 mg PO BID ON LICENSE OF [facility] Last Admin: 02/09/20 09:34 Dose: Not Given Documented by: Ascorbic Acid (Vitamin C -) 500 mg PO DAILY ON LICENSE OF [facility] Last Admin: 02/09/20 09:35 Dose: Not Given Documented by: Meropenem 1 gm/ Dextrose 100 mls @ 200 mls/hr IVPB Q8H-IV ON LICENSE OF [facility] Last Admin: 02/09/20 09:38 Dose: 200 mls/hr Documented by: Magnesium Chloride (Slow-Mag -) 128 mg PO DAILY ON LICENSE OF [facility] Last Admin: 02/09/20 09:34 Dose: Not Given Documented by: Zinc Sulfate (Orazinc -) 220 mg PO DAILY ON LICENSE OF [facility] Last Admin: 02/09/20 09:34 Dose: Not Given Documented by: - Objective Vital Signs: Vital Signs Temperature 99.1 F 02/09/20 10:00 Pulse Rate 86 02/09/20 10:00 Respiratory Rate 20 02/09/20 10:00 Blood Pressure 115/73 02/09/20 10:00 O2 Sat by Pulse Oximetry (%) 96 02/09/20 10:00 Constitutional: Yes: Calm, Mild Distress Cardiovascular: Yes: S1, S2 Respiratory: Yes: Regular, CTA Bilaterally Gastrointestinal: Yes: Normal Bowel Sounds, Soft Genitourinary: Yes: CVA Tenderness - Left Musculoskeletal: Yes: WNL Extremities: Yes: WNL Neurological: Yes: Alert, Oriented Psychiatric: Yes: Alert, Oriented Labs: CBC, BMP 02/09/20 08:09 02/09/20 08:09 INR, PTT INR 1.15 (0.83-1.09) H 02/04/20 05:35 Assessment/Plan Problem List - Problems (1) LAINE (acute kidney injury) Code(s): N17.9 - ACUTE KIDNEY FAILURE, UNSPECIFIED (2) Pyelonephritis of left kidney Code(s): N12 - TUBULO-INTERSTITIAL NEPHRITIS, NOT SPCF ACUTE OR CHRONIC (3) Sepsis Code(s): A41.9 - SEPSIS, UNSPECIFIED ORGANISM (4) Ureterolithiasis Code(s): N20.1 - CALCULUS OF URETER (5) Kidney stone on left side Code(s): N20.0 - CALCULUS OF KIDNEY 6 sepsis Assessment/Plan 64 y.o. female with fever, LUQ abd/Lt flank pain Sepsis Acute pylenephritis Obstructing renal calculi with hydronephrosis Fever covid plan continue abx plan for or today rest as per the team
--- NOTE | 2020-02-09 12:12 | PN ---
Teaching Attending Note Name of Resident: Slade Cline ATTENDING PHYSICIAN STATEMENT I saw and evaluated the patient. I reviewed the resident's note and discussed the case with the resident. I agree with the resident's findings and plan as documented. SUBJECTIVE: Seen and examined at bedside. Pt reports pain is stable. WBC decreasing Pending cystoscopy for stend migration OBJECTIVE: Last Vital Signs Temp Pulse Resp BP Pulse Ox 99.1 F 86 20 115/73 96 02/09/20 10:02/09/20 10:02/09/20 10:00 02/09/20 10:02/09/20 10:00 PE: Per resident note labs/Imaging: reviewed ASSESSMENT AND PLAN: 64-year-old female with no significant past medical history who presented to [place] for fevers and worsening left upper quadrant flank pain. Ultimately found to have obstructive kidney stone with possible pyelonephritis and COVID 19 #Acute complicated UTI secondary to left-sided obstructing stone Status post left ureteroscopy and JJ stent insertion -"the distal portion of the stent is within the urinary bladder, however the proximal portion of the stent is gone through the lower pole calyces and is within the parenchyma of the lower pole of the kidney almost extending into the perinephric space." Urology and infectious disease on board: will re-evaluate patient Urine culture negative Continue meropenem #COVID positive Patient still requiring low-dose oxygen ID on board: Appreciate recommendations. Pt has opted against convalescent plasma anticoagulation for at least 30 days with eliquis Trend inflammatory markers daily #DVT prophylaxis: SCDs
[2020-02-09] MEDS ORDERED: PROPOFOL 20 ML ONE (12:43)
[2020-02-09] MEDS ORDERED: SUCCINYLCHOLINE CHLORIDE 200 MG/10 ML SYRINGE ONE (12:44)
[2020-02-09] MEDS ORDERED: ONDANSETRON 4 MG/2 ML VIAL IVPUSH PRN (13:02)
[2020-02-09 13:39] LABS: ERYTHROCYTE SEDIMENTATION RATE 60 mm/hr (0-30)
[2020-02-09] MEDS ORDERED: ceFAZolin SODIUM 1 GM VIAL ONE (13:55)
[2020-02-09] MEDS ORDERED: ceFAZolin 2 GRAM PREMIX BAG IVPB ONE (13:58)
--- NOTE | 2020-02-09 14:10 | PN ---
Physical Exam: SUBJECTIVE: Patient seen and examined. Patient was seated and denies any overnight events. Patient denies any CVA tenderness or abdominal pain. Patient is NPO pending stent placement OBJECTIVE: Vital Signs Period Temp Pulse Resp BP Sys/Torres Pulse Ox Last 24 Hr 98.9 F-99.4 F 79-88 18-20 105-121/54-73 96-97 GENERAL: The patient is awake, alert, and fully oriented, in no acute distress. HEAD: Normal with no signs of trauma. LUNGS: Breath sounds equal, clear to auscultation bilaterally, no wheezes, no crackles, no accessory muscle use. HEART: Regular rate and rhythm, S1, S2 without murmur, rub or gallop. ABDOMEN: Soft, nontender, nondistended, normoactive bowel sounds, no guarding, no rebound, no hepatosplenomegaly, no masses. EXTREMITIES: 2+ pulses, warm, well-perfused, no edema. PSYCH: Normal mood, normal affect. Laboratory Results - last 24 hr 02/09/20 02/09/20 02/09/20 08:09 08:09 08:09 WBC 12.3 H RBC 4.66 Hgb 12.5 Hct 37.9 MCV 81.4 MCH 26.8 MCHC 32.9 RDW 13.8 Plt Count 488 H MPV 8.6 ESR 60 H D-Dimer 1696 H Sodium 138 Potassium 5.3 H Chloride 106 Carbon Dioxide 23 Anion Gap 9 BUN 17.1 Creatinine 0.6 Est GFR (CKD-EPI)AfAm 111.64 Est GFR (CKD-EPI)NonAf 96.33 Random Glucose 99 Calcium 9.2 Phosphorus 3.4 Magnesium 2.5 H Ferritin 614.4 H Total Bilirubin 0.5 AST 34 ALT 64 H Alkaline Phosphatase 121 H LD Total 194 C-Reactive Protein 5.2 H Total Protein 6.9 Albumin 3.0 L Active Medications Generic Name Dose Route Start Last Admin Trade Name Freq PRN Reason Stop Dose Admin Acetaminophen 650 mg 02/07/20 07:25 Tylenol - PO Q6H PRN Fever Or Pain Apixaban 5 mg 02/05/20 22:00 02/09/20 09:34 Eliquis - PO Not Given BID [facility] Ascorbic Acid 500 mg 02/06/20 10:00 02/09/20 09:35 Vitamin C - PO Not Given DAILY [facility] Fentanyl 50 mcg 02/09/20 13:02 Sublimaze Injection - IVPUSH 02/10/20 13:01 [id number] PRN PAIN-PACU ORDER X 4 DOSES ONLY Meropenem 1 gm/ Dextrose 100 mls @ 200 mls/hr 02/07/20 10:00 02/09/20 09:38 IVPB 200 mls/hr Q8H-IV KAREN Administration Magnesium Chloride 128 mg 02/06/20 10:00 02/09/20 09:34 Slow-Mag - PO Not Given DAILY KAREN Ondansetron HCl 4 mg 02/09/20 13:02 Zofran Injection IVPUSH 02/10/20 13:01 Q6H PRN NAUSEA AND/OR VOMITING Zinc Sulfate 220 mg 02/06/20 10:00 02/09/20 09:34 Orazinc - PO Not Given DAILY KAREN ASSESSMENT/PLAN: Ms. Morton is a 64F with no significant past medical history who presented to the emergency department for left upper quadrant with radiating flank pain and a fever. Patient was then found to have renal calculus, pyelonephritis, and + Covid test. Patient was admitted and transported to the ICU for sepsis. Patient is S/P stent replacement with migration of stent in need of repositioning. #Obstructive UTI secondary to renal stone - Patient was found to have renal stone in left renal pelvis - JJ stent placed and was found to have migrated Per Urology - "CT shows possible migration of stent into left lower calyx and left renal parenchyma" -Stent repositioning surgery for today - Elevated WBC - 15 -ID consulted #COVID positive Patient has an O2 saturation of 100% on room air and asymptomatic Trending inflammatory markers daily - patient placed on 30 day eliquis therapy #DVT prophylaxis - SCDs Visit type - Emergency Visit Emergency Visit: Yes ED Registration Date: 01/31/20 Care time: The patient presented to the Emergency Department on the above date and was hospitalized for further evaluation of their emergent condition. - New Patient This patient is new to me today: No - Critical Care Critical Care patient: No - Discharge Referral Referred to [facility] Med P.C.: No ATTENDING PHYSICIAN STATEMENT I saw and evaluated the patient. I reviewed the resident's note and discussed the case with the resident. I agree with the resident's findings and plan as documented. SUBJECTIVE: OBJECTIVE: ASSESSMENT AND PLAN:
[2020-02-09] MEDS ORDERED: SODIUM POLYSTYRENE SULFONATE 15 GM/60 ML BOTTLE PO ONE (19:10)
[2020-02-09 19:14] VITALS: BMI 25.7
--- NOTE | 2020-02-09 21:42 | OP ---
Operative Note - Note: Operative Date: 02/09/20 Pre-Operative Diagnosis: cephalic lt. jj stent migration Operation: cysto,lt. jj stent repositioning Post-Operative Diagnosis: Same as Pre-op Surgeon: Gloria Jordan Anesthesia: General Specimens Removed: none Estimated Blood Loss (mls): 0 Instrument used (Debridements only): 0 Drains & Tubes with Location: 24cm-6f-lt. jj stent Drains, Volume Out (mls): 0 Blood Volume Replaced (mls): 0 Fluid Volume Replaced (mls): 0 Operative Report Dictated: Yes
[2020-02-10] MEDS ORDERED: MEROPENEM 1 GM VIAL (RESTRICTED TO ID) IVPB ONE ×2 (02:02→09:00)
[2020-02-10] MEDS ORDERED: DEXTROSE 5%-WATER 100 ML IVPB ONE ×2 (02:03→09:01)
[2020-02-10] MEDS: MEROPENEM 1 GM in DEXTROSE 5%-WATER 100 ML IVPB SCH ×2 (02:07→09:27)
[2020-02-10 08:09] LABS: BASO % 0.7 % (0-2.0); EOS % 3.5 % (0-4.5); HEMOGLOBIN 11.9 GM/dL (10.7-15.3); LYMPH % 15.5 % (8-40); MCHC 33.1 g/dl (32.0-36.0); MEAN CELL VOLUME 81.5 fl (80-96); MEAN PLT VOLUME 8.5 fl (7.5-11.1); MONO % 5.5 % (3.8-10.2); NEUT % 74.8 % (42.8-82.8); PLATELET COUNT 474 K/MM3 (134-434); RBC 4.41 M/mm3 (3.60-5.2); RDW 13.4 % (11.6-15.6); WHITE BLOOD COUNT 9.7 K/mm3 (4.0-10.0)
[2020-02-10 08:24] LABS: ALBUMIN 2.8 g/dl (3.4-5.0); BILIRUBIN,TOTAL 0.4 mg/dL (0.2-1); BLOOD UREA NITROGEN 16.4 mg/dL (7-18); CALCIUM 8.7 mg/dL (8.5-10.1); CREATININE 0.6 mg/dL (0.55-1.3); MAGNESIUM 2.3 mg/dL (1.8-2.4); PHOSPHOROUS 2.8 mg/dL (2.5-4.9); POTASSIUM 4.5 mmol/L (3.5-5.1); TOT PROT 6.4 g/dl (6.4-8.2)
[2020-02-10] MEDS: ZINC SULFATE 220 MG CAPSULE (FP) PO SCH (09:26)
[2020-02-10] MEDS: MAGNESIUM CL 64 MG TABLET.SA PO SCH (09:26)
[2020-02-10] MEDS: ASCORBIC ACID 500 MG TABLET (FP) PO SCH (09:26)
[2020-02-10] MEDS: APIXABAN 5 MG TABLET PO SCH (09:26)
[2020-02-10 10:49] LABS: ANISOCYTOSIS 0; MACROCYTOSIS 0; PLATELET ESTIMATE NORMAL
--- NOTE | 2020-02-10 11:46 | PN ---
Progress Note, Physician History of Present Illness: stable doing well feels weak - Current Medication List Current Medications: Active Medications Acetaminophen (Tylenol -) 650 mg PO Q6H PRN PRN Reason: Fever Or Pain Apixaban (Eliquis -) 5 mg PO BID [facility] Last Admin: 02/10/20 09:26 Dose: 5 mg Documented by: Ascorbic Acid (Vitamin C -) 500 mg PO DAILY [facility] Last Admin: 02/10/20 09:26 Dose: 500 mg Documented by: Fentanyl (Sublimaze Injection -) 50 mcg IVPUSH [id number] PRN PRN Reason: PAIN-PACU ORDER X 4 DOSES ONLY Stop: 02/10/20 13:01 Meropenem 1 gm/ Dextrose 100 mls @ 200 mls/hr IVPB Q8H-IV [facility] Last Admin: 02/10/20 09:27 Dose: 200 mls/hr Documented by: Magnesium Chloride (Slow-Mag -) 128 mg PO DAILY [facility] Last Admin: 02/10/20 09:26 Dose: 128 mg Documented by: Ondansetron HCl (Zofran Injection) 4 mg IVPUSH Q6H PRN PRN Reason: NAUSEA AND/OR VOMITING Stop: 02/10/20 13:01 Zinc Sulfate (Orazinc -) 220 mg PO DAILY [facility] Last Admin: 02/10/20 09:26 Dose: 220 mg Documented by: - Objective Vital Signs: Vital Signs Temperature 99.2 F 02/10/20 08:50 Pulse Rate 100 H 02/10/20 08:50 Respiratory Rate 18 02/10/20 08:50 Blood Pressure 131/76 02/10/20 08:50 O2 Sat by Pulse Oximetry (%) 95 02/10/20 08:50 Constitutional: Yes: No Distress, Calm Cardiovascular: Yes: S1, S2 Respiratory: Yes: Regular, CTA Bilaterally Gastrointestinal: Yes: Normal Bowel Sounds, Soft Musculoskeletal: Yes: WNL Extremities: Yes: WNL Neurological: Yes: Alert, Oriented Psychiatric: Yes: Alert, Oriented Labs: CBC, BMP 02/10/20 07:15 02/10/20 07:15 INR, PTT INR 1.15 (0.83-1.09) H 02/04/20 05:35 Assessment/Plan Problem List - Problems (1) LAINE (acute kidney injury) Code(s): N17.9 - ACUTE KIDNEY FAILURE, UNSPECIFIED (2) Pyelonephritis of left kidney Code(s): N12 - TUBULO-INTERSTITIAL NEPHRITIS, NOT SPCF ACUTE OR CHRONIC (3) Sepsis Code(s): A41.9 - SEPSIS, UNSPECIFIED ORGANISM (4) Ureterolithiasis Code(s): N20.1 - CALCULUS OF URETER (5) Kidney stone on left side Code(s): N20.0 - CALCULUS OF KIDNEY 6 sepsis Assessment/Plan 64 y.o. female with fever, LUQ abd/Lt flank pain Sepsis Acute pylenephritis Obstructing renal calculi with hydronephrosis Fever covid plan continue abx can change to oral cipro for another 48 hours
[2020-02-10 13:49] VITALS: BP 119/67; PULSE 87; TEMP 98.7
--- NOTE | 2020-02-10 16:37 | DS ---
Physical Exam: SUBJECTIVE: Patient seen and examined at bedside. The patient is currently POD 1. Patient denies any acute overnight events. Patient denies chest pain, fevers, diaphoresis, numbness or tingling in her upper nor lower extremities. Patient denies dysuria or hematuria. Patient also denies shortness of breath or dyspnea. OBJECTIVE: Vital Signs Period Temp Pulse Resp BP Sys/Torres Pulse Ox Last 24 Hr 98.6 F-99.2 F 79-100 18-20 103-140/60-77 95-97 PHYSICAL EXAM GENERAL: The patient is awake, alert, and fully oriented, in no acute distress. HEAD: Normal with no signs of trauma. LUNGS: Breath sounds equal, clear to auscultation bilaterally, no wheezes, no crackles, no accessory muscle use. HEART: Regular rate and rhythm, S1, S2 without murmur, rub or gallop. ABDOMEN: Soft, nontender, nondistended, normoactive bowel sounds, no guarding, no rebound, no hepatosplenomegaly, no masses. EXTREMITIES: 2+ pulses, warm, well-perfused, no edema. LABS Laboratory Results - last 24 hr 02/10/20 02/10/20 02/10/20 07:15 07:15 07:15 WBC 9.7 RBC 4.41 Hgb 11.9 Hct 36.0 MCV 81.5 MCH 27.0 MCHC 33.1 RDW 13.4 Plt Count 474 H MPV 8.5 Absolute Neuts (auto) 7.3 Neutrophils % 74.8 Neutrophils % (Manual) 70.3 Band Neutrophils % 1.0 Lymphocytes % 15.5 D Lymphocytes % (Manual) 14.9 Monocytes % 5.5 Monocytes % (Manual) 6 D Eosinophils % 3.5 Eosinophils % (Manual) 5.9 H D Basophils % 0.7 Basophils % (Manual) 1.0 Myelocytes % (Man) 1 D Promyelocytes % (Man) 0 Blast Cells % (Manual) 0 Nucleated RBC % 0 Metamyelocytes 0 Hypochromia 0 Platelet Estimate Normal Polychromasia 0 Poikilocytosis 0 Anisocytosis 0 Microcytosis 0 Macrocytosis 0 ESR 46 H D-Dimer Sodium 140 Potassium 4.5 Chloride 106 Carbon Dioxide 24 Anion Gap 9 BUN 16.4 Creatinine 0.6 Est GFR (CKD-EPI)AfAm 111.64 Est GFR (CKD-EPI)NonAf 96.33 Random Glucose 103 Calcium 8.7 Phosphorus 2.8 Magnesium 2.3 Total Bilirubin 0.4 AST 37 ALT 58 Alkaline Phosphatase 114 C-Reactive Protein Total Protein 6.4 Albumin 2.8 L 02/10/20 02/10/20 07:15 07:15 WBC RBC Hgb Hct MCV MCH MCHC RDW Plt Count MPV Absolute Neuts (auto) Neutrophils % Neutrophils % (Manual) Band Neutrophils % Lymphocytes % Lymphocytes % (Manual) Monocytes % Monocytes % (Manual) Eosinophils % Eosinophils % (Manual) Basophils % Basophils % (Manual) Myelocytes % (Man) Promyelocytes % (Man) Blast Cells % (Manual) Nucleated RBC % Metamyelocytes Hypochromia Platelet Estimate Polychromasia Poikilocytosis Anisocytosis Microcytosis Macrocytosis ESR D-Dimer 1270 H Sodium Potassium Chloride Carbon Dioxide Anion Gap BUN Creatinine Est GFR (CKD-EPI)AfAm Est GFR (CKD-EPI)NonAf Random Glucose Calcium Phosphorus Magnesium Total Bilirubin AST ALT Alkaline Phosphatase C-Reactive Protein 3.7 H Total Protein Albumin HOSPITAL COURSE: KIDNEY FINDINGS: The right kidney measures 11.4 cm The left kidney measures 11.4 cm. There is moderate left hydronephrosis secondary to a 1.8 x 1.4 cm obstruc ting calculus in the renal pelvic region. IMPRESSION: Moderate left hydronephrosis secondary to 1.8 cm obstructing calculus left renal pelvis BLADDER U/S FINDINGS: The right ureteral jet was identified. The left ureteral jet was not identified. No bladder masses Pre and post void volume of the urinary bladder were not obtained IMPRESSION: Left ureteral jet not identified An approximately 2 x 1.3 x 0.7 cm calculus is seen within the left renal pelvis also extending partially into a lower pole infundibulum. There is resultant mild hydronephrosis. Prominent diffuse hepatic steatosis. Left-sided spigelian hernia containing fat only. Date of Admission:01/31/20 Praveen is a 64 y/o female with no significant past medical history. The patient presented to the ED with a fever of 103, LUQ pain with NBNB vomitus. The patient was noted to have rigors and satting 89% on RA. She had been admitted for concern of sepsis secondary to UTI d/t L renal calculus. IR had been consulted for a nephrostomy tube placement prior to admission to ICU. She was noted to be hypotensive with elevated lactic acid levels and covid-19 + test. Patient was seen by infectious disease and started on IV abx for acute pyelonephritis secondary to obstructive UTI. Patient had denied convalescent plasma treatment during her ICU admission. She had gradually improved and downgraded to telemetry. She had been consulted by urology (Dr. Jordan) for a ureteroscopy, stone manipulation, and jj stent insertion. The stent was noted to have migrated post op and was repositioned. She had been placed on 30 days of eliquis anticoagulation s/p covid-19 positive inflamatory marker elevation. The patient's fever and rigors had resolved and was discharged for follow up with urology. Date of Discharge: 02/10/20 Minutes to complete discharge: 40 Discharge Summary Problems reviewed: Yes Reason For Visit: SEPSIS/PYELONEPHRITIS Current Active Problems LAINE (acute kidney injury) (Acute) Encounter for screening laboratory testing for COVID-19 virus (Acute) Pyelonephritis of left kidney (Acute) Sepsis (Acute) Ureterolithiasis (Acute) Condition: Stable - Instructions Diet, Activity, Other Instructions: You were evaluated in the hospital for after having left-sided abdominal pain with fever. Labwork and CT imaging was suggestive of a Urinary Tract Infection caused by a kidney stone. You had a stent placed in your kidney system to promote flow. The stent was respositioned a few days later, to optimize flow. You were found to positive for COVID-19. You had few respiratory symptoms. You had elevated inflammatory makers, probably due to COVID-19. These suggest that you are at-risk for future blood clots. You will be started on a new medication to reduce your chances of future clots. Your antibiotics were changed from intravenous to pill. It was determined that you were stable for discharge home. Imaging: showed left-sided kidney stones that seemed to be inhibiting urinary flow. You also had left-sided abdominal wall hernia(a "spigelian hernia") MEDICATIONS: - START taking: --Apixaban[ELIQUIS]: take 5mg twice daily for 24 additional days --Zinc Sulfate[ORAZINC]: 220mg once daily --Ascorbic Acid[VITAMIN C]: 500mg once daily --Ciprofloxacin[CIPRO]: take 500mg twice a day for 5 days Please follow-up with the Physicians below: - Primary Care Physician: please see within 1-2weeks to discuss your recent hospitalization - Urologist(Gloria Jordan): please see within 1-2weeks to discuss the stent within your kidney system Please seek immediate medical evaluation at your doctor's office or the Emergenc y Room if you experience: - fever, chills - nausea, vomiting - localized abdominal pain - painful urination - trouble breathing Referrals: ON STAFF,NOT [Primary Care Provider] - Disposition: HOME - Home Medications Comprehensive Discharge Medication List: Ambulatory Orders Ondansetron [Zofran -] 8 mg PO TID #15 tablet 01/27/20 Oxycodone HCl/Acetaminophen [Percocet 5-325 mg Tablet] 1 - 2 tab PO Q4H #20 tablet MDD 8 01/27/20 Acetaminophen [Tylenol .Extra-Strength -] 1,000 mg PO ASDIR 01/31/20 Apixaban [Eliquis -] 5 mg PO BID #60 tablet 02/10/20 Ascorbic Acid [Vitamin C -] 500 mg PO DAILY #30 tablet 02/10/20 Ciprofloxacin [Cipro (Restricted To Id)] 500 mg PO Q12H #10 tablet 02/10/20 Zinc Sulfate [Orazinc -] 220 mg PO DAILY #30 capsule 02/10/20 This patient is new to me today: No Emergency Visit: Yes ED Registration Date: 01/31/20 Care time: The patient presented to the Emergency Department on the above date and was hospitalized for further evaluation of their emergent condition. Critical Care patient: No - Discharge Referral Referred to [facility] Med P.C.: No ATTENDING PHYSICIAN STATEMENT I saw and evaluated the patient. I reviewed the resident's note and discussed the case with the resident. I agree with the resident's findings and plan as documented. SUBJECTIVE: OBJECTIVE: ASSESSMENT AND PLAN:
--- NOTE | 2020-02-10 18:06 | PN ---
Teaching Attending Note Name of Resident: Otoniel Dawson ATTENDING PHYSICIAN STATEMENT I saw and evaluated the patient. I reviewed the resident's note and discussed the case with the resident. I agree with the resident's findings and plan as documented. SUBJECTIVE: Feeling better, no abdominal pain. No dysuria/hematuria. OBJECTIVE: Afebrile, Hemodynamically Stable. Last Vital Signs Temp Pulse Resp BP Pulse Ox 98.7 F 87 18 119/67 97 02/10/20 13:48 02/10/20 13:48 02/10/20 13:48 02/10/20 13:48 02/10/20 13:48 HEENT -Atraumatic, Normocephalic. Heart - S1, S2, RRR Lungs - clear to auscultation Abdomen - Soft, non-tender. Bowel Sounds normal. Extremities - no edema no calf tenderness. Neuro - AAO x 3. Tone/Power normal. Laboratory Results - last 24 hr 02/10/20 02/10/20 02/10/20 07:15 07:15 07:15 WBC 9.7 RBC 4.41 Hgb 11.9 Hct 36.0 MCV 81.5 MCH 27.0 MCHC 33.1 RDW 13.4 Plt Count 474 H MPV 8.5 Absolute Neuts (auto) 7.3 Neutrophils % 74.8 Neutrophils % (Manual) 70.3 Band Neutrophils % 1.0 Lymphocytes % 15.5 D Lymphocytes % (Manual) 14.9 Monocytes % 5.5 Monocytes % (Manual) 6 D Eosinophils % 3.5 Eosinophils % (Manual) 5.9 H D Basophils % 0.7 Basophils % (Manual) 1.0 Myelocytes % (Man) 1 D Promyelocytes % (Man) 0 Blast Cells % (Manual) 0 Nucleated RBC % 0 Metamyelocytes 0 Hypochromia 0 Platelet Estimate Normal Polychromasia 0 Poikilocytosis 0 Anisocytosis 0 Microcytosis 0 Macrocytosis 0 ESR 46 H D-Dimer Sodium 140 Potassium 4.5 Chloride 106 Carbon Dioxide 24 Anion Gap 9 BUN 16.4 Creatinine 0.6 Est GFR (CKD-EPI)AfAm 111.64 Est GFR (CKD-EPI)NonAf 96.33 Random Glucose 103 Calcium 8.7 Phosphorus 2.8 Magnesium 2.3 Total Bilirubin 0.4 AST 37 ALT 58 Alkaline Phosphatase 114 C-Reactive Protein Total Protein 6.4 Albumin 2.8 L 02/10/20 02/10/20 07:15 07:15 WBC RBC Hgb Hct MCV MCH MCHC RDW Plt Count MPV Absolute Neuts (auto) Neutrophils % Neutrophils % (Manual) Band Neutrophils % Lymphocytes % Lymphocytes % (Manual) Monocytes % Monocytes % (Manual) Eosinophils % Eosinophils % (Manual) Basophils % Basophils % (Manual) Myelocytes % (Man) Promyelocytes % (Man) Blast Cells % (Manual) Nucleated RBC % Metamyelocytes Hypochromia Platelet Estimate Polychromasia Poikilocytosis Anisocytosis Microcytosis Macrocytosis ESR D-Dimer 1270 H Sodium Potassium Chloride Carbon Dioxide Anion Gap BUN Creatinine Est GFR (CKD-EPI)AfAm Est GFR (CKD-EPI)NonAf Random Glucose Calcium Phosphorus Magnesium Total Bilirubin AST ALT Alkaline Phosphatase C-Reactive Protein 3.7 H Total Protein Albumin Current Medications Generic Name Dose Route Start Last Admin Trade Name Freq PRN Reason Stop Dose Admin Acetaminophen 650 mg 02/07/20 07:25 Tylenol - PO Q6H PRN Fever Or Pain Apixaban 5 mg 02/05/20 22:00 02/10/20 09:26 Eliquis - PO 5 mg BID KAREN Administration Ascorbic Acid 500 mg 02/06/20 10:00 02/10/20 09:26 Vitamin C - PO 500 mg DAILY KAREN Administration Meropenem 1 gm/ Dextrose 100 mls @ 200 mls/hr 02/07/20 10:00 02/10/20 09:27 IVPB 200 mls/hr Q8H-IV KAREN Administration Magnesium Chloride 128 mg 02/06/20 10:00 02/10/20 09:26 Slow-Mag - PO 128 mg DAILY KAREN Administration Zinc Sulfate 220 mg 02/06/20 10:00 02/10/20 09:26 Orazinc - PO 220 mg DAILY KAREN Administration Home Medications Medication Instructions Recorded Ondansetron [Zofran -] 8 mg PO TID #15 tablet 01/27/20 Oxycodone HCl/Acetaminophen 1 - 2 tab PO Q4H #20 tablet MDD 8 01/27/20 [Percocet 5-325 mg Tablet] Acetaminophen [Tylenol 1,000 mg PO ASDIR 01/31/20 .Extra-Strength -] Apixaban [Eliquis -] 5 mg PO BID #60 tablet 02/10/20 Ascorbic Acid [Vitamin C -] 500 mg PO DAILY #30 tablet 02/10/20 Ciprofloxacin [Cipro (Restricted 500 mg PO Q12H #10 tablet 02/10/20 To Id)] Zinc Sulfate [Orazinc -] 220 mg PO DAILY #30 capsule 02/10/20 ASSESSMENT AND PLAN: 64 year old female with no significant past medical history, presented with fevers and worsening left flank pain, found to have obstructive kidney stone. 1. Acute complicated UTI secondary to L sided Ureteral Stone causing obstru ction/hydronephrosis POD 1 s/p L ureteroscopy and repositioning of JJ stent after cephalic migration Received IV meropenem. Discussed with ID - for discharge on Cipro 500mg BID for 5 days Urology follow up as out-patient. 2. COVID Pneumonitits Titrated off supplemental O2. Initial fever resolved. Stable hemodynamic and respiratory status. AC with eliquis for 30 days. Continue Zinc, Vitamin C
--- NOTE | 2020-02-11 10:55 | PN ---
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 She is status post placement of a left JJ stent. CAT scans revealed possible cephalic migration of stent into the lower parenchyma of the left kidney. Therefore, yesterday patient underwent cystoscopy and dislodgment of stent. X-rays confirmed good position of proximal and distal stents. Presently the patient is afebrile. She denies any pain. Her white count is 9000. BUN is 16.9 and creatinine is 0.6. She is voiding well. IMPRESSION: No postoperative events. Patient is cleared for discharge. Will follow in office. Elizabeth [id number]
== END 2020-02-10 18:13 | disposition home or self-care (01) | DRG 853 ==
LOC: FER 19:20 → SUPCPDRO 19:20 → FM/S 21:26 → JICU 02-02 17:48 → J6S 02-06 20:17
PROVIDERS: ADMIT Internal Medicine
PROC: 0T9130Z Drainage of Left Kidney with Drainage Device, Percutaneous Approach (ICD-10-PCS; principal; 2020-02-02)
PROC: 0T9780Z Drainage of Left Ureter with Drainage Device, Via Natural or Artificial Opening Endoscopic (ICD-10-PCS; 2020-02-04)
PROC: BT1FZZZ Fluoroscopy of Left Kidney, Ureter and Bladder (ICD-10-PCS; 2020-02-04)
PROC: 0TP5X0Z Removal of Drainage Device from Kidney, External Approach (ICD-10-PCS; 2020-02-04)
PROC: 0T778DZ Dilation of Left Ureter with Intraluminal Device, Via Natural or Artificial Opening Endoscopic (ICD-10-PCS; 2020-02-04 14:00)
PROC: 0T778DZ Dilation of Left Ureter with Intraluminal Device, Via Natural or Artificial Opening Endoscopic (ICD-10-PCS; 2020-02-09)
PROC: BT02ZZZ Plain Radiography of Left Kidney (ICD-10-PCS; 2020-02-09)
DX: A41.89 Other specified sepsis (principal); U07.1 COVID-19; N39.0 Urinary tract infection, site not specified; N17.9 Acute kidney failure, unspecified; N13.6 Pyonephrosis; E87.2 Acidosis; T83.123A Displacement of other urinary stents, initial encounter; R65.20 Severe sepsis without septic shock; D64.9 Anemia, unspecified; R06.02 Shortness of breath; R10.12 Left upper quadrant pain; Y83.8 Other surgical procedures as the cause of abnormal reaction of the patient, or of later complication, without mention of misadventure at the time of the procedure
CPT/HCPCS: 36415; 50432; 71045-TC-FY; 71046-TC-FY; 74018-TC-FY; 74176-TC; 76000-TC-FY; 76098-TC-FY; 76775-TC; 76856-TC; 76998-TC; 80048; 80053; 81003; 81015; 82550; 82553; 82728; 83605; 83615; 83735; 84100; 85025; 85027; 85379; 85610; 85651; 85730; 86140; 86850; 86900; 86901; 87040; 87070; 87075; 87086; 87205; 87899; 93005; 94760; 97116-GP; 97161-GP; 99285-25; A4358; C1729; C1769; J0131; J1644; U0003